=== PATIENT | male | born 1970 | race Caucasian/White ===

== ENCOUNTER → 2020-07-03 09:12 | Outpatient (BNVA) | payer OTHER, SELFPAY | PROVIDERS: PCP Internal Medicine; Referring Provider Internal Medicine; Visit Provider Physician Assistant | DX: M75.81 Other shoulder lesions, right shoulder (principal) | CPT/HCPCS: 99213 ==

== ENCOUNTER 2020-07-31 08:16 | Outpatient (REF) | payer OTHER, SELFPAY ==
--- NOTE | 2020-07-31 08:59 | XR_ITS ---
EXAMINATION: KUB CLINICAL INFORMATION: Abdominal pain COMPARISON: None TECHNIQUE: Supine view of the abdomen and pelvis FINDINGS: There are no dilated loops of bowel. There is no evidence of free air. No calcifications are seen. Bony structures are unremarkable. XR/XR lumbar spine 2-3V IMPRESSION: Unremarkable exam. EXAMINATION: Lumbar spine x-ray CLINICAL INFORMATION: Pain COMPARISON: None. TECHNIQUE: 3 views lumbar spine FINDINGS: Bone alignment is normal. No fracture or dislocation is seen. Disc spaces are normal. IMPRESSION: Unremarkable examination.
--- NOTE | 2020-07-31 08:59 | XR_ITS ---
EXAMINATION: KUB CLINICAL INFORMATION: Abdominal pain COMPARISON: None TECHNIQUE: Supine view of the abdomen and pelvis FINDINGS: There are no dilated loops of bowel. There is no evidence of free air. No calcifications are seen. Bony structures are unremarkable. XR/XR abdomen min 2V IMPRESSION: Unremarkable exam. EXAMINATION: Lumbar spine x-ray CLINICAL INFORMATION: Pain COMPARISON: None. TECHNIQUE: 3 views lumbar spine FINDINGS: Bone alignment is normal. No fracture or dislocation is seen. Disc spaces are normal. IMPRESSION: Unremarkable examination.
[2020-07-31 09:35] LABS: MANUAL DIFF FLAG NO
[2020-07-31 09:45] LABS: Basophils Absolute Auto 0.1 X10*3/uL (0.0-0.2); Basophils Percent Auto 0.7 % (0-2); Eosinophils Absolute Auto 0.4 X10*3/uL (0.0-0.4); Hematocrit 43.4 % (42-52); Hemoglobin 14.7 g/dl (14.0-18.0); Imm Gran Abs Auto 0.03 X10*3/uL (0.00-0.03); Imm Gran Pct Auto 0.3 % (0.0-0.4); Lymphocytes Absolute Auto 3.3 X10*3/uL (1.2-4.9); Lymphocytes Percent Auto 37.6 % (20-40); Mean Corpuscular HGB Conc 33.9 g/dl (31.0-36.0); Mean Corpuscular Hemoglobin 30.2 pg (27.0-33.0); Mean Corpuscular Volume 89.3 fL (80-98); Mean Platelet Volume 11.2 fL (9.4-12.4); Monocytes Absolute Auto 0.7 X10*3/uL (0.1-1.2); Monocytes Percent Auto 7.7 % (2-11); Neutrophils Absolute Auto 4.3 X10*3/uL (2.0-8.3); Neutrophils Percent Auto 49.7 % (45-73); Platelet Count 316 X10*3/uL (160-400); Red Blood Count 4.86 X10*6/uL (4.60-5.80); Red Cell Distribution Width 12.1 % (11.0-16.0); White Blood Count 8.7 X10*3/uL (4.8-10.8)
[2020-07-31 10:08] LABS: Alanine Aminotransferase 34 U/L (0-40); Albumin Level 4.8 g/dL (3.5-5.0); Alkaline Phosphatase 88 U/L (39-117); Anion Gap 11 (12-20); Aspartate Amino Transferase 21 U/L (5-37); Bilirubin Total 0.5 mg/dL (0.0-1.0); Blood Urea Nitrogen 15 mg/dL (9-16); C Reactive Protein 0.99 mg/dL (< or = 0.50); Calcium 9.3 mg/dL (8.4-10.2); Carbon Dioxide 30 mmol/L (22-29); Chloride 105 mmol/L (96-108); Cholesterol 160 mg/dL; Estimated Glomerular Filt Rate > 60; Glucose Fasting 106 mg/dL (60-99); HDL Cholesterol 31 mg/dL; LDL Cholesterol Calculated 73 mg/dl; Sodium 141 mmol/L (135-145); Total Protein 7.3 g/dL (6.5-8.0); Triglycerides 282 mg/dL
[2020-07-31 10:30] LABS: TSH reflex Free T4 0.28 mIU/mL (0.32-4.0)
[2020-07-31 10:52] LABS: Glucose Urine UA NEG (NEG); Leukocyte Esterase Urine NEG (NEG); Nitrite Urine NEG (NEG); Specific Gravity - Urine 1.015 (1.005-1.025); Urine Blood NEG (NEG); Urine Ketones NEG (NEG); Urine Protein NEG (NEG-TRACE)
[2020-07-31 10:58] LABS: Appearance Urine CLEAR; Color Urine YELLOW
[2020-07-31 11:03] LABS: Free T4 (Free Thyroxine) 1.04 ng/dL (0.71-1.85)
[2020-07-31 11:07] LABS: Erythrocyte Sedimentation Rate 5 MM/HR (0-15)
== END 2020-07-31 08:17 | disposition home or self-care (01) ==
LOC: HO.LAB 08:16
PROVIDERS: Visit Provider Internal Medicine
DX: Z00.00 Encounter for general adult medical examination without abnormal findings (principal); F17.200 Nicotine dependence, unspecified, uncomplicated; M79.601 Pain in right arm; M54.5 Low back pain; G43.909 Migraine, unspecified, not intractable, without status migrainosus; I10 Essential (primary) hypertension; E66.9 Obesity, unspecified; R10.9 Unspecified abdominal pain
CPT/HCPCS: 36415; 72100; 74019; 80053; 80061; 81003; 84153; 84439; 84443; 85025; 85652; 86140

== ENCOUNTER 2020-11-04 08:00 | Outpatient (RCR) | payer OTHER, SELFPAY ==
[2020-08-20 08:10] VITALS: BP 158/96; PULSE 72
--- NOTE | 2020-08-20 16:43 | MHC.PT.EP ---
[facility] [place] Office [place] Office [place] Office [address] Reagan Meza [address] [phone] F: [phone] F: [phone] F: [phone] F: [phone] Physical Therapy Plan of Care Date of Evaluation: 08/20/20 Date of Surgery: 10/30/19 Diagnosis: PAIN IN RIGHT ARM (M79.601) OTHER SHOULDER LESIONS, UNSPECIFIED SHOULDER (M75.80) PER DR. RESENDEZ Assessment: POOJA ARRIVES WITH C/O SHOULDER AND ARM PAIN. IMPAIRMENTS INCLUDE DECREASED CERVICAL, SHOULDER ROM AND STRENGTH, DECREASED BICEPS STRENGTH, ALTERED POSTURE AND POSITIONING, DECREASED SOFT TISSUE MOBILITY, INCREASED PAIN. FUNCTIONAL LIMITATIONS INCLUDE DECREASED TOLERANCE TO LIFTING, REACHING, PUSHING, PULLING AND LIFTING. HE REPORTS DECREASED ABIOLITY TO PERFORM HOMEMAKING AND SELF CARE TASKS, DECRESAED ABILITY TO PARTICIPATE IN WORK AND RECREATIONAL ACTIVITIES AND DISRUPTED SLEEP. HE IS A GOOD CANDDIDATE FOR PT TO ADDRESS IMPAIRMENTS AND IMPROVE FUNCTIONAL OUTCOMES. Frequency and Duration: The patient will be seen 2 X WEEK FOR 6 WEEKS Short Term Goals: INITIATE HEP AND PROMOTE SELF MANAGEMENT OF SYMPTOMS IN 6 WEEKS Longterm Goals: FULL, PAIN FREE GLENOHUMERAL MOBILITY IN 6 W[address]KS TO BE ABLE TO PLACE OBJECT OF AT LEAST 3# ON TO SHELF ABOVE SHOULDER HEIGHT IN 6 WEEKS TO REPORT PAIN NO GREATER THAN 2/10 WITH ADLs IN 6 WEEKS SPADI SCORE OF NO GREATER THAN 45% DISABILITY IN 6 WEEKS [ End ] Treatment Plan: Modalities to reduce pain, spasms and effusion. Manual therapy to restore motion and function. Therapeutic exercise to improve strength and flexibility. Neuromuscular re-education for posture and balance. Therapeutic activities to return to functional activities of daily living. Please sign and return to therapist. Thank you for your referral.
--- NOTE | 2021-01-12 14:19 | MHC.PT.DC ---
[facility] [place] Office [place] Office [place] Office [address] Reagan Meza [address] [facility] [phone] F: [phone] F: [phone] F: [phone] F: [phone] Physical Therapy Discharge Report Diagnosis: PAIN IN RIGHT ARM (M79.601) OTHER SHOULDER LESIONS, UNSPECIFIED SHOULDER (M75.80) PER DR. RESENDEZ Date of Surgery: 10/30/19 Date of Evaluation: 08/20/20 Date of Discharge: 01/12/21 Treatments to Date: 12 Cancellations to Date: 0 No Shows to Date: 0 Discharge Status: Independent with HEP Discharge Summary: INSURANCE VISITS ARE FINISHED OF TODAY, HE IS INDEPENDENT WITH HEP AND ABLE TO SELF MANAGE SYMPTOMS AR THIS TIME. DC TO HEP Electronically signed by: Luanne Badillo PT DPT Please sign and return to therapist. Thank you for your referral.
== END 2021-01-12 14:21 | disposition other institution (70) ==
LOC: HO.PT 08:00
PROVIDERS: PCP Internal Medicine; Visit Provider Internal Medicine
DX: M79.601 Pain in right arm (principal); M75.80 Other shoulder lesions, unspecified shoulder
CPT/HCPCS: 97033; 97110; 97140; 97162; 97530; 97535

== ENCOUNTER 2020-11-10 09:43 | Outpatient (REF) | payer OTHER, SELFPAY ==
--- NOTE | ~2020-11-10 | CT_ITS ---
EXAMINATION: CT HEAD WITHOUT CONTRAST CLINICAL INFORMATION: Headache COMPARISON: None TECHNIQUE: Contiguous axial imaging was performed from the skull base to vertex without intravenous administration of contrast. This CT examination was performed using dose optimization techniques as appropriate, variously including the following: *Automated exposure control *Adjustment of mA and/or kV according to patient size (this includes techniques or standardized protocols for targeted exams where dose is matched to indication/reason for exam; i.e. extremities or head) *Use of iterative reconstruction technique DLP: 824 mGy-cm FINDINGS: There is no evidence of acute intracranial hemorrhage or territorial infarction. No abnormal mass effect or midline shift is seen. Martinez to white matter differentiation is well preserved. No extra-axial fluid collections are identified. The ventricles are normal in size. There is no abnormal attenuation within the brain parenchyma. The osseous structures and soft tissues are normal. There are mild soft tissue thickening in the right maxillary, bilateral ethmoid and left frontal sinuses. CT/CT head/brain wo con IMPRESSION: No acute intracranial findings. Mild inflammatory changes in the paranasal sinuses.
== END 2020-11-10 09:44 | disposition home or self-care (01) ==
LOC: HO.CT 09:43
PROVIDERS: Visit Provider Internal Medicine
DX: R51.9 Headache, unspecified (principal); G89.29 Other chronic pain
CPT/HCPCS: 70450

== ENCOUNTER 2021-11-08 09:53 | Outpatient (REF) | payer OTHER, SELFPAY ==
[2021-11-08 10:24] LABS: MANUAL DIFF FLAG NO
[2021-11-08 10:40] LABS: Basophils Absolute Auto 0.1 X10*3/uL (0.0-0.2); Eosinophils Absolute Auto 0.5 X10*3/uL (0.0-0.4); Eosinophils Percent Auto 5.3 % (0-4); Hematocrit 45.2 % (42.0-52.0); Hemoglobin 15.5 g/dl (14.0-18.0); Imm Gran Abs Auto 0.04 X10*3/uL (0.00-0.03); Imm Gran Pct Auto 0.4 % (0.0-0.4); Lymphocytes Absolute Auto 3.9 X10*3/uL (1.2-4.9); Lymphocytes Percent Auto 39.1 % (20-40); Mean Corpuscular HGB Conc 34.3 g/dl (31.0-36.0); Mean Corpuscular Hemoglobin 30.4 pg (27.0-33.0); Mean Corpuscular Volume 88.6 fL (80.0-98.0); Monocytes Absolute Auto 0.7 X10*3/uL (0.1-1.2); Monocytes Percent Auto 6.8 % (2-11); Neutrophils Absolute Auto 4.7 x10*3/uL (2.0-8.3); Neutrophils Percent Auto 47.4 % (45-73); Platelet Count 300 X10*3/uL (160-400); Red Cell Distribution Width 12.2 % (11.0-16.0); White Blood Count 9.9 X10*3/uL (4.8-10.8)
[2021-11-08 10:44] LABS: Appearance Urine CLEAR; Color Urine YELLOW; Glucose Urine UA NEG (NEG); Leukocyte Esterase Urine NEG (NEG); Nitrite Urine NEG (NEG); PH 6.5 (5.0-8.0); Specific Gravity - Urine 1.015 (1.005-1.025); Urine Blood NEG (NEG); Urine Ketones NEG (NEG); Urine Protein NEG (NEG-TRACE)
[2021-11-08 11:12] LABS: Alanine Aminotransferase 36 U/L (0-40); Albumin Level 4.6 g/dL (3.5-5.0); Alkaline Phosphatase 73 U/L (39-117); Anion Gap 16 (12-20); Aspartate Amino Transferase 20 U/L (5-37); Bilirubin Total 0.7 mg/dL (0.0-1.0); Blood Urea Nitrogen 12 mg/dL (9-16); C Reactive Protein 0.42 mg/dL (< or = 0.50); Carbon Dioxide 25 mmol/L (22-29); Chloride 104 mmol/L (96-108); Cholesterol 205 mg/dL; Estimated Glomerular Filt Rate > 60; Glucose Fasting 111 mg/dL (60-99); HDL Cholesterol 33 mg/dL; Potassium 4.5 mmol/L (3.3-5.1); Sodium 140 mmol/L (135-145); Total Protein 7.6 g/dL (6.5-8.0); Triglycerides 529 mg/dL; Uric Acid 6.6 mg/dL (3.4-7.0)
[2021-11-08 11:22] LABS: Erythrocyte Sedimentation Rate 2 MM/HR (0-15)
[2021-11-08 11:34] LABS: Prostate Specific Antigen 0.34 ng/mL (<0.05-4.0); Vitamin D 25-OH Total 8.8 ng/mL (>30)
[2021-11-08 11:53] LABS: Folate 13.2 ng/mL (> or = 4.0); Vitamin B12 329 pg/mL (200-900)
== END 2021-11-08 09:54 | disposition home or self-care (01) ==
LOC: HO.XRAY 09:53
PROVIDERS: PCP Internal Medicine; Visit Provider Internal Medicine
DX: E55.9 Vitamin D deficiency, unspecified (principal); E53.8 Deficiency of other specified B group vitamins; M10.9 Gout, unspecified; I10 Essential (primary) hypertension; E78.00 Pure hypercholesterolemia, unspecified; N40.0 Benign prostatic hyperplasia without lower urinary tract symptoms; M79.632 Pain in left forearm; M79.674 Pain in right toe(s)
CPT/HCPCS: 36415; 80053; 80061; 81003; 82306; 82607; 82746; 84153; 84443; 84550; 85025; 85652; 86140

== ENCOUNTER 2021-11-25 11:23 | Outpatient (REF) | payer MEDICAID, SELFPAY ==
--- NOTE | ~2021-11-25 | XR_ITS ---
EXAMINATION: XR HAND, RIGHT XR HAND, LEFT CLINICAL INFORMATION: Other specified soft tissue disorders. COMPARISON: Left wrist radiographs dated 04/26/2016. TECHNIQUE: AP, oblique, and lateral views of the right and left hands. FINDINGS: RIGHT HAND: No acute fracture or dislocation. Mild joint space narrowing with small marginal osteophyte at the 1st carpometacarpal joint. Normal carpal alignment. No osseous erosion. Probable capsular calcifications at the 2nd distal interphalangeal joint. LEFT HAND: No fracture or dislocation. Normal carpal alignment. No significant joint space narrowing or marginal osteophytes. No osseous erosion. No periarticular osteopenia. No abnormal soft tissue calcification. XR/XR hand RT min 3V IMPRESSION: Right Hand: Mild osteoarthritis at the 1st carpometacarpal joint. Left Hand: Unremarkable examination.
--- NOTE | ~2021-11-25 | XR_ITS ---
EXAMINATION: XR HAND, RIGHT XR HAND, LEFT CLINICAL INFORMATION: Other specified soft tissue disorders. COMPARISON: Left wrist radiographs dated 04/26/2016. TECHNIQUE: AP, oblique, and lateral views of the right and left hands. FINDINGS: RIGHT HAND: No acute fracture or dislocation. Mild joint space narrowing with small marginal osteophyte at the 1st carpometacarpal joint. Normal carpal alignment. No osseous erosion. Probable capsular calcifications at the 2nd distal interphalangeal joint. LEFT HAND: No fracture or dislocation. Normal carpal alignment. No significant joint space narrowing or marginal osteophytes. No osseous erosion. No periarticular osteopenia. No abnormal soft tissue calcification. XR/XR hand LT min 3V IMPRESSION: Right Hand: Mild osteoarthritis at the 1st carpometacarpal joint. Left Hand: Unremarkable examination.
[2021-11-25 12:04] LABS: Estimated Average Glucose 108 mg/dL; Hemoglobin A1c % 5.4 %
[2021-11-25 12:33] LABS: Rheumatoid Factor < 15.0 IU/mL (<15.0)
[2021-11-25 12:38] LABS: Erythrocyte Sedimentation Rate 3 MM/HR (0-15)
[2021-11-27 14:31] LABS: Anti Nuclear Antibody Screen NEGATIVE (NEGATIVE)
== END 2021-11-25 11:24 | disposition home or self-care (01) ==
LOC: HO.LAB 11:23
PROVIDERS: PCP Internal Medicine; Visit Provider Internal Medicine
DX: M79.641 Pain in right hand (principal); M79.642 Pain in left hand; M79.89 Other specified soft tissue disorders; R73.01 Impaired fasting glucose
CPT/HCPCS: 36415; 73130; 83036; 85652; 86038; 86039; 86431

== ENCOUNTER → 2021-12-10 09:49 | Outpatient (REF) | payer MEDICAID, SELFPAY ==
--- NOTE | 2021-12-10 09:57 | CA_ITS ---
Acquisition Time: 2021-12-10 10:41:20 Total Exercise Time: 00:06:18 Test Indications: CP Medications: SEE CHART Protocol: CALLIE Max HR: 144 BPM 84% of Pred: 171 BPM Max BP: 184/090 mmHG Max Work Load: 7.4 METS Exercise stress test with exercise 6 min 18 sec of Callie protocol, briefly achieving 84% MPHR, with moderate shortness of breath, with 4/10 left upper/lateral chest discomfot at baseline which improved and then resolved during exercise, without arrythmia, with normotensive response to exercise, without EKG changes meeting criteria for ischemia at achieved workload. Accuracy to assess for ischemia slightly decreased due to inablity to acheive 85% MPHR. In recovery he did report a return of his baseline chest discomfort at 5/10, which feels better if he raises his left arm above his head - atypical for anginal. In late recovery EKGs showed nonspecific T wave abnormality V6. Test reviewed with Dr Neal Referred By: Kalia Varghese Overread By: ANDERS CLINE
== END ==
LOC: HO.CARD 09:49
PROVIDERS: PCP Internal Medicine; Visit Provider Internal Medicine
DX: R07.9 Chest pain, unspecified (principal)
CPT/HCPCS: 93017

== ENCOUNTER 2022-03-29 10:37 | Outpatient (REF) | payer OTHER, SELFPAY ==
--- NOTE | ~2022-03-29 | XR_ITS ---
EXAMINATION: XR FOOT, LEFT CLINICAL INFORMATION: M79.672 - Pain in left foot. Pain between first and second metatarsal. COMPARISON: None TECHNIQUE: AP, lateral, and oblique views of the left foot. FINDINGS: No acute or healing fracture, dislocation, destructive process. No periostitis. No focal significant joint narrowing. No erosive changes or chondrocalcinosis. No hallux valgus. There are borderline posterior and plantar calcaneal spurs. Retrocalcaneal recess preserved. Subtalar joint unremarkable. XR/XR foot LT min 3V IMPRESSION: Borderline tiny posterior and plantar calcaneal spurs.
== END 2022-03-29 10:38 | disposition home or self-care (01) ==
LOC: HO.XRAY 10:37
PROVIDERS: PCP Internal Medicine; Visit Provider Internal Medicine
DX: M79.672 Pain in left foot (principal)
CPT/HCPCS: 73630

== ENCOUNTER → 2022-04-21 13:33 | Outpatient (BNVA) | payer OTHER, SELFPAY | PROVIDERS: PCP Internal Medicine; Visit Provider Internal Medicine | DX: R07.9 Chest pain, unspecified (principal); I10 Essential (primary) hypertension; E78.1 Pure hyperglyceridemia; F17.210 Nicotine dependence, cigarettes, uncomplicated; Z79.899 Other long term (current) drug therapy | CPT/HCPCS: 93005; 99202 ==

== ENCOUNTER → 2022-07-13 13:23 | Outpatient (BNVA) | payer OTHER, SELFPAY | PROVIDERS: PCP Internal Medicine; Referring Provider Internal Medicine; Visit Provider Surgery | DX: K42.9 Umbilical hernia without obstruction or gangrene (principal); E78.1 Pure hyperglyceridemia; R73.01 Impaired fasting glucose; E66.9 Obesity, unspecified; F17.210 Nicotine dependence, cigarettes, uncomplicated; Z68.30 Body mass index [BMI] 30.0-30.9, adult | CPT/HCPCS: 99202 ==

== ENCOUNTER 2022-08-10 14:03 | Outpatient (REF) | payer OTHER, SELFPAY ==
--- NOTE | ~2022-08-10 | XR_ITS ---
EXAMINATION: XR ANKLE, RIGHT CLINICAL INFORMATION: Pain COMPARISON: None TECHNIQUE: AP, lateral, and mortise views of the right ankle. FINDINGS: The ankle mortise and subtalar joints are normal. No bony erosive changes or loose bodies seen. There is a small calcaneal heel enthesophyte. XR/XR ankle RT min 3V IMPRESSION: Small calcaneal heel enthesophyte. No visible acute fracture or dislocation seen. The soft tissues are normal.
== END 2022-08-10 14:04 | disposition home or self-care (01) ==
LOC: HO.XRAY 14:03
PROVIDERS: PCP Internal Medicine; Referring Provider Internal Medicine; Visit Provider Nurse Practitioner Family
DX: R07.9 Chest pain, unspecified (principal); E78.1 Pure hyperglyceridemia; I10 Essential (primary) hypertension; M25.571 Pain in right ankle and joints of right foot
CPT/HCPCS: 73610; 93005; 99212

== ENCOUNTER → 2022-08-23 07:32 | Outpatient (REF) | payer OTHER, SELFPAY ==
--- NOTE | 2022-08-23 07:36 | CA_ITS ---
Transthoracic Echocardiogram Patient (Last, First, Middle): Ramon Rush, Gender: Male Date of : 1970 Age: 51 Procedure Date: 08/23/2022 Procedure Type: Transthoracic Echocardiogram Location: OP Height: 180.34 cm Weight: 89.36 kg BSA: 2.10 m2 Heart Rate: 72 bpm BP: 145 / 95 mmHg [employer] Instructor: ZAID Moon MD: Efrain Galarza MD Proposal Coordinator: Lizandro Casas MD Symptoms: R07.9 - Chest pain, unspecified Study Quality: Fair/Contrast ECG Rhythm: Sinus Conclusions: - 1. Normal LV systolic function 2. Normal cardiac valvular Doppler 3. Upper limits of normal ascending aortic size 4. No gross pericardial effusion Findings Procedure Information Contrast agent, definity, is being given per protocol without apparent complications. Left Ventricle Normal left ventricular size, thickness, and systolic function. The visually estimated ejection fraction is between 55-60%. Spectral Doppler is indicative of a normal filling pattern. Right Ventricle Normal right ventricular cavity size and systolic function. Atria The left atrium is normal in size. There is lipomatous hypertrophy of the interatrial septum. There is no evidence of interatrial shunt. The right atrium is normal in size. Aortic Valve There is mild calcification of the aortic valve. There is no aortic valve stenosis. There is no aortic valve regurgitation. Mitral Valve Likely normal mitral valve structure and function. There is no mitral valve stenosis. Tricuspid Valve Likely normal tricuspid valve structure and function. Tricuspid regurgitation envelope is inadequate for calculation of right ventricular systolic pressure. Normal right atrial pressure. Great Vessels All visible segments of the aorta are normal in size. The pulmonary artery was not well visualized. Venous The inferior vena cava is normal in size and collapses greater than 50% with inspiration. Pericardium/Pleural There is no evidence of pericardial effusion. Prior Study Comparison No prior study available for comparison. Measurements 2D Linear Measurements IVSd: 1.19 0.6-0.9/0.6-1.0 cm LVIDd: 5.21 3.9-5.3/4.2-5.9 cm LVIDd Index: 2.48 2.4-3.2/2.2-3.1 cm/m2 LVIDs: 2.94 2.0-3.6 cm LVPWd: 1.12 0.7-1.1 cm LA Diam: 4.00 2.7-3.8/3.0-4.0 cm LAIDs Index: 1.90 1.5-2.3 cm/m2 LV Mass: 295.19 67-162/88-224 g LV Mass Index: 140.57 43-95/49-115 g/m2 LVOT Diam: 2.30 3.0+(-)1.3 cm 2D Systolic Function EF 4C: 55.70 >55% EF 2C: 63.90 >55% EF BiP: 59.70 >55% Mitral Valve MV Pk E: 0.76 MV PK A: 0.57 MV Decel Time: 247.00 E/A: 1.30 E'Lateral: 11.00 E'Medial: 7.94 E/E' Med: 9.60 E/E' Lat: 6.90 PHT: 72.00 MVA PHT: 3.06 Decel Gilliam: 3.09 Aortic Valve AoV Pk Carlos: 1.51 AoV Mn Carlos: 0.96 AoV VTI: 0.25 AoV Pk Grad: 9.00 Aov Mn Grad: 4.00 ANAHY Cont.VTI: 3.40 LVOT LVOT Pk Carlos: 1.15 LVOT Mn Carlos: 0.77 LVOT VTI: 0.21 LVOT Pk Grad: 5.00 LVOT Mn Grad: 3.00 LVOT Diam: 2.30 LVOT Area: 4.15 Diastolic Function MV Pk E: 0.76 MV Pk A: 0.57 E/A: 1.30 E'Medial: 7.94 E/E' Med: 9.60 E' Laterial: 11.00 E/E' Lat: 6.90 Right Ventricle TAPSE (mm): 20.30 TVS' Carlos: 12.40 Tricuspid Valve RA Press: 3.00 Great Vessels Aorta Sinus of Valsalva: 3.70 2.0-3.5 cm Ao Asc: 3.70 2.1-3.4 cm Pulmonary Valve PV Pk Carlos: 1.05 Peak PV Grad: 4.00 Updated in Other Vendor System with Status of Final Lizandro Casas MD electronically signed on 08/26/2022 3:24:22 PM with status of Final
== END ==
LOC: HO.CARD 07:32
PROVIDERS: PCP Internal Medicine; Visit Provider Internal Medicine
DX: R07.9 Chest pain, unspecified (principal)
CPT/HCPCS: 93306; Q9957

== ENCOUNTER → 2022-09-07 08:17 | Outpatient (REF) | payer OTHER, SELFPAY ==
--- NOTE | 2022-09-07 08:18 | CA_ITS ---
Acquisition Time: 2022-09-07 08:28:14 Total Exercise Time: 00:08:00 Test Indications: CP Medications: SEE CHART Protocol: CALLIE Max HR: 157 BPM 92% of Pred: 170 BPM Max BP: 218/114 mmHG Max Work Load: 10.1 METS Exercise stress test with exercise 8 min of Callie protocol, achieving 92% MPHR, 10.1 METs, without anginal symptoms, with isolated PACs and PVCs, with hypertensive response to exercise with max BP 218/114, without EKG changes meeting criteria for ischemia. In recovery there is downslope of ST V6, nonspecific. BP gradually improved in recovery down to 142/100, asymptomatic. He was given his usual home Losartan 50mg which he had not taken yet this am. Test reviewed with Dr Neal. Referred By: Efrain Galarza Overread By: ANDERS CLINE
== END ==
LOC: HO.CARD 08:17
PROVIDERS: PCP Internal Medicine; Visit Provider Internal Medicine
DX: R07.9 Chest pain, unspecified (principal)
CPT/HCPCS: 93017

== ENCOUNTER 2023-03-23 09:33 | Outpatient (REF) | payer OTHER, SELFPAY | END 2023-03-23 09:34 | disposition home or self-care (01) | LOC: HO.NEURO 09:33 | PROVIDERS: PCP Internal Medicine; Visit Provider Internal Medicine | DX: R20.2 Paresthesia of skin (principal); M79.641 Pain in right hand; M79.642 Pain in left hand | CPT/HCPCS: 95886; 95911 ==

== ENCOUNTER 2023-08-17 10:21 | Outpatient (AMB) | payer OTHER, SELFPAY ==
[2023-08-17 10:22] VITALS: BP 150/105; PULSE 71; O2SAT 98; BMI 28.9
--- NOTE | 2023-08-17 10:22 | MHC.PC.OV ---
Vital Signs 08/17/23 10:22 08/17/23 11:00 Height 5 ft 8 in Weight 190 lb BMI 28.9 BP 150/105 H 150/100 H Blood Pressure Location Lt brachial Lt brachial Position Sitting Sitting Pulse 71 Pulse Source Pulse Oximeter Pulse Oximetry (%) 98 Oxygen Delivery Method Room Air Intake Visit Reasons: discuss labs+concerns Network Consultant Required: No Rn Labor And Delivery: Not Required per policy Accompanied by: Self / Same As Patient Allergies tizanidine [TIZANIDINE] Allergy (Severe, Verified 08/17/23 10:50) FACIAL SWELLING, angioedema Medication List - Last Reconciled 08/17/23 by Kalia Varghese MD blood pressure test kit-large (Self-Taking Blood Pressure kit) As directed cyclobenzaprine 5 mg PO TID PRN 30 days escitalopram oxalate 5 mg PO DAILY 90 days fenofibrate 160 mg PO DAILY 90 days losartan 50 mg PO DAILY 90 days Tobacco use date assessed: 02/24/23 Dental Screening Dental Screen Date: 08/17/23 Did you have a dental visit in the last 12 months?: No Did you have a dental problem in the last 6 months where you did not have access to dental care?: No Was dental information given to patient?: Patient has dentist HPI discuss labs+concerns HPI Details Patient comes in today for his follow up visit States that he has been experiencing increased pain over his lower back lately Has also noticed some SOB and chest tightness at times; denies any chest pains He denies any headaches or dizziness No nausea/vomiting, no abdominal pain No change in bowel habits noted Needs his Escitalopram Rx refilled Was not able to get his follow up labs done prior to his appt today - states that he will go and get them done first thing tomorrow morning FORMERLY [facility], [facility] Medical History Overweight (BMI 25.0-29.9) Depression Lateral epicondylitis, right elbow Obesity (BMI 30-39.9) Smoker Low back pain Migraine Benign essential hypertension Surgical History History of surgery on arm History of arthroscopy of right shoulder Family History Father Medical history unknown Mother Hypertension Diabetes Social History Housing: Apartment Alcohol intake: current Alcohol intake frequency: a few times a month Alcohol type: beer Patient Tobacco Use Status: Current everyday Tobacco user Tobacco use type: Cigarette Cigarettes Per Day: 15 Years Smoked: 30 +/- e-Cigarette/Vaping Use: Never Used Second Hand Smoke Exposure: No service: No Current occupational status: employed Cognitive needs: No Hearing needs: No Vision needs: No Questionnaire PHQ-9 Over the last 2 weeks, how often have you been bothered by any of the following problems? Depression Screening Interpretation: Negative (is on Rx) Depression Screening Done: Yes Source: Developed by Drs. Elmer Elkins, Carson Mcgarry and colleagues, with an educational erich from [employer]. Thrive Questionnaire Date Thrive assessed: 02/24/23 Currently or been in a relationship where the following occur: no concerns reported RYAN-7 AMB Questionnaire RYAN-7 Date RYAN - 7 assessed: 02/24/23 Source: Developed by Drs. Elmer Elkins, Carson Mcgarry and colleagues, with an educational erich from [employer]. Review of Systems Const Denies chills, Reports fatigue, Denies fever(s) and Denies headache(s) ENT Denies dysphagia, Denies dizziness, Denies otalgia, Denies headache(s), Denies neck pain, Denies odynophagia and Denies sore throat Card Denies chest pain (but notes occasional chest tightness at times), Denies palpitations and Reports dyspnea (on and off lately) Resp Denies cough, Reports dyspnea (on and off lately) and Denies wheezing GI Denies abdominal pain, Denies constipation, Denies dysphagia, Denies heartburn, Denies diarrhea, Denies nausea, Denies odynophagia and Denies vomiting Denies dysuria, Denies nocturia and Denies urinary frequency Musc Reports back pain (increased, over the lower back), Reports arthralgias (on and off in the right ankle, right heel/foot and both hands), Denies joint swelling and Denies neck pain Skin/Breast Denies rash Neuro Denies dizziness and Denies headache(s) Psych Reports depression (controlled on his current Rx) Endo Reports fatigue and Denies palpitations Aller/Immun Denies wheezing Physical exam (Primary Care) Vital Signs: Last Vital Signs Pulse 71 08/17/23 10:22 BP 150/100 H 08/17/23 11:00 Pulse Ox 98 08/17/23 10:22 Oxygen Delivery Method Room Air 08/17/23 10:22 BMI result Body Mass Index 28.9 Tobacco/Smoking Status: Tobacco use Status Tobacco use date assessed 02/24/23 08/17/23 10:26 Patient Tobacco Use Status Current everyday Tobacco 08/17/23 10:26 Tobacco use type Cigarette 08/17/23 10:26 e-Cigarette/Vaping Use Never Used 08/17/23 10:26 Depression Screening Interpretation: Negative (is on Rx) Thrive Assessment: Date of Thrive Assessment Date Thrive assessed 02/24/23 08/17/23 10:26 Currently or been in a relationship where the following occur: no concerns reported Const General: no acute distress and alert HENMT Ears: TM's normal bilaterally and EAC's normal Throat: Yes posterior oropharynx normal and Yes tonsils normal (no TP congestion) Neck Neck: Yes no lymphadenopathy and Yes supple Resp Auscultation: clear to auscultation bilaterally, no rales and no wheezes Cardio Rate: regular rate Rhythm: regular rhythm Heart sounds: no murmurs GI Palpation (GI): Soft to palpation and nontender Auscultation: normal bowel sounds General: Yes no CVA tenderness Back/Spine/Pelvis Back: no CVA tenderness Thoracic/Lumbar Spine: lumbar spinal tenderness (increased lately) Skin Rashes: no rashes Extrem General: Yes no clubbing, cyanosis or edema Right upper extremity: Extremity exam: right hand Details: tenderness and no swelling Left upper extremity: hand Details: tenderness and no swelling Right lower extremity: ankle Details: tenderness Location: of the achilles tendon; no swelling and foot Details: tenderness Location: of the calcaneus Assessment and Plan Assessment & Plan (1) Benign essential hypertension: Code(s): I10 - Essential (primary) hypertension Plan: Reinforced low sodium diet - goal is systolic BP of 120 mm or less Continue Losartan 50 mg QD (2) Hypertriglyceridemia: Code(s): E78.1 - Pure hyperglyceridemia Plan: Was not able to get his follow up labs done prior to his appt today - states that he will go and get them done tomorrow morning Reinforced low cholesterol diet Continue Fenofibrate 160 mg QD Will recheck his labs and fasting lipids again in 3 months for follow up (3) Impaired fasting glucose: Code(s): R73.01 - Impaired fasting glucose Plan: FBS was elevated at 111 mg/dl on his previous labs; HgbA1c was normal at 5.4% when checked last year - will recheck his HgbA1c as well for follow up Reinforced low calorie/low carb diet (4) Migraine: Code(s): G43.909 - Migraine, unspecified, not intractable, without status migrainosus Qualifiers: Migraine type: unspecified Status migrainosus presence: without status migrainosus Intractability: not intractable Qualified Code(s): G43.909 - Migraine, unspecified, not intractable, without status migrainosus Plan: Appears controlled/stable - he was reportedly taken off both Topiramate and Fioricet by neurology a while back and he has not had any significant increase in his headaches since Follow up with neurology as scheduled (5) Right ankle pain: Code(s): M25.571 - Pain in right ankle and joints of right foot Qualifiers: Chronicity: acute Qualified Code(s): M25.571 - Pain in right ankle and joints of right foot Plan: X-rays of the right ankle done back in July 2022 revealed (+) small calcaneal heel enthesophyte He was referred to podiatry previously for this issue - to follow up with podiatry as scheduled (6) Bilateral hand pain: Code(s): M79.641 - Pain in right hand; M79.642 - Pain in left hand Plan: X-rays of both hands done a few months ago revealed (+) OA changes in the right hand; left hand x-rays are normal Arthralgia work ups done a few months ago (MARY, RF, CRP, ESR) also came back normal EMG & NCV of both hands done back in March 2023 revealed (+) 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 and mild bilateral ulnar neuropathy across the cubital tunnel Have recommended that he can try wearing some wrist braces if he wants to try conservative management first but advised also of option of seeing orthopedics for consideration for carpal tunnel release surgery if his symptoms progress Continue Cyclobenzaprine 5 mg TID PRN - Rx refilled (7) Low back pain: Code(s): M54.5 - Low back pain Qualifiers: Chronicity: unspecified Back pain laterality: midline Sciatica presence: without sciatica Qualified Code(s): M54.5 - Low back pain Plan: Discussed activity and weight-lifting restrictions to avoid aggravating his low back pain at this time Will send him for x-rays of the lumbar spine DIANNE for further evaluation Advised that he can take his Cyclobenzaprine PRN to help with his low back pain Will also try starting him on Lidocaine 5% patches QD to his lower back PRN (8) Dyspnea: Code(s): R06.00 - Dyspnea, unspecified Qualifiers: Dyspnea type: unspecified Qualified Code(s): R06.00 - Dyspnea, unspecified Plan: Will also send him for chest x-rays for further evaluation (9) Depression: Code(s): F32.A - Depression, unspecified Qualifiers: Depression Type: major depressive disorder Major depression recurrence: recurrent Active/Remission status: currently active Major depression episode severity: unspecified Qualified Code(s): F33.9 - Major depressive disorder, recurrent, unspecified Plan: Continue Escitalopram 5 mg QD - Rx refilled (10) Smoker: Code(s): F17.200 - Nicotine dependence, unspecified, uncomplicated Plan: Counseled again on smoking cessation (11) Overweight (BMI 25.0-29.9): Code(s): E66.3 - Overweight Plan: Reinforced diet/exercise as tolerated/lose weight Plan Follow up in 3 months Orders: Orders XR lumbar spine 2-3V Today M54.50 - Low back pain, unspecified XR chest 2V Today R06.00 - Dyspnea, unspecified Hemoglobin A1c Today R73.01 - Impaired fasting glucose Comprehensive [place]. Panel Fast 3 Months E78.00 - Pure hypercholesterolemia, unspecified Lipid Panel 3 Months E78.00 - Pure hypercholesterolemia, unspecified Medications: New lidocaine 5% leave on most painful area for up to 12 hrs 1 patch topical DAILY 30 ea 0RF blood pressure monitor As directed 1 ea 0RF I10 - Essential (primary) hypertension Refilled escitalopram oxalate 5 mg PO DAILY 90 days 90 tabs 1RF cyclobenzaprine 5 mg PO TID 30 days PRN 90 tabs 1RF low back pain M54.5 - Low back pain Coding Level of Care Code Est Pt Level 4 (00795) Diagnoses Benign essential hypertension I10 Hypertriglyceridemia E78.1 Impaired fasting glucose R73.01 Migraine without status migrainosus, not intractable, unspecified migraine type G43.909 Migraine type: unspecified Status migrainosus presence: without status migrainosus Intractability: not intractable Acute right ankle pain M25.571 Chronicity: acute Bilateral hand pain M79.641; M79.642 Midline low back pain without sciatica, unspecified chronicity M54.5 Chronicity: unspecified Back pain laterality: midline Sciatica presence: without sciatica Dyspnea, unspecified type R06.00 Dyspnea type: unspecified Episode of recurrent major depressive disorder, unspecified depression episode severity F33.9 Depression Type: major depressive disorder Major depression recurrence: recurrent Active/Remission status: currently active Major depression episode severity: unspecified Smoker F17.200 Overweight (BMI 25.0-29.9) E66.3
[2023-08-17 11:00] VITALS: BP 150/100
== END 2023-08-17 11:07 | disposition home or self-care (01) ==
LOC: HO.HMGH 10:21
PROVIDERS: PCP Internal Medicine; Visit Provider Internal Medicine
DX: I10 Essential (primary) hypertension (principal); E78.1 Pure hyperglyceridemia; F33.9 Major depressive disorder, recurrent, unspecified; R73.01 Impaired fasting glucose; G43.909 Migraine, unspecified, not intractable, without status migrainosus; M25.571 Pain in right ankle and joints of right foot; M79.641 Pain in right hand; M79.642 Pain in left hand; M54.50 Low back pain, unspecified; R06.00 Dyspnea, unspecified; F17.200 Nicotine dependence, unspecified, uncomplicated; E66.3 Overweight
CPT/HCPCS: 99214

== ENCOUNTER 2023-08-18 07:23 | Outpatient (REF) | payer OTHER, SELFPAY ==
--- NOTE | ~2023-08-18 | XR_ITS ---
EXAMINATION: XR LUMBOSACRAL SPINE CLINICAL INFORMATION: Lower back pain. COMPARISON: Radiographs dated 07/31/2020. TECHNIQUE: AP and lateral views of the lumbar spine and lateral view of the lumbosacral junction. FINDINGS: There is bony demineralization. Vertebral body heights and alignment are normal. The lumbar disc spaces are well-maintained. There is multi-level lumbar endplate Schmorl's node formation. No acute fracture or spondylolisthesis is seen. Posterior elements are intact. The paravertebral soft tissues are unremarkable. XR/XR lumbar spine 2-3V IMPRESSION: 1. No acute fracture or spondylolisthesis is seen. 2. The lumbar disc spaces are well-maintained. 3. There is multi-level lumbar Schmorl's node formation.
--- NOTE | ~2023-08-18 | XR_ITS ---
EXAMINATION: XR CHEST 2 VIEWS CLINICAL INFORMATION: Dyspnea. COMPARISON: Chest radiograph dated 02/26/2017. TECHNIQUE: Frontal and lateral views of the chest were obtained. FINDINGS: The heart, great vessels, pulmonary vasculature and mediastinum are normal. The lungs show no focal infiltrate, effusion or pneumothorax. There is no acute osseous abnormality. XR/XR chest 2V IMPRESSION: No active cardiopulmonary disease.
[2023-08-18 07:37] LABS: MANUAL DIFF FLAG NO
[2023-08-18 07:45] LABS: Basophils Absolute Auto 0.1 X10*3/uL (0.0-0.2); Basophils Percent Auto 1.1 % (0-2); Eosinophils Absolute Auto 0.6 X10*3/uL (0.0-0.4); Eosinophils Percent Auto 5.6 % (0-4); Hematocrit 42.9 % (42.0-52.0); Hemoglobin 14.6 g/dl (14.0-18.0); Imm Gran Abs Auto 0.04 X10*3/uL (0.00-0.03); Imm Gran Pct Auto 0.4 % (0.0-0.4); Lymphocytes Absolute Auto 3.7 X10*3/uL (1.2-4.9); Lymphocytes Percent Auto 35.5 % (20-40); Mean Corpuscular Hemoglobin 30.7 pg (27.0-33.0); Mean Corpuscular Volume 90.3 fL (80.0-98.0); Mean Platelet Volume 10.9 fL (9.4-12.4); Monocytes Absolute Auto 0.9 X10*3/uL (0.1-1.2); Monocytes Percent Auto 8.2 % (2-11); Neutrophils Absolute Auto 5.1 x10*3/uL (2.0-8.3); Neutrophils Percent Auto 49.2 % (45-73); Platelet Count 320 X10*3/uL (160-400); Red Blood Count 4.75 X10*6/uL (4.60-5.80); Red Cell Distribution Width 12.4 % (11.0-16.0); White Blood Count 10.4 X10*3/uL (4.8-10.8)
[2023-08-18 07:57] LABS: Estimated Average Glucose 103 mg/dL; Hemoglobin A1c % 5.2 % (<6.0)
[2023-08-18 08:02] LABS: Appearance Urine Clear; Color Urine Yellow; Glucose Urine UA Negative (Negative); Leukocyte Esterase Urine Negative (Negative); Nitrite Urine Negative (Negative); Urine Blood Negative (Negative); Urine Ketones Negative (Negative); Urine Protein Negative (Neg-Trace)
[2023-08-18 08:22] LABS: Erythrocyte Sedimentation Rate 3 MM/HR (0-15)
[2023-08-18 08:26] LABS: Alanine Aminotransferase 20 U/L (0-40); Albumin Level 4.6 g/dL (3.5-5.0); Alkaline Phosphatase 63 U/L (39-117); Anion Gap 13 (12-20); Aspartate Amino Transferase 18 U/L (5-37); Bilirubin Total 0.5 mg/dL (0.0-1.0); Blood Urea Nitrogen 15 mg/dL (9-16); C Reactive Protein 0.32 mg/dL (< or = 0.50); Calcium 9.3 mg/dL (8.4-10.2); Carbon Dioxide 24 mmol/L (22-29); Chloride 109 mmol/L (96-108); Cholesterol 148 mg/dL (<200); Estimated Glomerular Filt Rate > 60; Glucose Fasting 99 mg/dL (60-99); HDL Cholesterol 45 mg/dL (>40); LDL Cholesterol Calculated 78 mg/dL (<100); Potassium 3.8 mmol/L (3.3-5.1); Sodium 142 mmol/L (135-145); Total Protein 7.4 g/dL (6.5-8.0); Triglycerides 125 mg/dL (<150)
[2023-08-18 08:34] LABS: TSH reflex Free T4 0.76 uIU/mL (0.32-4.0); Vitamin D 25-OH Total 10.2 ng/mL (>30)
== END 2023-08-18 07:24 | disposition home or self-care (01) ==
LOC: HO.XRAY 07:23
PROVIDERS: PCP Internal Medicine; Visit Provider Internal Medicine
DX: E78.00 Pure hypercholesterolemia, unspecified (principal); R73.01 Impaired fasting glucose; I10 Essential (primary) hypertension; R30.0 Dysuria; E55.9 Vitamin D deficiency, unspecified; M79.7 Fibromyalgia; R20.2 Paresthesia of skin; M25.571 Pain in right ankle and joints of right foot; M79.641 Pain in right hand; M79.642 Pain in left hand; M54.50 Low back pain, unspecified; R06.00 Dyspnea, unspecified
CPT/HCPCS: 36415; 71046; 72100; 80053; 80061; 81003; 82306; 83036; 84443; 85025; 85652; 86140

== ENCOUNTER 2023-08-22 13:30 | Outpatient (AMB) | payer OTHER, SELFPAY ==
[2023-08-22 13:32] VITALS: BP 136/80; PULSE 78; O2SAT 99; BMI 28.5
--- NOTE | 2023-08-22 13:32 | A.OFFPC_ITS ---
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: No Accompanied by: Self / Same As Patient Allergies tizanidine [TIZANIDINE] Allergy (Severe, Verified 11/22/23 12:37) FACIAL SWELLING, angioedema Medication List - Last Reconciled 08/22/23 by Kalia Varghese MD blood pressure monitor As directed blood pressure test kit-large (Self-Taking Blood Pressure kit) As directed cyclobenzaprine 5 mg PO TID PRN 30 days escitalopram oxalate 5 mg PO DAILY 90 days fenofibrate 160 mg PO DAILY 90 days lidocaine 5% 1 patch topical DAILY losartan 50 mg PO DAILY 90 days Tobacco use date assessed: 08/22/23 Dental Screening Dental Screen Date: 08/22/23 Did you have a dental visit in the last 12 months?: No Did you have a dental problem in the last 6 months where you did not have access to dental care?: No Was dental information given to patient?: No HPI physical/paperwork HPI Details Patient comes in today for his annual physical examination States that he feels okay He denies any headaches or dizziness Denies any chest pains, no increased SOB No nausea/vomiting, no abdominal pains No change in bowel habits noted He needs a couple of his Rx refilled Had his follow up labs done a few days ago - to discuss his results Adds that his sexual partner recently informed him that she tested positive for trichomonas infection and had to be treated for it and he is advised to get himself checked for this as well and treated if necessary Patient states that he's had no acute symptoms He has never had a screening colonoscopy done in the past - was referred for colonoscopy last year but states that he was never contacted and scheduled for an appointment [facility] Medical History (Updated 11/22/23 @ 12:57 by Kalia Varghese MD) Vitamin D deficiency Overweight (BMI 25.0-29.9) Depression Lateral epicondylitis, right elbow Obesity (BMI 30-39.9) Smoker Low back pain Migraine Benign essential hypertension Surgical History History of surgery on arm History of arthroscopy of right shoulder Family History Father Medical history unknown Mother Hypertension Diabetes Social History Housing: Apartment Alcohol intake: current Alcohol intake frequency: a few times a month Alcohol type: beer Patient Tobacco Use Status: Current everyday Tobacco user Tobacco use type: Cigarette Cigarettes Per Day: 15 Years Smoked: 30 +/- e-Cigarette/Vaping Use: Never Used Second Hand Smoke Exposure: No service: No Current occupational status: employed Cognitive needs: No Hearing needs: No Vision needs: No Questionnaire PHQ-9 Over the last 2 weeks, how often have you been bothered by any of the following problems? 1. Little interest or pleasure in doing things: not at all 2. Feeling down, depressed, or hopeless: not at all 3. Trouble falling or staying asleep, or sleeping too much: not at all 4. Feeling tired or having little energy: not at all 5. Poor appetite or overeating: not at all 6. Feeling bad about yourself - or that you are a failure or have let yourself or your family down: not at all 7. Trouble concentrating on things, such as reading the newspaper or watching television: not at all 8. Moving or speaking so slowly that other people could have noticed. Or the opposite - being so fidgety or restless that you have been moving around a lot more than usual: not at all 9. Thoughts that you would be better off or of hurting yourself in some way: not at all Total score: 0 Depression Screening Interpretation: Negative (is on Rx) Depression Screening Done: Yes 05507 - PHQ-9 Billing: Yes Source: Developed by Drs. Elmer Elkins, Regine Sharma, Carson Lopez and colleagues, with an educational erich from [employer]. Thrive Questionnaire Date Thrive assessed: 08/22/23 I am a: Patient What is your living situation today?: I have a steady place to live Within the past 12 months, did the food you bought not last and you didn't have the money to get more?: Never true Within the past 12 months, did you worry whether your food would run out before you got money to buy more?: Never true Do you have trouble paying for medicines?: No Do you have trouble getting transportation to medical appointments?: No Do you have trouble paying your heating and electricity bill?: No Do you have trouble taking care of your child, family member or friend?: No Do you have trouble with day-to-day activities such as bathing, preparing meals, shopping, managing finances, etc.?: No Are you currently unemployed and looking for a job?: No Are you interested in more education?: No Please select the resources that you would like help with: None Currently or been in a relationship where the following occur: no concerns reported AUDIT C Alcohol Use Questionnaire (AUDIT-C) 1. How often do you have a drink containing alcohol?: 2-4 times a month 3. How often do you have six or more drinks on one occasion?: Never Total Score: 2 Score Reviewed/Action Taken: Yes RYAN-7 AMB Questionnaire RYAN-7 Date RYAN - 7 assessed: 08/22/23 Feeling nervous, anxious, or on edge: 0 = Not at all Not being able to stop or control worryin = Not at all Worrying too much about different things: 0 = Not at all Trouble relaxin = Not at all Being so restless that it is hard to sit still: 0 = Not at all Becoming easily annoyed or irritable: 0 = Not at all Feeling afraid as if something awful might happen: 0 = Not at all Total RYAN-7 score (0-4 normal; 5-9 mild; 10-14 moderate; 15-21 severe): 0 Source: Developed by Drs. Elmer Elkins, Regine Sharma, Carson Lopez and colleagues, with an educational erich from [employer]. Review of Systems Const Denies chills, Denies fatigue, Denies fever(s), Denies headache(s), Denies malaise and Denies weakness Eyes Denies blurry vision, Denies change in vision, Denies irritation and Denies itchy eyes ENT Denies dysphagia, Denies dizziness, Denies otalgia, Denies headache(s), Denies nasal congestion, Denies neck pain, Denies odynophagia and Denies sore throat Card Denies chest pain, Denies rapid heart rate, Denies irregular heart rhythm, Den ies palpitations and Denies dyspnea Resp Denies chest congestion, Denies cough, Denies dyspnea and Denies wheezing GI Denies abdominal pain, Denies bloating, Denies constipation, Denies dysphagia, Denies heartburn, Denies diarrhea, Denies nausea, Denies odynophagia and Denies vomiting Denies hematuria, Denies difficulty urinating, Denies dysuria, Denies urinary frequency and Denies urinary urgency Musc Denies back pain, Denies arthralgias, Denies joint swelling, Denies muscle weakness and Denies neck pain Skin/Breast Denies change in pigmentation, Denies lesions, Denies rash and Denies unusual bruising Neuro Denies dizziness, Denies headache(s), Denies paresthesias and Denies weakness Endo Denies fatigue and Denies palpitations Aller/Immun Denies itchy eyes and Denies wheezing Physical exam (Primary Care) Vital Signs: Last Vital Signs Pulse 78 08/22/23 13:32 BP 136/80 08/22/23 13:32 Pulse Ox 99 08/22/23 13:32 Oxygen Delivery Method Room Air 08/22/23 13:32 BMI result Body Mass Index 28.5 Tobacco/Smoking Status: Tobacco use Status Tobacco use date assessed 08/22/23 08/22/23 13:34 Patient Tobacco Use Status Current everyday Tobacco 08/22/23 13:34 Tobacco use type Cigarette 08/22/23 13:34 e-Cigarette/Vaping Use Never Used 08/22/23 13:34 PHQ-9: PHQ-9 Score PHQ-9: Total score 0 11/22/23 12:40 Depression Screening Interpretation: Negative (is on Rx) Thrive Assessment: Date of Thrive Assessment Date Thrive assessed 08/22/23 08/22/23 13:34 Currently or been in a relationship where the following occur: no concerns reported Const General: no acute distress, alert and awake Orientation/consciousness: patient oriented x3 HENMT Head: Yes normocephalic and Yes atraumatic Ears: external ears normal, TM's normal bilaterally and EAC's normal General nose exam: No nasal discharge present Face and sinus: Yes normal facial exam and Yes sinuses nontender Teeth and gingiva: dentition normal Throat: Yes posterior oropharynx normal and Yes tonsils normal (no TP congestion) Eyes Eyelids: Yes eyelids normal Conjunctivae: conjunctivae normal Pupils: Equal, round and reactive pupils present EOM: EOMs intact bilaterally Neck Neck: Yes no lymphadenopathy and Yes supple Thyroid: Thyroid normal Resp Auscultation: clear to auscultation bilaterally, no rales and no wheezes Cardio Rate: regular rate Rhythm: regular rhythm Heart sounds: no murmurs GI Palpation (GI): Soft to palpation, nontender and No hepatosplenomegaly present Auscultation: normal bowel sounds General: Yes no CVA tenderness Back/Spine/Pelvis Back: no CVA tenderness Thoracic/Lumbar Spine: thoracic and lumbar spine normal to inspection Skin Lesions: no lesions Rashes: no rashes Neuro General: patient oriented x3, moves all extremities, no focal motor deficits and CN's II-XI intact bilaterally Cranial nerves: Yes Equal, round and reactive pupils present Cognition (Neuro): normal cognition Gait exam (Neuro): Normal gait present Extrem General: Yes no clubbing, cyanosis or edema Results Reviewed Results Reviewed: Laboratory Tests 08/18/23 08/18/23 08/18/23 07:32 07:32 07:34 WBC 10.4 Hgb 14.6 Hct 42.9 Plt Count 320 ESR 3 Sodium 142 Potassium 3.8 Creatinine 0.87 Estimated GFR > 60 Fasting Glucose 99 Hemoglobin A1c % 5.2 Calcium 9.3 D AST 18 ALT 20 C-Reactive Protein 0.32 Triglycerides 125 Cholesterol 148 LDL Cholesterol, Calc 78 HDL Cholesterol 45 25-OH Vitamin D Total 10.2 L TSH 0.76 Ur Specific [place] 1.020 Urine Protein Negative Urine Glucose (UA) Urine Blood 08/18/23 07:34 WBC Hgb Hct Plt Count ESR Sodium Potassium Creatinine Estimated GFR Fasting Glucose Hemoglobin A1c % Calcium AST ALT C-Reactive Protein Triglycerides Cholesterol LDL Cholesterol, Calc HDL Cholesterol 25-OH Vitamin D Total TSH Ur Specific [place] Urine Protein Urine Glucose (UA) Negative Urine Blood Negative Assessment and Plan Assessment & Plan (1) Annual physical exam: Code(s): Z00.00 - Encounter for general adult medical examination without abnormal findings Plan: Results of his labs done a few days ago reviewed and discussed with patient (2) Benign essential hypertension: Code(s): I10 - Essential (primary) hypertension Plan: Reinforced low sodium diet - goal is systolic BP of 120 mm or less Continue Losartan 50 mg QD (3) Hypertriglyceridemia: Code(s): E78.1 - Pure hyperglyceridemia Plan: Reinforced low cholesterol diet Continue Fenofibrate 160 mg QD Will recheck his labs and fasting lipids again in 3 months for follow up (4) Impaired fasting glucose: Code(s): R73.01 - Impaired fasting glucose Plan: FBS was elevated at 111 mg/dl on his previous labs but was at 99 mg/dl on his recent labs; HgbA1c was normal at 5.2% on his labs done a few days ago Reinforced low calorie/low carb diet (5) Migraine: Code(s): G43.909 - Migraine, unspecified, not intractable, without status migrainosus Qualifiers: Intractability: not intractable Migraine type: unspecified Status migrainosus presence: without status migrainosus Qualified Code(s): G43.909 - Migraine, unspecified, not intractable, without status migrainosus Plan: Appears controlled/stable - he was reportedly taken off both Topiramate and Fioricet by neurology a while back and he has not had any significant increase in his headaches since Follow up with neurology as scheduled (6) Vitamin D deficiency: Code(s): E55.9 - Vitamin D deficiency, unspecified Plan: Patient is advised that his Vitamin D level was very low on his recent labs Will start him on Vitamin D3 2000 units QD (7) Right ankle pain: Code(s): M25.571 - Pain in right ankle and joints of right foot Qualifiers: Chronicity: acute Qualified Code(s): M25.571 - Pain in right ankle and joints of right foot Plan: X-rays of the right ankle done back in July 2022 revealed (+) small calcaneal heel enthesophyte He was referred to podiatry previously for this issue - to follow up with podiatry as scheduled (8) Bilateral hand pain: Code(s): M79.641 - Pain in right hand; M79.642 - Pain in left hand Plan: X-rays of both hands done a few months ago revealed (+) OA changes in the right hand; left hand x-rays are normal Arthralgia work ups done a few months ago (MARY, RF, CRP, ESR) also came back normal EMG & NCV of both hands done back in March 2023 revealed (+) 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 and mild bilateral ulnar neuropathy across the cubital tunnel Have recommended that he can try wearing some wrist braces if he wants to try conservative management first but advised also of option of seeing orthopedics for consideration for carpal tunnel release surgery if his symptoms progress Continue Cyclobenzaprine 5 mg TID PRN (9) Low back pain: Code(s): M54.5 - Low back pain Qualifiers: Back pain laterality: midline Chronicity: unspecified Sciatica presence: without sciatica Qualified Code(s): M54.5 - Low back pain Plan: Reinforced activity and weight-lifting restrictions to avoid aggravating his low back pain X-rays of the lumbar spine done a few days ago revealed (+) multi-level lumbar Schmorl's node formation. The lumbar disc spaces are well-maintained and no acute fracture or spondylolisthesis is seen Continue Cyclobenzaprine PRN and Lidocaine 5% patches QD to his lower back PRN to help with his low back pain Will start him also on Gabapentin 100 mg TID (10) Depression: Code(s): F32.A - Depression, unspecified Qualifiers: Active/Remission status: currently active Depression Type: major depressive disorder Major depression episode severity: unspecified Major depression recurrence: recurrent Qualified Code(s): F33.9 - Major depressive disorder, recurrent, unspecified Plan: Continue Escitalopram 5 mg QD (11) Smoker: Code(s): F17.200 - Nicotine dependence, unspecified, uncomplicated Plan: Counseled again on smoking cessation (12) Overweight (BMI 25.0-29.9): Code(s): E66.3 - Overweight Plan: Reinforced diet/exercise as tolerated/lose weight (13) Colon cancer screening: Code(s): Z12.11 - Encounter for screening for malignant neoplasm of colon Plan: Will refer him to GI again for screening colonoscopy (14) Exposure to trichomonas: Code(s): Z20.2 - Contact with and (suspected) exposure to infections with a predominantly sexual mode of transmission Plan: Will start him empirically on Metronidazole 500 mg BID x 7days Plan Follow up in 3 months Orders: Orders Comprehensive Downing. Panel Fast 3 Months E78.00 - Pure hypercholesterolemia, unspecified Lipid Panel 3 Months E78.00 - Pure hypercholesterolemia, unspecified Referrals Gastroenterology Referral Z12.11 - Encounter for screening for malignant neoplasm of colon Medications: New cholecalciferol (vitamin D3) 50 mcg PO DAILY 90 caps 3RF 90 days E55.9 - Vitamin D deficiency, unspecified gabapentin 100 mg PO TID 90 caps 2RF metronidazole 500 mg PO BID 14 tabs 0RF 7 days Refilled fenofibrate 160 mg PO DAILY 90 tabs 1RF 90 days E78.1 - Pure hyperglyceridemia losartan 50 mg PO DAILY 90 tabs 1RF 90 days Coding Level of Care Code Est Pt Prev Care 40-64y(65610) Diagnoses Annual physical exam Z00.00 Benign essential hypertension I10 Hypertriglyceridemia E78.1 Impaired fasting glucose R73.01 Migraine without status migrainosus, not intractable, unspecified migraine type G43.909 Intractability: not intractable Migraine type: unspecified Status migrainosus presence: without status migrainosus Vitamin D deficiency E55.9 Acute right ankle pain M25.571 Chronicity: acute Bilateral hand pain M79.641; M79.642 Midline low back pain without sciatica, unspecified chronicity M54.5 Back pain laterality: midline Chronicity: unspecified Sciatica presence: without sciatica Episode of recurrent major depressive disorder, unspecified depression episode severity F33.9 Active/Remission status: currently active Depression Type: major depressive disorder Major depression episode severity: unspecified Major depression recurrence: recurrent Smoker F17.200 Overweight (BMI 25.0-29.9) E66.3 Colon cancer screening Z12.11 Exposure to trichomonas Z20.2
== END 2023-08-22 14:18 | disposition home or self-care (01) ==
PROVIDERS: PCP Internal Medicine; Visit Provider Internal Medicine
DX: Z00.00 Encounter for general adult medical examination without abnormal findings (principal); I10 Essential (primary) hypertension; E78.1 Pure hyperglyceridemia; R73.01 Impaired fasting glucose; G43.909 Migraine, unspecified, not intractable, without status migrainosus; E55.9 Vitamin D deficiency, unspecified; M25.571 Pain in right ankle and joints of right foot; M79.641 Pain in right hand; M79.642 Pain in left hand; M54.50 Low back pain, unspecified; F33.9 Major depressive disorder, recurrent, unspecified; F17.200 Nicotine dependence, unspecified, uncomplicated
CPT/HCPCS: 99396

== ENCOUNTER 2023-11-22 12:32 | Outpatient (AMB) | payer OTHER, SELFPAY ==
[2023-11-22 12:37] VITALS: BP 126/88; PULSE 67; O2SAT 97; BMI 30.3
--- NOTE | 2023-11-22 12:37 | A.OFFPC_ITS ---
Vital Signs 11/22/23 12:37 Height 5 ft 8 in Weight 199 lb 4 oz BMI 30.3 BP 126/88 Blood Pressure Location Lt brachial Position Sitting Pulse 67 Pulse Source Pulse Oximeter Pulse Oximetry (%) 97 Oxygen Delivery Method Room Air Intake Visit Reasons: HTN, hyperlipidemia, low back pain Director Of Valuation Required: No Accompanied by: Self / Same As Patient Allergies tizanidine [TIZANIDINE] Allergy (Severe, Verified 11/22/23 13:21) FACIAL SWELLING, angioedema gabapentin Adverse Reaction (Intermediate, Uncoded 11/22/23 13:22) recurrent cough Medication List - Last Reconciled 11/22/23 by Kalia Varghese MD blood pressure monitor As directed blood pressure test kit-large (Self-Taking Blood Pressure kit) As directed cholecalciferol (vitamin D3) 50 mcg PO DAILY 90 days cyclobenzaprine 5 mg PO TID PRN 30 days escitalopram oxalate 5 mg PO DAILY 90 days fenofibrate 160 mg PO DAILY 90 days lidocaine 5% 1 patch topical DAILY losartan 50 mg PO DAILY 90 days Tobacco use date assessed: 11/22/23 Dental Screening Dental Screen Date: 11/22/23 Did you have a dental visit in the last 12 months?: No Did you have a dental problem in the last 6 months where you did not have access to dental care?: No Was dental information given to patient?: No HPI HTN, hyperlipidemia, low back pain HPI Details Patient comes in today for his follow up visit States that he continues to experience increased pain over his lower back Could not tolerate Gabapentin - states that he was coughing a lot when he was on the Rx He denies any headaches or dizziness Denies any chest pains, no increased SOB No nausea/vomiting, no abdominal pain No change in bowel habits noted He did not get his follow up labs done prior to his visit today Adds that he finished his Metronidazole Rx a few months ago for his Trichomonas exposure Feels that he has some mild urethral irritation at times but denies any penile discharge, urinary frequency or dysuria - is not sure if he needs to take any more Abx at this time States that he was contacted by GI a few weeks ago for his colonoscopy referral - was reportedly advised that they will call him back to schedule his appt but he has not yet heard back from them so far [facility] Medical History Vitamin D deficiency Overweight (BMI 25.0-29.9) Depression Lateral epicondylitis, right elbow Obesity (BMI 30-39.9) Smoker Low back pain Migraine Benign essential hypertension Surgical History History of surgery on arm History of arthroscopy of right shoulder Family History Father Medical history unknown Mother Hypertension Diabetes Social History Housing: Apartment Alcohol intake: current Alcohol intake frequency: a few times a month Alcohol type: beer Patient Tobacco Use Status: Current everyday Tobacco user Tobacco use type: Cigarette Cigarettes Per Day: 15 Years Smoked: 30 +/- e-Cigarette/Vaping Use: Never Used Second Hand Smoke Exposure: No service: No Current occupational status: employed Cognitive needs: No Hearing needs: No Vision needs: No Questionnaire PHQ-9 Over the last 2 weeks, how often have you been bothered by any of the following problems? 1. Little interest or pleasure in doing things: not at all 2. Feeling down, depressed, or hopeless: not at all 3. Trouble falling or staying asleep, or sleeping too much: not at all 4. Feeling tired or having little energy: not at all 5. Poor appetite or overeating: not at all 6. Feeling bad about yourself - or that you are a failure or have let yourself or your family down: not at all 7. Trouble concentrating on things, such as reading the newspaper or watching television: not at all 8. Moving or speaking so slowly that other people could have noticed. Or the opposite - being so fidgety or restless that you have been moving around a lot more than usual: not at all 9. Thoughts that you would be better off or of hurting yourself in some way: not at all Total score: 0 Depression Screening Interpretation: Negative (is on Rx) Depression Screening Done: Yes 87411 - PHQ-9 Billing: Yes Source: Developed by Drs. Elmer Elkins, Regine Sharma, Carson Lopez and colleagues, with an educational erich from [employer]. Thrive Questionnaire Date Thrive assessed: 11/22/23 I am a: Patient What is your living situation today?: I have a steady place to live Within the past 12 months, did the food you bought not last and you didn't have the money to get more?: Never true Within the past 12 months, did you worry whether your food would run out before you got money to buy more?: Never true Do you have trouble paying for medicines?: No Do you have trouble getting transportation to medical appointments?: No Do you have trouble paying your heating and electricity bill?: No Do you have trouble taking care of your child, family member or friend?: No Do you have trouble with day-to-day activities such as bathing, preparing meals, shopping, managing finances, etc.?: No Are you currently unemployed and looking for a job?: No Are you interested in more education?: No Please select the resources that you would like help with: None Currently or been in a relationship where the following occur: no concerns repor lis THRIVE Score: 0 AUDIT C Alcohol Use Questionnaire (AUDIT-C) 1. How often do you have a drink containing alcohol?: 2-4 times a month 3. How often do you have six or more drinks on one occasion?: Never Total Score: 2 Score Reviewed/Action Taken: Yes RYAN-7 AMB Questionnaire RYAN-7 Date RYAN - 7 assessed: 11/22/23 Feeling nervous, anxious, or on edge: 0 = Not at all Not being able to stop or control worryin = Not at all Worrying too much about different things: 0 = Not at all Trouble relaxin = Not at all Being so restless that it is hard to sit still: 0 = Not at all Becoming easily annoyed or irritable: 0 = Not at all Feeling afraid as if something awful might happen: 0 = Not at all Total RYAN-7 score (0-4 normal; 5-9 mild; 10-14 moderate; 15-21 severe): 0 Source: Developed by Drs. Elmer Elkins, Regine Sharma, Carson Lopez and colleagues, with an educational erich from [employer]. Review of Systems Const Denies chills, Reports fatigue, Denies fever(s) and Denies headache(s) ENT Denies dysphagia, Denies dizziness, Denies otalgia, Denies headache(s), Denies neck pain, Denies odynophagia and Denies sore throat Card Denies chest pain, Denies palpitations and Denies dyspnea Resp Denies cough, Denies dyspnea and Denies wheezing GI Denies abdominal pain, Denies constipation, Denies dysphagia, Denies heartburn, Denies diarrhea, Denies nausea, Denies odynophagia and Denies vomiting Denies dysuria, Denies nocturia and Denies urinary frequency Musc Reports back pain (increased, over the lower back), Reports arthralgias (on and off in the right ankle, right heel/foot and both hands), Denies joint swelling and Denies neck pain Skin/Breast Denies rash Neuro Denies dizziness and Denies headache(s) Psych Reports depression (controlled on his current Rx) Endo Reports fatigue and Denies palpitations Aller/Immun Denies wheezing Physical exam (Primary Care) Vital Signs: Last Vital Signs Pulse 67 11/22/23 12:37 BP 126/88 11/22/23 12:37 Pulse Ox 97 11/22/23 12:37 Oxygen Delivery Method Room Air 11/22/23 12:37 BMI result Body Mass Index 30.3 Tobacco/Smoking Status: Tobacco use Status Tobacco use date assessed 11/22/23 11/22/23 12:38 Patient Tobacco Use Status Current everyday Tobacco 11/22/23 12:38 Tobacco use type Cigarette 11/22/23 12:38 e-Cigarette/Vaping Use Never Used 11/22/23 12:38 PHQ-9: PHQ-9 Score PHQ-9: Total score 0 11/22/23 12:38 Depression Screening Interpretation: Negative (is on Rx) Thrive Assessment: Date of Thrive Assessment Date Thrive assessed 11/22/23 11/22/23 12:38 Currently or been in a relationship where the following occur: no concerns reported Const General: no acute distress and alert HENMT Ears: TM's normal bilaterally and EAC's normal Throat: Yes posterior oropharynx normal and Yes tonsils normal (no TP congestion) Neck Neck: Yes no lymphadenopathy and Yes supple Thyroid: Thyroid normal Resp Auscultation: clear to auscultation bilaterally, no rales and no wheezes Cardio Rate: regular rate Rhythm: regular rhythm Heart sounds: no murmurs GI Palpation (GI): Soft to palpation and nontender Auscultation: normal bowel sounds General: Yes no CVA tenderness Back/Spine/Pelvis Back: no CVA tenderness Thoracic/Lumbar Spine: lumbar spinal tenderness Skin Rashes: no rashes Extrem General: Yes no clubbing, cyanosis or edema Assessment and Plan Assessment & Plan (1) Hypertriglyceridemia: Code(s): E78.1 - Pure hyperglyceridemia Plan: Patient did not get his follow up labs done prior to his appt today Reinforced low cholesterol diet Continue Fenofibrate 160 mg QD Will recheck his labs and fasting lipids again in 3 months for follow up - will just have patient use his updated lab orders for his next lab draw in a few months (2) Benign essential hypertension: Code(s): I10 - Essential (primary) hypertension Plan: Reinforced low sodium diet - goal is systolic BP of 120 mm or less Continue Losartan 50 mg QD (3) Impaired fasting glucose: Code(s): R73.01 - Impaired fasting glucose Plan: His HgbA1c was normal at 5.2% on his recent labs done a few months ago Reinforced low calorie/low carb diet (4) Migraine: Code(s): G43.909 - Migraine, unspecified, not intractable, without status migrainosus Qualifiers: Migraine type: unspecified Status migrainosus presence: without status migrainosus Intractability: not intractable Qualified Code(s): G43.909 - Migraine, unspecified, not intractable, without status migrainosus Plan: Appears controlled/stable - he was reportedly taken off both Topiramate and Fioricet by neurology a while back and he has not had any significant increase in his headaches since Follow up with neurology as scheduled (5) Vitamin D deficiency: Code(s): E55.9 - Vitamin D deficiency, unspecified Plan: Continue Vitamin D3 2000 units QD Will recheck his Vitamin D level in a few months for follow up (6) Right ankle pain: Code(s): M25.571 - Pain in right ankle and joints of right foot Qualifiers: Chronicity: acute Qualified Code(s): M25.571 - Pain in right ankle and joints of right foot Plan: X-rays of the right ankle done back in July 2022 revealed (+) small calcaneal heel enthesophyte Follow up with podiatry as scheduled (7) Bilateral hand pain: Code(s): M79.641 - Pain in right hand; M79.642 - Pain in left hand Plan: X-rays of both hands done a few months ago revealed (+) OA changes in the right hand; left hand x-rays are normal Arthralgia work ups done a few months ago (MARY, RF, CRP, ESR) also came back normal EMG & NCV of both hands done back in March 2023 revealed (+) 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 and mild bilateral ul lea neuropathy across the cubital tunnel Have recommended that he can try wearing some wrist braces if he wants to try conservative management first but advised also of option of seeing orthopedics for consideration for carpal tunnel release surgery if his symptoms progress Continue Cyclobenzaprine 5 mg TID PRN (8) Low back pain: Code(s): M54.5 - Low back pain Qualifiers: Chronicity: unspecified Back pain laterality: midline Sciatica presence: without sciatica Qualified Code(s): M54.5 - Low back pain Plan: Reinforced activity and weight-lifting restrictions to avoid aggravating his low back pain X-rays of the lumbar spine done a few days ago revealed (+) multi-level lumbar Schmorl's node formation. The lumbar disc spaces are well-maintained and no acute fracture or spondylolisthesis is seen Continue Cyclobenzaprine PRN and Lidocaine 5% patches QD to his lower back PRN to help with his low back pain He was previously started on Gabapentin 100 mg TID but he stopped the Rx due to side effects (increased coughing) Will refer him for now to physical therapy for further evaluation and management of his low back pain (9) Depression: Code(s): F32.A - Depression, unspecified Qualifiers: Depression Type: major depressive disorder Major depression recurrence: recurrent Active/Remission status: currently active Major depression episode severity: unspecified Qualified Code(s): F33.9 - Major depressive disorder, recurrent, unspecified Plan: Continue Escitalopram 5 mg QD (10) Smoker: Code(s): F17.200 - Nicotine dependence, unspecified, uncomplicated Plan: Counseled again on smoking cessation (11) Overweight (BMI 25.0-29.9): Code(s): E66.3 - Overweight Plan: Reinforced diet/exercise as tolerated/lose weight Plan Follow up in 3 months Orders: Orders PT Evaluation and Treatment Today M51.47 - Schmorl's nodes, lumbosacral region, M54.5 - Low back pain Vitamin D 25-OH Total 02/17/24 E55.9 - Vitamin D deficiency, unspecified Complete Blood Count Auto Diff 02/17/24 D64.9 - Anemia, unspecified UA CC w/rflx Micro + Cult 02/17/24 R30.0 - Dysuria TSH reflex Free T4 02/17/24 E78.00 - Pure hypercholesterolemia, unspecified Coding Level of Care Code Est Pt Level 4 (26788) Diagnoses Hypertriglyceridemia E78.1 Benign essential hypertension I10 Impaired fasting glucose R73.01 Migraine without status migrainosus, not intractable, unspecified migraine type G43.909 Migraine type: unspecified Status migrainosus presence: without status migrainosus Intractability: not intractable Vitamin D deficiency E55.9 Acute right ankle pain M25.571 Chronicity: acute Bilateral hand pain M79.641; M79.642 Midline low back pain without sciatica, unspecified chronicity M54.5 Chronicity: unspecified Back pain laterality: midline Sciatica presence: without sciatica Episode of recurrent major depressive disorder, unspecified depression episode severity F33.9 Depression Type: major depressive disorder Major depression recurrence: recurrent Active/Remission status: currently active Major depression episode severity: unspecified Smoker F17.200 Overweight (BMI 25.0-29.9) E66.3
== END 2023-11-22 13:29 | disposition home or self-care (01) ==
PROVIDERS: PCP Internal Medicine; Visit Provider Internal Medicine
DX: E78.1 Pure hyperglyceridemia (principal); I10 Essential (primary) hypertension; F33.9 Major depressive disorder, recurrent, unspecified; R73.01 Impaired fasting glucose; G43.909 Migraine, unspecified, not intractable, without status migrainosus; E55.9 Vitamin D deficiency, unspecified; M25.571 Pain in right ankle and joints of right foot; M79.641 Pain in right hand; M79.642 Pain in left hand; M54.50 Low back pain, unspecified; F17.200 Nicotine dependence, unspecified, uncomplicated; E66.3 Overweight
CPT/HCPCS: 99214

== ENCOUNTER 2024-01-15 10:00 | Outpatient (RCR) | payer OTHER, SELFPAY ==
--- NOTE | 2023-12-29 12:34 | MHC.PT.EP ---
[facility] [place] [facility] [place] [facility] [place] Office [address] Reagan Meza [address] [phone] F: [phone] F: [phone] F: [phone] F: [phone] Physical Therapy Plan of Care Date of Evaluation: 12/27/23 Date of Surgery: Diagnosis: Schmorl's nodes, lumbosacral region Assessment: Pt is a pleasant 53yo M who presents to PT with chronic low back pain, R>L. He reports intermittent radicular symptoms into RLE. Pt presents to PT with current impairments in pain, decreased lumbar ROM, soft tissue restrictions, decreased hip/glute strength, and impaired posture. He is limited functionally by bending, prolonged sitting, sitting>standing, prolonged standing, walking, and sleeping. He is a good candidate for skilled PT in order to address current impairments to facilitate return to PLOF. He is recommended to be seen 2x/week for 4 weeks and will be reassessed at that time Frequency and Duration: The patient will be seen 2x/week for 4 weeks Short Term Goals: Pt will be I with HEP to promote self management of symptoms Pt will improve lumbar flexion by at least 25% Pill Machine Operator Goals: Pt will demonstrate ability to squat and brain picker object from the floor with proper mechanics Pt will perform sit<>stand transfers from varying surfaces with minimal to no discomfort Pt will ambulate at least 100' independently with improved arm swing with pain < 4/10 Treatment Plan: Modalities to reduce pain, spasms and effusion. Manual therapy to restore motion and function. Therapeutic exercise to improve strength and flexibility. Neuromuscular re-education for posture and balance. Therapeutic activities to return to functional activities of daily living. Electronically signed by: Nikki Pepe, PT, DPT Please sign and return to therapist. Thank you for your referral.
--- NOTE | 2024-01-24 08:28 | MHC.PT.DC ---
[facility] [place] Office [place] [facility] [place] [facility] [address] Reagan Meza [address] [phone] F: [phone] F: [phone] F: [phone] F: [phone] Physical Therapy Discharge Report Diagnosis: Schmorl's nodes, lumbosacral region Date of Surgery: Date of Evaluation: 12/27/23 Date of Discharge: 01/24/24 Treatments to Date: 4 Cancellations to Date: 1 No Shows to Date: 3 Discharge Status: Visit Non-compliance Discharge Summary: Pt was seen for PT from 12/27/23-01/15/24. He has had multiple no-show appointments since SOC. He is being from skilled PT per [facility] [place] policy and visit non-compliance. Pt current level of function unknown at this time Electronically signed by: Nikki Pepe, PT, DPT Please sign and return to therapist. Thank you for your referral.
== END 2024-01-24 08:26 | disposition home or self-care (01) ==
LOC: HO.PT 10:00
PROVIDERS: PCP Internal Medicine; Visit Provider Internal Medicine
DX: M51.47 Schmorl's nodes, lumbosacral region (principal)
CPT/HCPCS: 97110; 97140; 97162

== ENCOUNTER 2024-03-07 10:57 | Outpatient (AMB) | payer OTHER, SELFPAY ==
[2024-03-07 10:59] VITALS: BP 130/86; PULSE 71; O2SAT 98; BMI 31.2
--- NOTE | 2024-03-07 10:59 | MHC.PC.OV ---
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 Required: No Allergies tizanidine [TIZANIDINE] Allergy (Severe, Verified 03/07/24 11:38) FACIAL SWELLING, angioedema gabapentin Adverse Reaction (Intermediate, Uncoded 03/07/24 11:38) recurrent cough Medication List - Last Reconciled 03/07/24 by Kalia Varghese MD blood pressure monitor As directed blood pressure test kit-large (Self-Taking Blood Pressure kit) As directed cholecalciferol (vitamin D3) 50 mcg PO DAILY 90 days cyclobenzaprine 5 mg PO TID PRN 30 days escitalopram oxalate 5 mg PO DAILY 90 days fenofibrate 160 mg PO DAILY 90 days lidocaine 5% 1 patch topical DAILY losartan 50 mg PO DAILY 90 days Tobacco use date assessed: 03/07/24 Dental Screening Dental Screen Date: 03/07/24 Did you have a dental visit in the last 12 months?: Yes Did you have a dental problem in the last 6 months where you did not have access to dental care?: No HPI 3mth f/u HPI Details Patient comes in today for his follow up visit States that he feels okay but continues to experience increased pain over his lower back He was going to physical therapy at [facility] but was discharged last month supposedly for multiple no-shows Is requesting for a referral to a different physical therapy facility and also for some Rx to help with his low back pain - is currently taking only Cyclobenzaprine, which he states does not help much He denies any headaches or dizziness Denies any chest pains, no SOB No nausea/vomiting, no abdominal pain No change in bowel habits noted He has not gotten his follow up labs done recently yet - states that he forgot to get them done as he has been in too much pain everyday lately [facility] Medical History Vitamin D deficiency Overweight (BMI 25.0-29.9) Depression Lateral epicondylitis, right elbow Obesity (BMI 30-39.9) Smoker Low back pain Migraine Benign essential hypertension Surgical History History of surgery on arm History of arthroscopy of right shoulder Family History Father Medical history unknown Mother Hypertension Diabetes Social History Housing: Apartment Alcohol intake: current Alcohol intake frequency: a few times a month Alcohol type: beer Patient Tobacco Use Status: Current everyday Tobacco user Tobacco use type: Cigarette Cigarettes Per Day: 15 Years Smoked: 30 +/- e-Cigarette/Vaping Use: Never Used Second Hand Smoke Exposure: No service: No Current occupational status: employed Cognitive needs: No Hearing needs: No Vision needs: No Questionnaire PHQ-9 Over the last 2 weeks, how often have you been bothered by any of the following problems? 1. Little interest or pleasure in doing things: not at all 2. Feeling down, depressed, or hopeless: not at all 3. Trouble falling or staying asleep, or sleeping too much: not at all 4. Feeling tired or having little energy: not at all 5. Poor appetite or overeating: not at all 6. Feeling bad about yourself - or that you are a failure or have let yourself or your family down: not at all 7. Trouble concentrating on things, such as reading the newspaper or watching television: not at all 8. Moving or speaking so slowly that other people could have noticed. Or the opposite - being so fidgety or restless that you have been moving around a lot more than usual: not at all 9. Thoughts that you would be better off or of hurting yourself in some way: not at all Total score: 0 Depression Screening Interpretation: Negative (is on Rx) Depression Screening Done: Yes [id number] - PHQ-9 Billing: Yes Source: Developed by Drs. Elmer Elkins, Regine Sharma, Carson Lopez and colleagues, with an educational erich from [employer]. Thrive Questionnaire Date Thrive assessed: 03/07/24 I am a: Patient What is your living situation today?: I have a steady place to live Within the past 12 months, did the food you bought not last and you didn't have the money to get more?: Never true Within the past 12 months, did you worry whether your food would run out before you got money to buy more?: Never true Do you have trouble paying for medicines?: No Do you have trouble getting transportation to medical appointments?: No Do you have trouble paying your heating and electricity bill?: No Do you have trouble taking care of your child, family member or friend?: No Do you have trouble with day-to-day activities such as bathing, preparing meals, shopping, managing finances, etc.?: No Are you currently unemployed and looking for a job?: No Are you interested in more education?: No Please select the resources that you would like help with: None Currently or been in a relationship where the following occur: no concerns reported THRIVE Score: 0 AUDIT C Alcohol Use Questionnaire (AUDIT-C) 1. How often do you have a drink containing alcohol?: 2-4 times a month 3. How often do you have six or more drinks on one occasion?: Never Total Score: 2 Score Reviewed/Action Taken: Yes RYAN-7 AMB Questionnaire RYAN-7 Date RYAN - 7 assessed: 11/22/23 Feeling nervous, anxious, or on edge: 0 = Not at all Not being able to stop or control worryin = Not at all Worrying too much about different things: 0 = Not at all Trouble relaxin = Not at all Being so restless that it is hard to sit still: 0 = Not at all Becoming easily annoyed or irritable: 0 = Not at all Feeling afraid as if something awful might happen: 0 = Not at all Total RYAN-7 score (0-4 normal; 5-9 mild; 10-14 moderate; 15-21 severe): 0 Source: Developed by Drs. Elmer Elkins, Regine Sharma, Carson Lopez and colleagues, with an educational erich from [employer]. Review of Systems Const Denies chills, Reports fatigue, Denies fever(s) and Denies headache(s) ENT Denies dysphagia, Denies dizziness, Denies otalgia, Denies headache(s), Denies neck pain, Denies odynophagia and Denies sore throat Card Denies chest pain, Denies palpitations and Denies dyspnea Resp Denies cough, Denies dyspnea and Denies wheezing GI Denies abdominal pain, Denies constipation, Denies dysphagia, Denies heartburn, Denies diarrhea, Denies nausea, Denies odynophagia and Denies vomiting Denies dysuria, Denies nocturia and Denies urinary frequency Musc Reports back pain (increased, over the lower back), Reports arthralgias (on and off in the right ankle, right heel/foot, both hands & shoulders ), Denies joint swelling and Denies neck pain Skin/Breast Denies rash Neuro Denies dizziness and Denies headache(s) Psych Reports depression (controlled on his current Rx) Endo Reports fatigue and Denies palpitations Aller/Immun Denies wheezing Physical exam (Primary Care) Vital Signs: Last Vital Signs Pulse 71 03/07/24 10:59 BP 130/86 03/07/24 10:59 Pulse Ox 98 03/07/24 10:59 Oxygen Delivery Method Room Air 03/07/24 10:59 BMI result Body Mass Index 31.2 Tobacco/Smoking Status: Tobacco use Status Tobacco use date assessed 03/07/24 03/07/24 10:59 Patient Tobacco Use Status Current everyday Tobacco 03/07/24 10:59 Tobacco use type Cigarette 03/07/24 10:59 e-Cigarette/Vaping Use Never Used 03/07/24 10:59 PHQ-9: PHQ-9 Score PHQ-9: Total score 0 03/07/24 11:14 Depression Screening Interpretation: Negative (is on Rx) Thrive Assessment: Date of Thrive Assessment Date Thrive assessed 11/22/23 03/07/24 10:59 Currently or been in a relationship where the following occur: no concerns reported Const General: no acute distress and alert HENMT Ears: TM's normal bilaterally and EAC's normal Throat: Yes posterior oropharynx normal and Yes tonsils normal (no TP congestion) Neck Neck: Yes no lymphadenopathy and Yes supple Thyroid: Thyroid normal Resp Auscultation: clear to auscultation bilaterally, no rales and no wheezes Cardio Rate: regular rate Rhythm: regular rhythm Heart sounds: no murmurs GI Palpation (GI): Soft to palpation and nontender Auscultation: normal bowel sounds General: Yes no CVA tenderness Back/Spine/Pelvis Back: no CVA tenderness Thoracic/Lumbar Spine: lumbar spinal tenderness Skin Rashes: no rashes Extrem General: Yes no clubbing, cyanosis or edema Assessment and Plan Assessment & Plan (1) Hypertriglyceridemia: Code(s): E78.1 - Pure hyperglyceridemia Plan: Patient did not get his follow up labs done prior to his appt today - states that he will try to get them done tomorrow morning Reinforced low cholesterol diet Continue Fenofibrate 160 mg QD Will recheck his labs and fasting lipids again in 4 months for follow up (2) Benign essential hypertension: Code(s): I10 - Essential (primary) hypertension Plan: Reinforced low sodium diet - goal is systolic BP of 120 mm or less Continue Losartan 50 mg QD (3) Impaired fasting glucose: Code(s): R73.01 - Impaired fasting glucose Plan: His HgbA1c was normal at 5.2% on his most recent labs done last year Reinforced low calorie/low carb diet (4) Migraine: Code(s): G43.909 - Migraine, unspecified, not intractable, without status migrainosus Qualifiers: Migraine type: unspecified Status migrainosus presence: without status migrainosus Intractability: not intractable Qualified Code(s): G43.909 - Migraine, unspecified, not intractable, without status migrainosus Plan: Appears controlled/stable - he was reportedly taken off both Topiramate and Fioricet by neurology a while back and he has not had any significant increase in his headaches since Follow up with neurology as scheduled (5) Vitamin D deficiency: Code(s): E55.9 - Vitamin D deficiency, unspecified Plan: Continue Vitamin D3 2000 units QD (6) Right ankle pain: Code(s): M25.571 - Pain in right ankle and joints of right foot Qualifiers: Chronicity: acute Qualified Code(s): M25.571 - Pain in right ankle and joints of right foot Plan: X-rays of the right ankle done back in July 2022 revealed (+) small calcaneal heel enthesophyte Follow up with podiatry as scheduled (7) Bilateral hand pain: Code(s): M79.641 - Pain in right hand; M79.642 - Pain in left hand Plan: X-rays of both hands done last year revealed (+) OA changes in the right hand; left hand x-rays are normal Arthralgia work ups done last year (MARY, RF, CRP, ESR) also came back normal EMG & NCV of both hands done back in March 2023 revealed (+) 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 and mild bilateral ulnar neuropathy across the cubital tunnel Have recommended that he try wearing some wrist braces and to try conservative management first but advised also of option of seeing orthopedics for consideration for carpal tunnel release surgery if his symptoms progress (8) Low back pain: Code(s): M54.5 - Low back pain Qualifiers: Chronicity: unspecified Back pain laterality: midline Sciatica presence: without sciatica Qualified Code(s): M54.5 - Low back pain Plan: Reinforced activity and weight-lifting restrictions to avoid aggravating his low back pain X-rays of the lumbar spine done last year revealed (+) multi-level lumbar Schmorl's node formation. The lumbar disc spaces are well-maintained and no acute fracture or spondylolisthesis is seen Continue Lidocaine 5% patches QD to his lower back PRN to help with his low back pain He was previously started on Gabapentin 100 mg TID but he stopped the Rx due to side effects (increased coughing) He was also on Cyclobenzaprine but felt that this was not helping He was referred to and going to PT at [facility] [place] but was discharged last month supposedly for multiple no-shows Will refer him for now to physical therapy at [facility] for further management of his low back pain Will start him as well on Nabumetone 750 mg BID with food PRN and Methocarbamol 750 mg TID PRN; will D/C Cyclobenzaprine (9) Depression: Code(s): F32.A - Depression, unspecified Qualifiers: Depression Type: major depressive disorder Major depression recurrence: recurrent Active/Remission status: currently active Major depression episode severity: unspecified Qualified Code(s): F33.9 - Major depressive disorder, recurrent, unspecified Plan: Continue Escitalopram 5 mg QD (10) Smoker: Code(s): F17.200 - Nicotine dependence, unspecified, uncomplicated Plan: Counseled again on smoking cessation (11) Obesity (BMI 30-39.9): Code(s): E66.9 - Obesity, unspecified Plan: Reinforced diet/exercise as tolerated/lose weight Plan Follow up in 4 months Orders: Orders Comprehensive Tracy. Panel Fast 4 Months E78.00 - Pure hypercholesterolemia, unspecified Lipid Panel 4 Months E78.00 - Pure hypercholesterolemia, unspecified Referrals Physical Medicine and Rehabilitation Referral M51.47 - Schmorl's nodes, lumbosacral region, M54.5 - Low back pain Medications: New nabumetone 750 mg PO BID PRN 60 tabs 0RF pain methocarbamol 750 mg PO TID PRN 90 tabs 0RF low back pain Discontinued cyclobenzaprine Discontinued Reason: Doctor's Order 5 mg PO TID 30 days PRN 90 tabs 1RF low back pain M54.5 - Low back pain Coding Level of Care Code Est Pt Level 4 (97788) Diagnoses Hypertriglyceridemia E78.1 Benign essential hypertension I10 Impaired fasting glucose R73.01 Migraine without status migrainosus, not intractable, unspecified migraine type G43.909 Migraine type: unspecified Status migrainosus presence: without status migrainosus Intractability: not intractable Vitamin D deficiency E55.9 Acute right ankle pain M25.571 Chronicity: acute Bilateral hand pain M79.641; M79.642 Midline low back pain without sciatica, unspecified chronicity M54.5 Chronicity: unspecified Back pain laterality: midline Sciatica presence: without sciatica Episode of recurrent major depressive disorder, unspecified depression episode severity F33.9 Depression Type: major depressive disorder Major depression recurrence: recurrent Active/Remission status: currently active Major depression episode severity: unspecified Smoker F17.200 Obesity (BMI 30-39.9) E66.9
== END 2024-03-07 11:54 | disposition home or self-care (01) ==
PROVIDERS: PCP Internal Medicine; Visit Provider Internal Medicine
DX: E78.1 Pure hyperglyceridemia (principal); I10 Essential (primary) hypertension; F33.9 Major depressive disorder, recurrent, unspecified; R73.01 Impaired fasting glucose; G43.909 Migraine, unspecified, not intractable, without status migrainosus; E55.9 Vitamin D deficiency, unspecified; M25.571 Pain in right ankle and joints of right foot; M79.641 Pain in right hand; M79.642 Pain in left hand; M54.50 Low back pain, unspecified; F17.200 Nicotine dependence, unspecified, uncomplicated; E66.9 Obesity, unspecified
CPT/HCPCS: 99214

== ENCOUNTER 2024-03-08 08:03 | Outpatient (REF) | payer OTHER, SELFPAY ==
[2024-03-08 08:19] LABS: MANUAL DIFF FLAG NO
[2024-03-08 09:03] LABS: Basophils Absolute Auto 0.1 X10*3/uL (0.0-0.2); Basophils Percent Auto 1.3 % (0-2); Eosinophils Absolute Auto 0.6 X10*3/uL (0.0-0.4); Hemoglobin 13.9 g/dl (14.0-18.0); Imm Gran Abs Auto 0.04 X10*3/uL (0.00-0.03); Imm Gran Pct Auto 0.5 % (0.0-0.4); Lymphocytes Absolute Auto 3.9 X10*3/uL (1.2-4.9); Lymphocytes Percent Auto 49.1 % (20-40); Mean Corpuscular HGB Conc 35.6 g/dl (31.0-36.0); Mean Corpuscular Volume 87.1 fL (80.0-98.0); Mean Platelet Volume 11.2 fL (9.4-12.4); Monocytes Absolute Auto 0.5 X10*3/uL (0.1-1.2); Monocytes Percent Auto 6.3 % (2-11); Neutrophils Absolute Auto 2.8 x10*3/uL (2.0-8.3); Neutrophils Percent Auto 35.8 % (45-73); Platelet Count 310 X10*3/uL (160-400); Red Blood Count 4.48 X10*6/uL (4.60-5.80); Red Cell Distribution Width 12.6 % (11.0-16.0); White Blood Count 7.9 X10*3/uL (4.8-10.8)
[2024-03-08 09:41] LABS: Appearance Urine Clear; Color Urine Yellow; Glucose Urine UA Negative (Negative); Leukocyte Esterase Urine Negative (Negative); Nitrite Urine Negative (Negative); PH 5.5 (5.0-9.0); Specific Gravity - Urine 1.025 (1.005-1.025); Urine Blood Negative (Negative); Urine Ketones Negative (Negative); Urine Protein Negative (Neg-Trace)
[2024-03-08 10:06] LABS: Alanine Aminotransferase 23 U/L (0-40); Albumin Level 4.3 g/dL (3.5-5.0); Alkaline Phosphatase 69 U/L (39-117); Anion Gap 13 (12-20); Aspartate Amino Transferase 22 U/L (5-37); Bilirubin Total 0.4 mg/dL (0.0-1.0); Blood Urea Nitrogen 12 mg/dL (9-16); Calcium 9.4 mg/dL (8.4-10.2); Carbon Dioxide 22 mmol/L (22-29); Chloride 110 mmol/L (96-108); Cholesterol 154 mg/dL (<200); Estimated Glomerular Filt Rate > 60; Glucose Fasting 102 mg/dL (60-99); HDL Cholesterol 38 mg/dL (>40); LDL Cholesterol Calculated 61 mg/dL (<100); Potassium 3.8 mmol/L (3.3-5.1); Sodium 141 mmol/L (135-145); Total Protein 7.1 g/dL (6.5-8.0); Triglycerides 279 mg/dL (<150)
[2024-03-08 10:08] LABS: TSH reflex Free T4 0.85 uIU/mL (0.32-4.0)
== END 2024-03-08 08:04 | disposition home or self-care (01) ==
LOC: HO.LAB 08:03
PROVIDERS: PCP Internal Medicine; Visit Provider Internal Medicine
DX: E78.00 Pure hypercholesterolemia, unspecified (principal); E55.9 Vitamin D deficiency, unspecified; R30.0 Dysuria; D64.9 Anemia, unspecified
CPT/HCPCS: 36415; 80053; 80061; 81003; 82306; 84443; 85025

== ENCOUNTER 2024-05-30 12:43 | Outpatient (AMB) | payer OTHER, SELFPAY ==
--- NOTE | 2024-05-30 12:43 | MHC.OFFVIS ---
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 Hx of Right Shoulder Arthroscopy w/ RTC Repair 10/30/2019. 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 Hx of Right Shoulder Arthroscopy w/ RTC Repair 10/30/2019. He states he woke up a couple of months ago with pain and has pain in the subdeltoid distribution with overhead activity and at night. He also describes pain all over his body. [facility] Medical History Vitamin D deficiency Overweight (BMI 25.0-29.9) Depression Lateral epicondylitis, right elbow Obesity (BMI 30-39.9) Smoker Low back pain Migraine Benign essential hypertension Surgical History History of surgery on arm History of arthroscopy of right shoulder Family History Father Medical history unknown Mother Hypertension Diabetes Social History Housing: Apartment Alcohol intake: current Alcohol intake frequency: a few times a month Alcohol type: beer Patient Tobacco Use Status: Current everyday Tobacco user Tobacco use type: Cigarette Cigarettes Per Day: 15 Years Smoked: 30 +/- e-Cigarette/Vaping Use: Never Used Second Hand Smoke Exposure: No service: No Current occupational status: employed Cognitive needs: No Hearing needs: No Vision needs: No Physical Exam Extrem Other: Positive lift-off but complicated by pain. Negative empty can positive Quinn and Bala. Assessment & Plan Assessment & Plan (1) History of rotator cuff surgery: Code(s): Z98.890 - Other specified postprocedural states Category: Surgical Plan: This is a 53-year-old gentleman with a 4-1/2 year history of a subscapularis repair. I am not worried about his subscapularis as much as IM his shoulder inflammation. I recommend physical therapy. He can see me after he is done. (2) Right shoulder pain: Code(s): M25.511 - Pain in right shoulder Category: Medical Plan: Orders: Orders PT Evaluation and Treatment Today M25.511 - Pain in right shoulder, Z98.890 - Other specified postprocedural states Coding Level of Care Code New Pt Level 3 (82654) Diagnoses History of rotator cuff surgery Z98.890 Right shoulder pain M25.511
== END 2024-05-30 14:36 | disposition home or self-care (01) ==
PROVIDERS: PCP Internal Medicine; Visit Provider Orthopaedic Surgery
DX: M25.511 Pain in right shoulder (principal)
CPT/HCPCS: 99203

== ENCOUNTER → 2024-05-30 12:43 | Outpatient (BNVA) | payer OTHER, SELFPAY | PROVIDERS: PCP Internal Medicine; Visit Provider Orthopaedic Surgery | DX: M25.511 Pain in right shoulder (principal); Z98.890 Other specified postprocedural states | CPT/HCPCS: 99202 ==

== ENCOUNTER 2024-08-29 08:48 | Outpatient (AMB) | payer OTHER, SELFPAY ==
[2024-08-29 09:00] VITALS: BP 110/82; PULSE 62; O2SAT 96; BMI 32.5
--- NOTE | 2024-08-29 09:00 | A.OFFPC_ITS ---
Vital Signs 08/29/24 09:00 Height 5 ft 8 in Weight 213 lb 8 oz BMI 32.5 BP 110/82 Blood Pressure Location Lt brachial Position Sitting Pulse 62 Pulse Source Pulse Oximeter Pulse Oximetry (%) 96 Oxygen Delivery Method Room Air Intake Visit Reasons: ANNUAL Ramp Agent Required: No Accompanied by: Self / Same As Patient Allergies tizanidine [TIZANIDINE] Allergy (Severe, Verified 08/29/24 09:17) FACIAL SWELLING, angioedema gabapentin Adverse Reaction (Intermediate, Uncoded 08/29/24 09:17) recurrent cough Medication List - Last Reconciled 08/29/24 by Kalia Varghese MD blood pressure monitor As directed blood pressure test kit-large (Self-Taking Blood Pressure kit) As directed cholecalciferol (vitamin D3) 50 mcg PO DAILY 90 days escitalopram oxalate 5 mg PO DAILY 90 days fenofibrate 160 mg PO DAILY 90 days ibuprofen 800 mg PO TID PRN lidocaine 5% 1 patch topical DAILY losartan 50 mg PO DAILY 90 days methocarbamol 750 mg PO TID PRN [RIGHT HAND BRACE As directed] [RIGHT SHOULDER BRACE As directed] Tobacco use date assessed: 08/29/24 Dental Screening Dental Screen Date: 08/29/24 Did you have a dental visit in the last 12 months?: Yes Did you have a dental problem in the last 6 months where you did not have access to dental care?: No Was dental information given to patient?: Patient has dentist HPI ANNUAL HPI Details Patient comes in today for his annual physical examination States that he feels okay He is still experiencing increased pain (chronic) over his lower back with frequent radiation of pain down both legs, with the symptoms slightly worse on the left side He continues to follow up with [facility] for his chronic low back pain and just had what is likely a trial of nerve block a couple of days ago and also possible radiofrequency ablation with Dr. Cuello in the near future He denies any headaches or dizziness Denies any chest pains, no SOB No nausea/vomiting, no abdominal pain No change in bowel habits noted Denies any acute urinary symptoms He was not able to get his follow up labs done prior to his appointment today He alsol never went for his colonoscopy after he was previously referred - states that he was in too much pain to be able to go through with his colonoscopy and he does not wish to pursue it at this time ON LICENSE OF [facility] Medical History (Updated 08/30/24 @ 04:35 by Kalia Varghese MD) Osteoarthritis of right hand Lumbar degenerative disc disease Vitamin D deficiency Depression Lateral epicondylitis, right elbow Obesity (BMI 30-39.9) Smoker Migraine Benign essential hypertension Surgical History History of surgery on arm History of arthroscopy of right shoulder Family History Father Medical history unknown Mother Hypertension Diabetes Social History Housing: Apartment Alcohol intake: current Alcohol intake frequency: a few times a month Alcohol type: beer Patient Tobacco Use Status: Current everyday Tobacco user Tobacco use type: Cigarette Cigarettes Per Day: 15 Years Smoked: 30 +/- e-Cigarette/Vaping Use: Never Used Second Hand Smoke Exposure: No service: No Current occupational status: employed Cognitive needs: No Hearing needs: No Vision needs: No Questionnaire PHQ-9 Over the last 2 weeks, how often have you been bothered by any of the following problems? 1. Little interest or pleasure in doing things: not at all 2. Feeling down, depressed, or hopeless: not at all 3. Trouble falling or staying asleep, or sleeping too much: not at all 4. Feeling tired or having little energy: nearly every day 5. Poor appetite or overeating: not at all 6. Feeling bad about yourself - or that you are a failure or have let yourself or your family down: not at all 7. Trouble concentrating on things, such as reading the newspaper or watching television: not at all 8. Moving or speaking so slowly that other people could have noticed. Or the opposite - being so fidgety or restless that you have been moving around a lot more than usual: not at all 9. Thoughts that you would be better off or of hurting yourself in some way: not at all Total score: 3 Depression Screening Interpretation: Positive Depression Screening Follow-up: Existing condition and In treatment Depression Screening Done: Yes 30889 - PHQ-9 Billing: Yes Source: Developed by Drs. Elmer Elkins, Carson Mcgarryke and colleagues, with an educational erich from [employer]. Thrive Questionnaire Date Thrive assessed: 08/29/24 I am a: Patient What is your living situation today?: I choose not to answer this question Within the past 12 months, did the food you bought not last and you didn't have the money to get more?: I choose not to answer this question Within the past 12 months, did you worry whether your food would run out before you got money to buy more?: I choose not to answer this question Do you have trouble paying for medicines?: I choose not to answer this question Do you have trouble getting transportation to medical appointments?: I choose not to answer this question Do you have trouble paying your heating and electricity bill?: I choose not to answer this question Do you have trouble taking care of your child, family member or friend?: I choose not to answer this question Do you have trouble with day-to-day activities such as bathing, preparing meals, shopping, managing finances, etc.?: I choose not to answer this question Are you currently unemployed and looking for a job?: I choose not to answer this question Are you interested in more education?: I choose not to answer this question Please select the resources that you would like help with: None Currently or been in a relationship where the following occur: I choose not to answer THRIVE Score: 0 AUDIT C Alcohol Use Questionnaire (AUDIT-C) 1. How often do you have a drink containing alcohol?: 2-4 times a month 2. How many drinks containing alcohol do you have on a typical day when you are drinking?: 1 or 2 3. How often do you have six or more drinks on one occasion?: Never Total Score: 2 Score Reviewed/Action Taken: Yes RYAN-7 AMB Questionnaire RYAN-7 Date RYAN - 7 assessed: 08/29/24 Feeling nervous, anxious, or on edge: 0 = Not at all Not being able to stop or control worryin = Not at all Worrying too much about different things: 0 = Not at all Trouble relaxin = Not at all Being so restless that it is hard to sit still: 0 = Not at all Becoming easily annoyed or irritable: 0 = Not at all Feeling afraid as if something awful might happen: 0 = Not at all Total RYAN-7 score (0-4 normal; 5-9 mild; 10-14 moderate; 15-21 severe): 0 Source: Developed by Drs. Elmer Elkins, Regine Sharma, Carson Lopez and colleagues, with an educational erich from [employer]. Review of Systems Const Denies chills, Reports fatigue, Denies fever(s), Denies headache(s), Denies malaise and Denies weakness Eyes Denies blurry vision, Denies change in vision, Denies irritation and Denies itchy eyes ENT Denies dysphagia, Denies dizziness, Denies headache(s), Denies neck pain and Denies odynophagia Card Denies chest pain, Denies rapid heart rate, Denies irregular heart rhythm, Denies palpitations and Denies dyspnea Resp Denies chest congestion, Denies cough and Denies dyspnea GI Denies abdominal pain, Denies bloating, Denies constipation, Denies dysphagia, Denies heartburn, Denies diarrhea, Denies nausea, Denies odynophagia and Denies vomiting Denies hematuria, Denies difficulty urinating, Denies dysuria, Denies urinary frequency and Denies urinary urgency Musc Reports back pain (increased, over the lower back), Reports arthralgias (on and off in the right ankle, right heel/foot, both hands & shoulders ), Denies joint swelling and Denies neck pain Skin/Breast Denies change in pigmentation, Denies lesions, Denies rash and Denies unusual bruising Neuro Denies dizziness, Denies headache(s), Denies paresthesias and Denies weakness Psych Reports depression (controlled on his current Rx) Endo Reports fatigue and Denies palpitations Aller/Immun Denies itchy eyes Physical exam (Primary Care) Vital Signs: Last Vital Signs Pulse 62 08/29/24 09:00 BP 110/82 08/29/24 09:00 Pulse Ox 96 08/29/24 09:00 Oxygen Delivery Method Room Air 08/29/24 09:00 BMI result Body Mass Index 32.5 Tobacco/Smoking Status: Tobacco use Status Tobacco use date assessed 08/29/24 08/29/24 09:04 Patient Tobacco Use Status Current everyday Tobacco 08/29/24 09:04 Tobacco use type Cigarette 08/29/24 09:04 e-Cigarette/Vaping Use Never Used 08/29/24 09:04 PHQ-9: PHQ-9 Score PHQ-9: Total score 3 08/29/24 11:05 Depression Screening Interpretation: Positive Depression Screening Follow-up: Existing condition and In treatment Thrive Assessment: Date of Thrive Assessment Date Thrive assessed 08/29/24 08/29/24 09:04 Currently or been in a relationship where the following occur: I choose not to answer Const General: no acute distress, alert and awake Orientation/consciousness: patient oriented x3 HENMT Head: Yes normocephalic and Yes atraumatic Ears: external ears normal, TM's normal bilaterally and EAC's normal General nose exam: No nasal discharge present Face and sinus: Yes normal facial exam and Yes sinuses nontender Teeth and gingiva: dentition normal Throat: Yes posterior oropharynx normal and Yes tonsils normal (no TP congestion) Eyes Eyelids: Yes eyelids normal Conjunctivae: conjunctivae normal Pupils: Equal, round and reactive pupils present EOM: EOMs intact bilaterally Neck Neck: Yes no lymphadenopathy and Yes supple Thyroid: Thyroid normal Resp Auscultation: clear to auscultation bilaterally, no rales and no wheezes Cardio Rate: regular rate Rhythm: regular rhythm Heart sounds: no murmurs GI Palpation (GI): Soft to palpation, nontender and No hepatosplenomegaly present Auscultation: normal bowel sounds General: Yes no CVA tenderness Back/Spine/Pelvis Back: no CVA tenderness Thoracic/Lumbar Spine: lumbar spinal tenderness and straight leg raise positive left Skin Lesions: no lesions Rashes: no rashes Neuro General: patient oriented x3, moves all extremities, no focal motor deficits and CN's II-XI intact bilaterally Cranial nerves: Yes Equal, round and reactive pupils present Cognition (Neuro): normal cognition Gait exam (Neuro): Normal gait present Extrem General: Yes no clubbing, cyanosis or edema Coding Level of Care Code Est Pt Prev Care 40-64y(86287) Diagnoses Annual physical exam Z00.00 Hypertriglyceridemia E78.1 Benign essential hypertension I10 Impaired fasting glucose R73.01 Migraine without status migrainosus, not intractable, unspecified migraine type G43.909 Migraine type: unspecified Status migrainosus presence: without status migrainosus Intractability: not intractable Vitamin D deficiency E55.9 Degeneration of intervertebral disc of lumbar region with discogenic back pain and lower extremity pain M51.362 Disc-related pain type: discogenic back pain and lower extremity pain Primary osteoarthritis of right hand M19.041 Osteoarthritis type: primary Episode of recurrent major depressive disorder, unspecified depression episode severity F33.9 Depression Type: major depressive disorder Major depression recurrence: recurrent Active/Remission status: currently active Major depression episode severity: unspecified Smoker F17.200 Obesity (BMI 30-39.9) E66.9 Colon cancer screening Z12.11 Additional Codes PHQ-9 - 62725 - PHQ-9 Billing: Yes ([id number]) Assessment & Plan Assessment & Plan (1) Annual physical exam: Code(s): Z00.00 - Encounter for general adult medical examination without abnormal findings Category: Medical Plan: Check labs He has not yet had his screening colonoscopy done - states that he was and is still in too much pain to go for his colonoscopy and does not wish to pursue it at this time (2) Hypertriglyceridemia: Code(s): E78.1 - Pure hyperglyceridemia Category: Medical Plan: Will have patient recheck his fasting lipids DIANNE Reinforced low cholesterol diet Continue Fenofibrate 160 mg QD Will recheck his labs and fasting lipids again in 4 months for follow up (3) Benign essential hypertension: Code(s): I10 - Essential (primary) hypertension Category: Medical Plan: Reinforced low sodium diet - goal is systolic BP of 120 mm or less Continue Losartan 50 mg QD (4) Impaired fasting glucose: Code(s): R73.01 - Impaired fasting glucose Category: Medical Plan: His HgbA1c was normal at 5.2% when last checked in August 2023 Reinforced low calorie/low carb diet Will recheck his FBS for follow up (5) Migraine: Code(s): G43.909 - Migraine, unspecified, not intractable, without status migrainosus Category: Medical Qualifiers: Migraine type: unspecified Status migrainosus presence: without status migrainosus Intractability: not intractable Qualified Code(s): G43.909 - Migraine, unspecified, not intractable, without status migrainosus Plan: Appears controlled/stable - he was taken off both Topiramate and Fioricet by neurology a while back and he has not had any significant increase in his headaches since Follow up with neurology as scheduled (6) Vitamin D deficiency: Code(s): E55.9 - Vitamin D deficiency, unspecified Category: Medical Plan: Continue Vitamin D3 2000 units QD Will recheck his Vitamin D level for follow up (7) Lumbar degenerative disc disease: Comment: Symptoms radiate posteriorly down both lower extremities to the feet but are slightly worse on the left side; reports occasional feelings of weakness in both legs Code(s): M51.369 - Other intervertebral disc degeneration, lumbar region without mention of lumbar back pain or lower extremity pain Category: Medical Qualifiers: Disc-related pain type: discogenic back pain and lower extremity pain Qualified Code(s): M51.362 - Other intervertebral disc degeneration, lumbar region with discogenic back pain and lower extremity pain Plan: Reinforced activity and weight-lifting restrictions to avoid aggravating his low back pain X-rays of the lumbar spine done last year (August 2023) revealed (+) multi- level lumbar Schmorl's node formation. The lumbar disc spaces are well- maintained and no acute fracture or spondylolisthesis is seen He reportedly had an MRI of the lumbar spine done with [facility] more recently that revealed a disc bulge and left anterior disc herniation at L5-S1 with mild to moderate left foraminal narrowing He apparently also had a lumbar interlaminar injection which did not help He has tried physical therapy a few months ago without improvement He was previously tried on Gabapentin 100 mg TID but he stopped the Rx due to side effects (increased coughing) He has also tried Cyclobenzaprine but felt that this did not help He is currently on Pregabalin 75 mg BID prescribed by [facility] Continue Lidocaine 5% patches QD to his lower back PRN for pain, Methocarbamol 750 mg TID and Ibuprofen 800 mg TID but he states that the medications barely help States that he just had some procedure done with [facility], likely medial branch block, just a couple of days ago - states that he has not experienced any relief yet but it might be too early to tell [facility] has also mentioned the possibility that they may try him on a radiofrequency procedure Follow-up with [facility] as scheduled (8) Osteoarthritis of right hand: Code(s): M19.041 - Primary osteoarthritis, right hand Category: Medical Qualifiers: Osteoarthritis type: primary Qualified Code(s): M19.041 - Primary osteoarthritis, right hand Plan: X-rays of both hands done last year (2022) revealed (+) OA changes in the right hand; left hand x-rays are normal Arthralgia work ups done last year (MARY, RF, CRP, ESR) also came back normal EMG & NCV of both hands done back in March 2023 revealed (+) 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9 - Major depressive disorder, recurrent, unspecified Plan: Continue Escitalopram 5 mg QD (10) Smoker: Code(s): F17.200 - Nicotine dependence, unspecified, uncomplicated Category: Social Hx Plan: Patient is counseled again on smoking cessation (11) Obesity (BMI 30-39.9): Code(s): E66.9 - Obesity, unspecified Category: Medical Plan: Reinforced diet; exercise and weight loss are not practical at present due to his increased low back pain (12) Colon cancer screening: Code(s): Z12.11 - Encounter for screening for malignant neoplasm of colon Category: Medical Plan: We have referred patient to GI for screening colonoscopy in the past but he did not go through with this due to his increasing low back pain over the past year or so States that he does not wish to pursue this at present due to his low back pain He agrees to get Cologuard testing at least for now - Cologuard ordered Plan Follow up in 4 months Orders: Orders Complete Blood Count Auto Diff 08/29/24 D64.9 - Anemia, unspecified, Z00.00 - Encounter for general adult medical examination without abnormal findings Comprehensive [place]. Panel Fast 08/29/24 E78.00 - Pure hypercholesterolemia, unspecified, Z00.00 - Encounter for general adult medical examination without abnormal findings TSH reflex Free T4 08/29/24 E78.00 - Pure hypercholesterolemia, unspecified, Z00.00 - Encounter for general adult medical examination without abnormal findings Lipid Panel 08/29/24 E78.00 - Pure hypercholesterolemia, unspecified, Z00.00 - Encounter for general adult medical examination without abnormal findings UA CC w/rflx Micro + Cult 08/29/24 R30.0 - Dysuria, Z00.00 - Encounter for general adult medical examination without abnormal findings Vitamin D 25-OH Total 08/29/24 E55.9 - Vitamin D deficiency, unspecified, Z00.00 - Encounter for general adult medical examination without abnormal findings Prostate Specific Antigen Scr 08/29/24 Z00.00 - Encounter for general adult medical examination without abnormal findings Comprehensive [place]. Panel Fast 4 Months E78.00 - Pure hypercholesterolemia, unspecified Lipid Panel 4 Months E78.00 - Pure hypercholesterolemia, unspecified Referrals Cologuard Test Z12.11 - Encounter for screening for malignant neoplasm of colon
== END 2024-08-29 09:42 | disposition home or self-care (01) ==
PROVIDERS: PCP Internal Medicine; Visit Provider Internal Medicine
DX: Z00.00 Encounter for general adult medical examination without abnormal findings (principal); F33.9 Major depressive disorder, recurrent, unspecified; E66.9 Obesity, unspecified; Z68.32 Body mass index [BMI] 32.0-32.9, adult; E78.1 Pure hyperglyceridemia; I10 Essential (primary) hypertension; R73.01 Impaired fasting glucose; G43.909 Migraine, unspecified, not intractable, without status migrainosus; E55.9 Vitamin D deficiency, unspecified; M51.362 Other intervertebral disc degeneration, lumbar region with discogenic back pain and lower extremity pain; M19.041 Primary osteoarthritis, right hand; F17.200 Nicotine dependence, unspecified, uncomplicated

== ENCOUNTER → 2024-08-29 08:48 | Outpatient (BNVA) | payer OTHER, SELFPAY | PROVIDERS: PCP Internal Medicine; Visit Provider Internal Medicine | DX: Z00.00 Encounter for general adult medical examination without abnormal findings (principal); E78.1 Pure hyperglyceridemia; I10 Essential (primary) hypertension; R73.01 Impaired fasting glucose; G43.909 Migraine, unspecified, not intractable, without status migrainosus; E55.9 Vitamin D deficiency, unspecified; M51.362 Other intervertebral disc degeneration, lumbar region with discogenic back pain and lower extremity pain; M19.041 Primary osteoarthritis, right hand; F33.9 Major depressive disorder, recurrent, unspecified; E66.9 Obesity, unspecified; F17.200 Nicotine dependence, unspecified, uncomplicated; Z71.6 Tobacco abuse counseling | CPT/HCPCS: 96127; 99396 ==

== ENCOUNTER 2024-09-19 09:05 | Emergency (ER) | payer OTHER, SELFPAY ==
--- NOTE | ~2024-09-19 | XR_ITS ---
EXAMINATION: XR LUMBOSACRAL SPINE.] Right hip CLINICAL INFORMATION: fall. fracture? COMPARISON: Lumbar spine 08/18/2023 TECHNIQUE: Three views of the lumbosacral spine.. Right hip and AP pelvis 3 views. FINDINGS: Lumbar spine: The vertebral bodies and posterior elements are normal. The disc spaces are preserved and the vertebral alignment is normal. There are mild superior endplate Schmorl's node L5, L4 and L3 vertebra. No lytic process seen. SI joints are symmetrical. The paraspinal soft tissues are normal. XR/XR hip RT min 2V w/wo pel IMPRESSION: Mild superior endplate deformities at L3, L4 and L5 are stable. Small Schmorl's node are stable. No acute fracture, listhesis or lytic process seen. Electronically signed by: Rhett Cisse MD 09/19/2024 10:50 AM EST
--- NOTE | ~2024-09-19 | XR_ITS ---
EXAMINATION: XR LUMBOSACRAL SPINE.] Right hip CLINICAL INFORMATION: fall. fracture? COMPARISON: Lumbar spine 08/18/2023 TECHNIQUE: Three views of the lumbosacral spine.. Right hip and AP pelvis 3 views. FINDINGS: Lumbar spine: The vertebral bodies and posterior elements are normal. The disc spaces are preserved and the vertebral alignment is normal. There are mild superior endplate Schmorl's node L5, L4 and L3 vertebra. No lytic process seen. SI joints are symmetrical. The paraspinal soft tissues are normal. XR/XR lumbar spine 2-3V IMPRESSION: Mild superior endplate deformities at L3, L4 and L5 are stable. Small Schmorl's node are stable. No acute fracture, listhesis or lytic process seen. Electronically signed by: Rhett Cisse MD 09/19/2024 10:50 AM JORDAN
[2024-09-19 09:19] VITALS: BP 162/88; PULSE 68; RESP 16; TEMP 37; O2SAT 98; BMI 21.3
--- NOTE | 2024-09-19 10:26 | ED.GENADULT ---
HPI - General Adult General Chief complaint: Back Pain/Injury Stated complaint: back pain Time Seen by Provider: 09/19/24 09:29 Source: patient Mode of arrival: ambulatory Limitations: no limitations History of Present Illness ED Provider: Zacarias Velasquez PA-C HPI narrative: 54-year-old male presents to ED for low back pain onto back on . Patient slipped down 3 steps and fell directly onto back. Patient denies hitting head or loss of consciousness. Patient denies any vomiting, rectal bleeding, blood in urine, coughing up blood, chest pain, shortness of breath, headache, or dizziness since for all. Patient denies any urinary/bowel incontinence. Patient denies any history of IV drug use. Patient denies any abdominal pain. Related Data Previous Rx's ?Medication ?Instructions ?Recorded blood pressure test kit-large #1 ea 12/01/20 (Self-Taking Blood Pressure kit) cholecalciferol (vitamin D3) 50 50 mcg PO DAILY 90 days #90 caps 08/22/23 mcg (2,000 unit) capsule fenofibrate 160 mg tablet 160 mg PO DAILY 90 days #90 tabs 08/22/23 blood pressure monitor #1 ea 09/08/23 methocarbamol 750 mg tablet 750 mg PO TID PRN low back pain 03/07/24 #90 tabs lidocaine 5 % topical patch 1 patch topical DAILY #30 ea 06/03/24 RIGHT HAND BRACE #1 ea 06/04/24 RIGHT SHOULDER BRACE #1 ea 06/19/24 losartan 50 mg tablet 50 mg PO DAILY 90 days #90 tabs 08/02/24 ibuprofen 800 mg tablet 800 mg PO TID PRN pain #90 tabs 08/18/24 escitalopram oxalate 5 mg tablet 5 mg PO DAILY 90 days #90 tabs 09/02/24 ketorolac 10 mg tablet 10 mg PO Q6H PRN pain 5 days #20 09/19/24 tabs Allergies Allergy/AdvReac Type Severity Reaction Status Date / Time tizanidine [TIZANIDINE] Allergy Severe FACIAL Verified 09/19/24 09:22 SWELLING, angioedema gabapentin AdvReac Intermediate recurrent Uncoded 09/19/24 09:22 cough Review of Systems Review of Systems: Back pain Yes all other systems are reviewed and are negative PMFSH Past Medical History Medical History (Updated 01/02/25 @ 12:22 by JAS Espino) Osteoarthritis of right hand Lumbar degenerative disc disease Vitamin D deficiency Depression Lateral epicondylitis, right elbow Obesity (BMI 30-39.9) Smoker Migraine Benign essential hypertension Surgical History History of surgery on arm History of arthroscopy of right shoulder Family History Family History Father Medical history unknown Mother Hypertension Diabetes Social History Social History Housing: Apartment Alcohol intake: current Alcohol intake frequency: a few times a month Alcohol type: beer Patient Tobacco Use Status: Current everyday Tobacco user Tobacco use type: Cigarette Cigarettes Per Day: 15 Years Smoked: 30 +/- e-Cigarette/Vaping Use: Never Used Second Hand Smoke Exposure: No service: No Current occupational status: employed Cognitive needs: No Hearing needs: No Vision needs: No Physical Exam ED Vital Signs: Vital Signs - 24 hr 09/19/24 09:19 09/19/24 12:37 09/19/24 13:17 Temperature 98.6 F 98.8 F 98.8 F Pulse Rate 68 69 69 Respiratory Rate 16 14 14 Blood Pressure 162/88 H 116/68 116/68 Pulse Oximetry 98 96 96 Oxygen Delivery Method Room Air Room Air Room Air BMI result Body Mass Index 21.3 Const General: cooperative, healthy appearing, comfortable, no acute distress, well developed, alert, awake and Physically active Orientation/consciousness: patient oriented x3 HENMT Head: Yes normal to inspection, Yes No palpable skull fracture present, Yes normocephalic and Yes atraumatic Ears: hearing grossly normal bilaterally, external ears normal, TM's normal bilaterally, TM normal on the right, TM normal on the left, EAC's normal, mastoids normal and no periauricular adenopathy Eyes General: appearance normal, both eyes and all related structures Neck Neck: Yes normal visual inspection, Yes full ROM, Yes no lymphadenopathy, Yes no meningeal signs, Yes trachea midline, Yes supple, No anterior neck swelling and No tender Chest Chest palpation & inspection: normal inspection of the chest and normal palpation of entire chest wall Resp Effort & Inspection: normal respiratory effort and able to speak in complete sentences Auscultation: clear to auscultation bilaterally Cardio Jugular venous distension: no JVD Heart sounds: S1 normal heart sound present and S2 normal heart sound present GI Inspection: Yes normal to inspection Palpation (GI): Soft to palpation, not firm, nontender, no guarding and not rigid General: Yes no CVA tenderness Back/Spine/Pelvis Back: no CVA tenderness and back tenderness (lumbar spine tenderness) Skin General skin exam: no rashes or lesions noted, elasticity normal and turgor normal Neuro General: patient oriented x3, gait normal, tone normal, moves all extremities, Normal light touch and pain sensation, no meningeal signs, no focal motor deficits, CN's II-XI intact bilaterally and normal sensation to monofilament Extrem General: Yes normal to inspection and Yes full ROM Upper/lower leg/hip images: 1. Positive for ecchymosis without any fluctuance, or hardness mass/swelling. Mild tenderness on palpation. Rest of extremity normal. Motor/neuro/vascular exam intact. Negative for erythema. negative for any external internal rotation of lower extremity. Psych Appearance: grossly normal, well kempt and not disheveled Medications Administered Discontinued Medications Generic Name Dose Route Start Last Admin Trade Name Freq PRN Reason Stop Dose Admin Ketorolac Tromethamine 30 mg 09/19/24 10:31 09/19/24 10:52 Ketorolac Tromethamine 30 Mg/Ml Vial IM 09/19/24 10:32 30 mg ONCE ONE Administration Medical Decision Making Medical Decision Making [facility] Narrative: 54-year-old male presents to ED for back right hip pain cysts fall on Daryn. Patient denies any fever, chills, urinary/bowel incontinence, numbness/tingling of extremities or genitals. Patient denies any abdominal pain, chest pain, shortness of breath, or fever or chills. Patient is sent for hip and lumbar x-ray. 13:17pm: Lumbar spine x-ray shows Schmori nodess. HIp xrays are normal. Not suspecting kidney stones, cauda equinus syndrome, epidural abscess, UTI, osteomyelitis, hematoma, brain bleed, cervical spine fracture, any life threatening etiology or any chest intra-abdominal emergent etiology. Patient explained worrisome signs and informed to return to the ED immediately. Patient states feeling better after receiving pain meds in the ED. Differential Diagnosis Differential Diagnoses: The differential diagnosis associated with the presentation includes (Fracture, dislocation,) Admission/Observation Consideration of admission/observation: Escalation of care including admission/observation considered Independent Interpretation I performed an independent interpretation of an: Plain X-Ray Radiology Impression Discussion of test interpretation with radiology: I have reviewed the radiologist's reading. Independent Historian Clinical information obtained from an independent historian. History obtained from or confirmed by: Other (Patient) External Record Review External record reviewed: Other (Prior visits) Discharge Plan Discharge Clinical Impression: Back pain, Contusion Patient Disposition: Home, Self-Care Instructions: Contusion in Adults (ED), Back Pain (ED), Hip Pain (ED) Additional Instructions: Recommend follow-up with primary care provider. Return to the ED immediately for any urinary/bowel incontinence, bloody urine, blood in stool, fever, chills, severe back pain, nausea, vomiting, worsening bluish black discoloration, redness, or any other concerning symptoms. Do not take any other NSAIDs while taking ketorolac. FINDINGS: Lumbar spine: The vertebral bodies and posterior elements are normal. The disc spaces are preserved and the vertebral alignment is normal. There are mild superior endplate Schmorl's node L5, L4 and L3 vertebra. No lytic process seen. SI joints are symmetrical. The paraspinal soft tissues are normal. XR/XR lumbar spine 2-3V IMPRESSION: Mild superior endplate deformities at L3, L4 and L5 are stable. Small Schmorl's node are stable. No acute fracture, listhesis or lytic process seen. Electronically signed by: Rhett Cisse MD 09/19/2024 10:50 AM Similar Pages EXAMINATION: Right hip 2 views and AP pelvis one view. CLINICAL INDICATION: Pain. COMPARISON: None. FINDINGS: AP pelvis: There is normal symmetry of bilateral hip joints and SI joints. No fracture, lytic or sclerotic process visualized in the pelvis. AP and frog-leg views right hip reveals normal joint space. No fracture, dislocation or loose bodies. The soft tissues are normal. IMPRESSION: Normal AP pelvis and right hip. Electronically signed by: Rhett Cisse MD 09/19/2024 12:06 PM Similar Pages Prescriptions: New ketorolac 10 mg tablet 10 mg PO Q6H PRN (Reason: pain) 5 Days Qty: 20 0RF Rx Instructions: Received 30 mg IM in the ED No Action (DME) blood pressure test kit-large [Self-Taking Blood Pressure] Kit See Rx Instructions .ROUTE .MEDSUPPLY Qty: 1 0RF Rx Instructions: As directed (DME) blood pressure monitor Kit See Rx Instructions .ROUTE .MEDSUPPLY Qty: 1 0RF Rx Instructions: As directed lidocaine 5 % adhesive patch,medicated 1 patch topical DAILY Qty: 30 0RF Rx Instructions: leave on most painful area for up to 12 hrs (DME) RIGHT HAND BRACE See Rx Instructions .Route .MEDSUPPLY Qty: 1 0RF Rx Instructions: As directed (DME) RIGHT SHOULDER BRACE See Rx Instructions .Route .MEDSUPPLY Qty: 1 0RF Rx Instructions: As directed losartan 50 mg tablet 50 mg PO DAILY 90 Days Qty: 90 1RF ibuprofen 800 mg tablet 800 mg PO TID PRN (Reason: pain) Qty: 90 0RF Rx Instructions: Take with food as needed escitalopram oxalate 5 mg tablet 5 mg PO DAILY 90 Days Qty: 90 1RF fenofibrate 160 mg tablet 160 mg PO DAILY 90 Days Qty: 90 1RF cholecalciferol (vitamin D3) 50 mcg (2,000 unit) capsule 50 mcg PO DAILY 90 Days Qty: 90 3RF methocarbamol 750 mg tablet 750 mg PO TID PRN (Reason: low back pain) Qty: 90 0RF Stand Alone Forms: Work/School Release Interventions: ED Discharge Assessment Last Done: 09/19/24 13:17 Discharge Date/Time: 09/19/24 13:17 Print Language: Uruguayan
[2024-09-19] MEDS: Ketorolac Tromethamine 30 MG/ML VIAL IM (10:52)
[2024-09-19 12:37] VITALS: BP 116/68; PULSE 69; RESP 14; TEMP 37.1; O2SAT 96
[2024-09-19 13:17] VITALS: BP 116/68; PULSE 69; RESP 14; TEMP 37.1; O2SAT 96
== END 2024-09-19 13:17 | disposition home or self-care (01) ==
PROVIDERS: Emergency Provider Emergency Medicine; PCP Internal Medicine
DX: S30.0XXA Contusion of lower back and pelvis, initial encounter (principal); M25.551 Pain in right hip; M54.50 Low back pain, unspecified; W10.9XXA Fall (on) (from) unspecified stairs and steps, initial encounter; Y93.89 Activity, other specified; Y92.89 Other specified places as the place of occurrence of the external cause; Y99.8 Other external cause status; Z79.899 Other long term (current) drug therapy
CPT/HCPCS: 72100; 73502; 96372; 99284; J1885

== ENCOUNTER → 2024-09-19 09:55 | Outpatient (BNV) | payer OTHER, SELFPAY | PROVIDERS: Emergency Provider Emergency Medicine; PCP Internal Medicine; Visit Provider Radiology Diagnostic Radiology | DX: M25.551 Pain in right hip (principal); M54.50 Low back pain, unspecified; W19.XXXA Unspecified fall, initial encounter | CPT/HCPCS: 72100; 73502 ==

== ENCOUNTER 2024-10-07 09:42 | Outpatient (AMB) | payer OTHER, SELFPAY ==
--- NOTE | 2024-10-07 09:53 | A.SPINEOV_ITS ---
Vital Signs 10/07/24 09:55 Height 5 ft 11 in Weight 213 lb BMI 29.7 Intake Visit Reasons: LBP Intake Note: Mr. Rush is here today c/o Severe low back pain. 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 Required: No Allergies tizanidine [TIZANIDINE] Allergy (Severe, Verified 10/07/24 10:24) FACIAL SWELLING, angioedema gabapentin Adverse Reaction (Intermediate, Uncoded 09/19/24 09:22) recurrent cough Physical Exam Vital Signs: BMI result Body Mass Index 29.7 Assessment & Plan Assessment & Plan (1) Lumbar degenerative disc disease: Comment: Symptoms radiate posteriorly down both lower extremities to the feet but are slightly worse on the left side; reports occasional feelings of weakness in both legs Code(s): M51.369 - Other intervertebral disc degeneration, lumbar region without mention of lumbar back pain or lower extremity pain Category: Medical Qualifiers: Disc-related pain type: discogenic back pain and lower extremity pain Qualified Code(s): M51.362 - Other intervertebral disc degeneration, lumbar region with discogenic back pain and lower extremity pain Plan Dear Dr Ceullo, Thank you for referring Mr Rush to our office today. He is a very nice 54 year old male who has had back pain for 15 years. 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 He was laying on his side at the time and was stuck there for a quite a while. Eventually people came and got the van off him but since that time, his back has never quite felt right. His back pain encompasses his whole low back. It can be present even when he is at rest or in the evenings at nighttime. It is aggravated with activity. Occasionally he will have radicular pains down his legs. More recently about a month ago or so he fell again and this minor trauma seems to aggravate it. He was taking a muscle relaxer and that helped out a little bit. He has tried things like Tylenol, Motrin, chiropr actic. He also underwent some injections at your office but they did not help him much at all. He comes in today with an MRI at [place] showing some degenerative changes at L5-S1. PMH: He is reasonably healthy, history of hypertension, high cholesterol, carpal tunnel release, biceps tendon repair and rotator cuff repair. Social hx: She smokes a few cigarettes a day, occasional alcohol and occasional marijuana Medications: Vitamin D3, escitalopram, fenofibrate, ibuprofen, losartan, methocarbamol Allergies: None Physical exam: Awake alert oriented no acute distress, is limited range of motion of his hips secondary to pain but no motor weakness. Reflexes slightly reduced at the patella, normal at the ankles. Imaging review: There lumbar x-rays at [place] as well as lumbar MRI done at [place] and this shows normal alignment, there is mild disc degeneration throughout his lumbar spine, there is a small left anterior disc bulge at the L5-S1 level. There is no evidence of any overt nerve compression even though the radiology report suggests there could be mild to moderate foraminal narrowing. There are spotty areas of Modic endplate changes. Impression: 54-year-old male who had van land on top of him when he was working underneath it who has had back pain since that time 15 years ago. I reviewed his MRI with him, and explained to him that his overall disk quality and alignment is reasonably good. I thiink most of his pain is traumatic and there were injuries to the soft tissues, and surrounding paraspinal structures at that time the van fell on him and these will not respond to spinal fusion surgery. This makes me think he is likely dealing with a chronic situation that I do not think we can help. Thank you for allowing us to care for your patient. The total time spent with this visit with this patient was 45 minutes reviewing history, physical exam, lumbar imaging review, and implementation of treatment plan or further diagnostic testing Brian Cannon MD,PhD [facility] Coding Level of Care Code New Pt Level 4 (25238) Diagnoses Degeneration of intervertebral disc of lumbar region with discogenic back pain and lower extremity pain M51.362 Disc-related pain type: discogenic back pain and lower extremity pain
[2024-10-07 09:55] VITALS: BMI 29.7
== END 2024-10-07 10:54 | disposition home or self-care (01) ==
PROVIDERS: PCP Internal Medicine; Referring Provider Physical Medicine & Rehabilitation; Visit Provider Physician Assistant
DX: M51.362 Other intervertebral disc degeneration, lumbar region with discogenic back pain and lower extremity pain (principal)
CPT/HCPCS: 99204

== ENCOUNTER → 2024-10-07 09:42 | Outpatient (BNVA) | payer OTHER, SELFPAY | PROVIDERS: PCP Internal Medicine; Referring Provider Physical Medicine & Rehabilitation; Visit Provider Physician Assistant | DX: M51.362 Other intervertebral disc degeneration, lumbar region with discogenic back pain and lower extremity pain (principal) | CPT/HCPCS: 99202 ==

== ENCOUNTER 2024-10-10 10:13 | Outpatient (REF) | payer OTHER, SELFPAY ==
[2024-10-10 10:38] LABS: MANUAL DIFF FLAG NO
[2024-10-10 11:01] LABS: Basophils Absolute Auto 0.1 X10*3/uL (0.0-0.2); Eosinophils Absolute Auto 0.2 X10*3/uL (0.0-0.4); Eosinophils Percent Auto 2.5 % (0-4); Hematocrit 44.7 % (42.0-52.0); Hemoglobin 15.5 g/dl (14.0-18.0); Imm Gran Abs Auto 0.07 X10*3/uL (0.00-0.03); Imm Gran Pct Auto 0.7 % (0.0-0.4); Lymphocytes Absolute Auto 2.7 X10*3/uL (1.2-4.9); Lymphocytes Percent Auto 28.3 % (20-40); Mean Corpuscular HGB Conc 34.7 g/dl (31.0-36.0); Mean Corpuscular Hemoglobin 30.2 pg (27.0-33.0); Mean Corpuscular Volume 87.1 fL (80.0-98.0); Mean Platelet Volume 11.2 fL (9.4-12.4); Monocytes Absolute Auto 0.7 X10*3/uL (0.1-1.2); Monocytes Percent Auto 7.5 % (2-11); Neutrophils Absolute Auto 5.7 x10*3/uL (2.0-8.3); Platelet Count 325 X10*3/uL (160-400); Red Blood Count 5.13 X10*6/uL (4.60-5.80); Red Cell Distribution Width 12.4 % (11.0-16.0); White Blood Count 9.4 X10*3/uL (4.8-10.8)
[2024-10-10 11:17] LABS: Appearance Urine Clear; Color Urine Yellow; Glucose Urine UA Negative (Negative); Leukocyte Esterase Urine Negative (Negative); Nitrite Urine Negative (Negative); PH 7.5 (5.0-9.0); Specific Gravity - Urine 1.015 (1.005-1.025); Urine Blood Negative (Negative); Urine Ketones Negative (Negative); Urine Protein Negative (Neg-Trace)
[2024-10-10 11:22] LABS: Alanine Aminotransferase 39 U/L (0-40); Albumin Level 4.7 g/dL (3.5-5.0); Alkaline Phosphatase 78 U/L (39-117); Anion Gap 8 (12-20); Aspartate Amino Transferase 30 U/L (5-37); Bilirubin Total 0.5 mg/dL (0.0-1.0); Blood Urea Nitrogen 12 mg/dL (9-16); Calcium 9.5 mg/dL (8.4-10.2); Carbon Dioxide 25 mmol/L (22-29); Chloride 112 mmol/L (96-108); Cholesterol 173 mg/dL (<200); Estimated Glomerular Filt Rate > 60; Glucose Fasting 108 mg/dL (60-99); HDL Cholesterol 35 mg/dL (>40); LDL Cholesterol Calculated 90 mg/dL (<100); Potassium 4.1 mmol/L (3.3-5.1); Sodium 141 mmol/L (135-145); TSH reflex Free T4 0.53 uIU/mL (0.32-4.0); Triglycerides 242 mg/dL (<150); Vitamin D 25-OH Total 16.6 ng/mL (>30)
[2024-10-10 11:24] LABS: Prostate Specific Antigen Scr 0.28 ng/mL (<0.05-4.0)
== END 2024-10-10 10:14 | disposition home or self-care (01) ==
LOC: HO.LAB 10:13
PROVIDERS: PCP Internal Medicine; Visit Provider Internal Medicine
DX: Z00.00 Encounter for general adult medical examination without abnormal findings (principal); E78.00 Pure hypercholesterolemia, unspecified; R30.0 Dysuria; D64.9 Anemia, unspecified; E55.9 Vitamin D deficiency, unspecified
CPT/HCPCS: 36415; 80053; 80061; 81003; 82306; 84153; 84443; 85025

== ENCOUNTER 2024-11-18 10:01 | Outpatient (AMB) | payer OTHER, SELFPAY ==
[2024-11-18 10:12] VITALS: BMI 29.7
--- NOTE | 2024-11-18 10:12 | A.OFFVIS_ITS ---
Vital Signs 11/18/24 10:12 Height 5 ft 11 in Weight 213 lb BMI 29.7 Intake Visit Reasons: OV-right shoulder pain Intake Note: Ramon is a 54 year old right hand dominant male who presents today for a follow up of his right shoulder pain. At his last visit it was recommended that he continue working with physical therapy. Patient reports that he is having continued pain, worse with lifting and at night while sleeping. The shoulder is feeling weak. He states that he didn't continue therapy - he was seeing [facility]. Hx of Right Shoulder Arthroscopy w/ RTC Repair 10/30/2019. Allergies tizanidine [TIZANIDINE] Allergy (Severe, Verified 10/07/24 10:24) FACIAL SWELLING, angioedema gabapentin Adverse Reaction (Intermediate, Uncoded 09/19/24 09:22) recurrent cough HPI HPI OV-right shoulder pain: Details: Ramon is a 54 year old right hand dominant male who presents today for a follow up of his right shoulder pain. At his last visit it was recommended that he continue working with physical therapy. Patient reports that he is having continued pain, worse with lifting and at night while sleeping. The shoulder is feeling weak. He states that he didn't continue therapy - he was seeing [facility]. Hx of Right Shoulder Arthroscopy w/ RTC Repair 10/30/2019. [facility] Medical History (Updated 09/20/24 @ 00:00 by Sylwia Gardiner) Osteoarthritis of right hand Lumbar degenerative disc disease Vitamin D deficiency Depression Lateral epicondylitis, right elbow Obesity (BMI 30-39.9) Smoker Migraine Benign essential hypertension Surgical History (Updated 11/18/24 @ 10:22 by William Wallace MD) History of surgery on arm History of arthroscopy of right shoulder Family History Father Medical history unknown Mother Hypertension Diabetes Social History Housing: Apartment Alcohol intake: current Alcohol intake frequency: a few times a month Alcohol type: beer Patient Tobacco Use Status: Current everyday Tobacco user Tobacco use type: Cigarette Cigarettes Per Day: 15 Years Smoked: 30 +/- e-Cigarette/Vaping Use: Never Used Second Hand Smoke Exposure: No service: No Current occupational status: employed Cognitive needs: No Hearing needs: No Vision needs: No Physical Exam Vital Signs: BMI result Body Mass Index 29.7 Assessment & Plan Assessment & Plan (1) History of arthroscopy of right shoulder: Comment: 10/2019 arthroscopic right rotator cuff repair (Dr. Wallace) Code(s): Z98.890 - Other specified postprocedural states Category: Surgical Plan: Or hay is 5 years status post subscapularis repair with ongoing pain and stiffness and weakness. I recommend a repeat MRI. Orders: Orders MR shoulder RT wo con Today Z98.890 - Other specified postprocedural states Coding Level of Care Code Est Pt Level 3 (44702) Diagnoses History of arthroscopy of right shoulder Z98.890
--- OUTSIDE RECORDS SUMMARY | 2024-11-18 11:23 | XMS_ITS | Encounter Summary ---
Author Organization [employer] [facility] Address [address] [place] [address] Care Team Providers Care Plumber And Tinner Name Role Phone Unavailable Primary Care Provider Unavailabl e Encounter Details Date Type Department Care Team (Latest Contact Info) Description 03/02/2021 Abstract C CONVERSIONS Dental, Provider, DDS Social History Tobacco Use Types Packs/Day Years Used Date Smoking Tobacco: Never Assessed Sex and Gender Information Value Date Recorded Sex Assigned at Male 07/18/2022 10:35 AM EDT Legal Sex Male 10:35 AM EDT Gender Identity Male 07/18/2022 10:35 AM EDT Sexual Orientation Choose not to disclose 2021 10:35 AM EDT documented as of this encounter Plan of Treatment Not on file documented as of this encounter Visit Diagnoses Not on filedocumented in this encounter
--- OUTSIDE RECORDS SUMMARY | 2024-11-18 11:23 | XMS_ITS | Encounter Summary ---
Author Organization [facility] [facility] Address [address] [place] [address] Care Team Providers Care Carburetor Repairer Name Role Phone Unavailable Primary Care Provider Unavailabl e Encounter Details Date Type Department Care Team (Latest Contact Info) Description 02/13/2019 Abstract C CONVERSIONS Dental, Provider, DDS Social [...]
--- OUTSIDE RECORDS SUMMARY | 2024-11-18 11:23 | XMS_ITS | Clinical Summary ---
Author Organization [facility] [facility] Address [address] [place] [address] Care Team Providers Care Assistant Professor Of Business Name Role Phone Unavailable Primary Care Provider Unavailabl e Allergies No known active allergies Medications acetaminophen (Tylenol) 500 MG tablet Take 1 tablet (500 mg) by mouth every 6 (six) hours if needed for mild pain for up to 20 doses. 20 tablet 01/23/2024 Active ibuprofen 600 MG tablet Take 1 tablet (600 mg) by mouth every 6 (six) hours if needed for mild pain for up to 20 doses. 20 tablet 01/23/2024 Active Active Problems Problem Noted Date Diagnosed Date Caries of cervical margin of tooth 01/23/2024 Retained dental root 01/23/2024 Social History Tobacco Use Types Packs/Day Years Used Date Smoking Tobacco: Every Day Cigarettes 1 10 Tobacco Cessation:Ready to Q uit: Not Asked; Counseling Given: Not Answered Alcohol Use Standard Drinks/Week Comments Defer 0 (1 standard drink = 0.6 oz pur e alcohol) Sex and Gender Information Value Date Recorded Sex Assigned at Male 07/18/2022 10:35 AM EDT Legal Sex Male 10:35 AM EDT Gender Identity Male 07/18/2022 10:35 AM EDT Sexual Orientation Choose not to disclose 2021 10:35 AM EDT Plan of Treatment Health Maintenance Due Date Last Done Comments CT Colonography 1972 Colonoscopy 1972 Colorectal Cancer Screening 1972 Depression Screening 1972 FIT DNA/Cologuard 1972 FIT 1972 FOBT 1972 HIV Screening 1972 Lipid Panel 1972 SDOH Screening 1972 Sigmoidoscopy 1972 Pneumococcal Vaccine: Pediatrics (0 to 5 Years) and At-Risk Patients (6 to 49) Years) (1 of 2 - PCV) 1978 Alcohol/Substance Use Screening 1984 Family Planning (PISQ) 1987 Hepatitis C Screening 1990 Hepatitis B Vaccines (1 of 3 - 19+ 3-dose series) 1991 Pneumococcal Vaccine: 50+ Years (1 of 2 - PCV) 1991 Dental Oral Exam 08/19/2021 02/16/2021, 01/02/2019 Dental Prophylaxis 09/02/2021 03/02/2021, 02/13/2019 Dental X-Ray: Full Mouth 01/03/2022 01/02/2019 Dental X-Ray: Bitewings 02/17/2022 02/16/2021, 01/02 Zoster Vaccines (1 of 2) 2022 COVID-19 Vaccine (3 - 2023- season) 2024 10/14/2021, 09/23/2021 Influenza Vaccine (#1) 2024 , 08/03/2021, 07/29/2020, Additional history exists Tobacco Screening 01/22/2025 01/23/2024 DTaP/Tdap/Td Vaccines (3 - Td or Tdap) 02/26/2027 02/26/2017, 08/18/2016, 07/27/2013 RSV Patients and Patients Aged 60 years or older (1 - 1-dose 75+ series) 2047 HIB Vaccines Aged Out No longer eligi ble based on patient's age to complete this topic HPV Vaccines Aged Out No longer eligi ble based on patient's age to complete this topic Hepatitis A Vaccines Aged Out No long er eligible based on patient's age to complete this topic IPV Vaccines Aged Out No longer eligi ble based on patient's age to complete this topic Meningococcal Vaccine Aged Out No parker vikas eligible based on patient's age to complete this topic RSV under 20 months Aged Out No longe r eligible based on patient's age to complete this topic Rotavirus Vaccines Aged Out No longer eligible based on patient's age to complete this topic Procedures Procedure Name Priority Date/Time Associated Diagnosis Comments PROPHYLAXIS - ADULT Routine 03/02/2021 1 2:00 AM EDT BITEWINGS - 4 RADIOGRAPHIC IMAGES Routine 02/16/2021 12:00 AM EDT PERIODIC ORAL EVALUATION - ESTABLISHED PATIENT Routine 02/16/2021 12:00 AM EDT INTRAORAL - COMPLETE SERIES OF RADIOGRAPHIC IMAGES Routine 01/02/2019 12:00 AM EDT from Last 3 Months or Most Recently Relevant to Health Maintenance Insurance [facility] [place] [address]
== END 2024-11-18 10:22 | disposition home or self-care (01) ==
PROVIDERS: PCP Internal Medicine; Visit Provider Orthopaedic Surgery
DX: M25.511 Pain in right shoulder (principal)
CPT/HCPCS: 99213

== ENCOUNTER → 2024-11-18 10:01 | Outpatient (BNVA) | payer OTHER, SELFPAY | PROVIDERS: PCP Internal Medicine; Visit Provider Orthopaedic Surgery | DX: Z47.89 Encounter for other orthopedic aftercare (principal); Z98.890 Other specified postprocedural states | CPT/HCPCS: 99212 ==

== ENCOUNTER 2024-11-26 10:38 | Outpatient (REF) | payer OTHER, SELFPAY ==
--- NOTE | ~2024-11-26 | MR_ITS ---
CLINICAL HISTORY: Z98.890 - Other specified postprocedural states MR right shoulder without gadolinium Comparison: None Findings: No acute fracture or pathologic bone lesion. Moderate acromioclavicular and glenohumeral joint osteoarthritis. Type II acromion. No effusion. Full-thickness tearing of the mid/anterior supraspinatus tendon at the humeral insertion site, measuring roughly 10 mm anteroposterior. Low-grade intrasubstance and articular surface tearing of the mid/posterior supraspinatus as well as the anterior infraspinatus tendons at the humeral insertion site. Subscapularis and teres minor tendons are intact. No rotator cuff atrophy. Biceps tendon reimplantation has been performed. There is partial-thickness tearing of the reimplanted biceps tendon proximally. Degenerative fraying of the glenoid labrum is present. There is focal undercutting of the posterosuperior labrum. IMPRESSION: 1. Full-thickness and partial-thickness tearing of the supraspinatus tendon as described above. 2. Acromioclavicular and glenohumeral joint osteoarthritis. 3. Partial-thickness tearing of the reimplanted biceps tendon. 4. Glenoid labral tearing. This document has been electronically signed by: Julieth Dial MD on 11/27/2024 14:52:44
--- OUTSIDE RECORDS SUMMARY | 2024-11-26 12:47 | XMS_ITS | Encounter Summary ---
Author Organization [employer] [facility] Address [address] [place] [address] Care Team Providers Care Pipeline Executive Name Role Phone Unavailable Primary Care Provider Unavailabl e Encounter Details Date Type Department Care Team (Latest Contact Info) Description 02/13/2019 Abstract [facility] CONVERSIONS Dental, Provider, DDS Social History Tobacco Use Types Packs/Day Years Used Date Smoking Tobacco: Never Assessed Sex and Gender Information Value Date Recorded Sex Assigned at Male 07/18/2022 10:35 AM EDT Legal Sex Male 10:35 AM EDT Gender Identity Male 07/18/2022 10:35 AM EDT Sexual Orientation Choose not to disclose 2021 10:35 AM EDT documented as of this encounter Plan of Treatment Upcoming Encounters Date Type Department Care Team (Late st Contact Info) Description 12/24/2024 10:00 AM EDT Office Visit [facility] ADULT DENTAL [address] [place] [address] Kelton Dominique, GIULIANOS [address] [place] [address] documented as of this encounter Visit Diagnoses Not on filedocumented in this encounter
--- OUTSIDE RECORDS SUMMARY | 2024-11-26 12:48 | XMS_ITS | Clinical Summary ---
Author Organization [employer] [facility] Address [address] [place] [address] Care Team Providers Care Software Test Developer Name Role Phone Unavailable Primary Care Provider [...] 2021 10:35 AM EDT Plan of Treatment Upcoming Encounters Date Type Department Care Team (Late st Contact Info) Description 12/24/2024 10:00 AM EDT Office Visit [facility] ADULT DENTAL [address] [place], [place] [phone] Kelton Dominique DDS [address] [place], [place] [phone] Health Maintenance Due Date Last Done Comments CT Colonography 1972 Colonoscopy 1972 Colorectal Cancer Screening 1972 Depression Screening 1972 FIT DNA/Cologuard 1972 FIT 1972 FOBT 1972 HIV Screening 1972 Lipid Panel 1972 SDOH Screening 1972 Sigmoidoscopy 1972 Alcohol/Substance Use Screening 1984 Family Planning (PISQ) [...] Most Recently Relevant to Health Maintenance Insurance [facility] [place] [id number]
--- OUTSIDE RECORDS SUMMARY | 2024-11-26 12:48 | XMS_ITS | Encounter Summary ---
Author Organization [employer] [facility] Address [address] [place] [address] Care Team Providers Care Technical Support Intern Name Role Phone Unavailable Primary Care Provider Unavailabl e Encounter Details Date Type Department Care Team (Latest Contact Info) Description 03/02/2021 Abstract [facility] CONVERSIONS Dental, Provider, DDS Social History [...] Description 12/24/2024 10:00 AM EDT Office Visit [facility] ADULT D[facility] [address] [place] [address] Kelton Dominique, DDS [address] [place] [address] documented as of this encounter Visit Diagnoses Not on filedocumented in this encounter
== END 2024-11-26 10:39 | disposition home or self-care (01) ==
LOC: HO.MRI 10:38
PROVIDERS: PCP Internal Medicine; Visit Provider Orthopaedic Surgery
DX: Z98.890 Other specified postprocedural states (principal)
CPT/HCPCS: 73221

== ENCOUNTER → 2024-11-26 10:43 | Outpatient (BNV) | payer OTHER, SELFPAY | PROVIDERS: PCP Internal Medicine; Visit Provider Radiology Diagnostic Radiology | DX: M75.121 Complete rotator cuff tear or rupture of right shoulder, not specified as traumatic (principal); M19.011 Primary osteoarthritis, right shoulder; S43.431A Superior glenoid labrum lesion of right shoulder, initial encounter | CPT/HCPCS: 73221 ==

== ENCOUNTER 2025-01-01 15:22 | Outpatient (AMB) | payer OTHER, SELFPAY ==
[2025-01-01 15:26] VITALS: BP 136/100; PULSE 105; O2SAT 96; BMI 30.7
--- NOTE | 2025-01-01 15:26 | A.OFFPC_ITS ---
Vital Signs 01/01/25 15:26 Height 5 ft 11 in Weight 220 lb 4 oz BMI 30.7 BP 136/100 H Blood Pressure Location Lt brachial Position Sitting Pulse 105 H Pulse Source Pulse Oximeter Pulse Oximetry (%) 96 Oxygen Delivery Method Room Air Intake Visit Reasons: lumbar DDD, hypertriglyceridemia, HTN Control Room Agent Required: No Accompanied by: Self / Same As Patient Allergies tizanidine [TIZANIDINE] Allergy (Severe, Verified 01/01/25 15:54) FACIAL SWELLING, angioedema gabapentin Adverse Reaction (Intermediate, Uncoded 01/01/25 15:54) recurrent cough Medication List - Last Reconciled 01/01/25 by Kalia Varghese MD blood pressure monitor As directed blood pressure test kit-large (Self-Taking Blood Pressure kit) As directed cholecalciferol (vitamin D3) 50 mcg PO DAILY 90 days escitalopram oxalate 5 mg PO DAILY 90 days fenofibrate 160 mg PO DAILY 90 days ibuprofen 800 mg PO TID PRN losartan 50 mg PO DAILY 90 days [RIGHT HAND BRACE As directed] [RIGHT SHOULDER BRACE As directed] Tobacco use date assessed: 01/01/25 Dental Screening Dental Screen Date: 01/01/25 Did you have a dental visit in the last 12 months?: Yes Did you have a dental problem in the last 6 months where you did not have access to dental care?: No Was dental information given to patient?: Patient has dentist HPI lumbar DDD, hypertriglyceridemia, HTN HPI Details Patient comes in today for his follow-up visit States that he continues to experience increased pain over his lower back He was seen by the [facility] a few months ago and was advised that he does not have any surgical indication He would like to request for something to help at this time with his low back pain has his pain has increased somewhat lately Patient denies any headaches or dizziness Denies any chest pains, no shortness of breath No nausea/vomiting, no abdominal pain No change in bowel habits noted He also continues to experience increased pain over his right shoulder He had an MRI of the shoulder done last month and is scheduled to see Dr. Wallace for orthopedic follow-up for his shoulder in a couple of weeks Needs a few of his Rx refilled He was not able to get his follow-up labs done prior to his appointment today - states that he will try to get them done [facility] Medical History Osteoarthritis of right hand Lumbar degenerative disc disease Vitamin D deficiency Depression Lateral epicondylitis, right elbow Obesity (BMI 30-39.9) Smoker Migraine Benign essential hypertension Surgical History History of surgery on arm History of arthroscopy of right shoulder Family History Father Medical history unknown Mother Hypertension Diabetes Social History Housing: Apartment Alcohol intake: current Alcohol intake frequency: a few times a month Alcohol type: beer Patient Tobacco Use Status: Current everyday Tobacco user Tobacco use type: Cigarette Cigarettes Per Day: 15 Years Smoked: 30 +/- e-Cigarette/Vaping Use: Never Used Second Hand Smoke Exposure: No service: No Current occupational status: employed Cognitive needs: No Hearing needs: No Vision needs: No Questionnaire PHQ-9 Over the last 2 weeks, how often have you been bothered by any of the following problems? 1. Little interest or pleasure in doing things: not at all 2. Feeling down, depressed, or hopeless: not at all 3. Trouble falling or staying asleep, or sleeping too much: not at all 4. Feeling tired or having little energy: nearly every day 5. Poor appetite or overeating: not at all 6. Feeling bad about yourself - or that you are a failure or have let yourself or your family down: not at all 7. Trouble concentrating on things, such as reading the newspaper or watching television: not at all 8. Moving or speaking so slowly that other people could have noticed. Or the opposite - being so fidgety or restless that you have been moving around a lot more than usual: not at all 9. Thoughts that you would be better off or of hurting yourself in some way: not at all Total score: 3 Depression Screening Interpretation: Positive Depression Screening Follow-up: Existing condition and In treatment Depression Screening Done: Yes 26608 - PHQ-9 Billing: Yes Source: Developed by Drs. Elmer Elkins, Regine Sharma, Carson Lopez and colleagues, with an educational erihc from [employer]. Thrive Questionnaire Date Thrive assessed: 01/01/25 I am a: Patient What is your living situation today?: I choose not to answer this question Within the past 12 months, did the food you bought not last and you didn't have the money to get more?: I choose not to answer this question Within the past 12 months, did you worry whether your food would run out before you got money to buy more?: I choose not to answer this question Do you have trouble paying for medicines?: I choose not to answer this question Do you have trouble getting transportation to medical appointments?: I choose not to answer this question Do you have trouble paying your heating and electricity bill?: I choose not to answer this question Do you have trouble taking care of your child, family member or friend?: I choose not to answer this question Do you have trouble with day-to-day activities such as bathing, preparing meals, shopping, managing finances, etc.?: I choose not to answer this question Are you currently unemployed and looking for a job?: I choose not to answer this question Are you interested in more education?: I choose not to answer this question Please select the resources that you would like help with: None Currently or been in a relationship where the following occur: I choose not to answer THRIVE Score: 0 AUDIT C Alcohol Use Questionnaire (AUDIT-C) 1. How often do you have a drink containing alcohol?: 2-4 times a month 2. How many drinks containing alcohol do you have on a typical day when you are drinking?: 1 or 2 3. How often do you have six or more drinks on one occasion?: Never Total Score: 2 Score Reviewed/Action Taken: Yes RYAN-7 AMB Questionnaire RYAN-7 Date RYAN - 7 assessed: 01/01/25 Feeling nervous, anxious, or on edge: 0 = Not at all Not being able to stop or control worryin = Not at all Worrying too much about different things: 0 = Not at all Trouble relaxin = Not at all Being so restless that it is hard to sit still: 0 = Not at all Becoming easily annoyed or irritable: 0 = Not at all Feeling afraid as if something awful might happen: 0 = Not at all Total RYAN-7 score (0-4 normal; 5-9 mild; 10-14 moderate; 15-21 severe): 0 Source: Developed by Drs. Elmer Elkins, Regine Sharma, Carson Lopez and colleagues, with an educational erich from [employer]. Review of Systems Const Denies chills, Reports fatigue, Denies fever(s) and Denies headache(s) ENT Denies dysphagia, Denies dizziness, Denies otalgia, Denies headache(s), Denies neck pain, Denies odynophagia and Denies sore throat Card Denies chest pain, Denies irregular heart rhythm, Denies palpitations and Denies dyspnea Resp Denies chest congestion, Denies cough and Denies dyspnea GI Denies abdominal pain, Denies constipation, Denies dysphagia, Denies heartburn, Denies diarrhea, Denies nausea, Denies odynophagia and Denies vomiting Denies difficulty urinating, Denies dysuria and Denies urinary frequency Musc Details: Increased right shoulder pain lately Reports back pain (increased, over the lower back), Reports arthralgias (on and off in the right ankle, right heel/foot, both hands & shoulders ) and Denies neck pain Skin/Breast Denies change in pigmentation, Denies lesions, Denies rash and Denies unusual bruising Neuro Denies dizziness, Denies headache(s) and Denies paresthesias Psych Reports depression (controlled on his current Rx) Endo Reports fatigue and Denies palpitations Physical exam (Primary Care) Vital Signs: Last Vital Signs Pulse 105 H 01/01/25 15:26 BP 136/100 H 01/01/25 15:26 Pulse Ox 96 01/01/25 15:26 Oxygen Delivery Method Room Air 01/01/25 15:26 BMI result Body Mass Index 30.7 Tobacco/Smoking Status: Tobacco use Status Tobacco use date assessed 01/01/25 01/01/25 15:37 Patient Tobacco Use Status Current everyday Tobacco 01/01/25 15:37 Tobacco use type Cigarette 01/01/25 15:37 e-Cigarette/Vaping Use Never Used 01/01/25 15:37 PHQ-9: PHQ-9 Score PHQ-9: Total score 3 01/05/25 21:11 Depression Screening Interpretation: Positive Depression Screening Follow-up: Existing condition and In treatment Thrive Assessment: Date of Thrive Assessment Date Thrive assessed 01/01/25 01/01/25 15:37 Currently or been in a relationship where the following occur: I choose not to answer Const General: no acute distress and alert HENMT Ears: TM's normal bilaterally and EAC's normal Throat: Yes posterior oropharynx normal and Yes tonsils normal (no TP congestion) Neck Neck: Yes no lymphadenopathy and Yes supple Thyroid: Thyroid normal Resp Auscultation: clear to auscultation bilaterally, no rales and no wheezes Cardio Rate: regular rate Rhythm: regular rhythm Heart sounds: no murmurs GI Palpation (GI): Soft to palpation and nontender Auscultation: normal bowel sounds General: Yes no CVA tenderness Back/Spine/Pelvis Back: no CVA tenderness Thoracic/Lumbar Spine: lumbar spinal tenderness and straight leg raise positive Skin Rashes: no rashes Extrem General: Yes no clubbing, cyanosis or edema Right upper extremity: shoulder/upper arm Details: tenderness Location: of the A-C joint Results Reviewed Results Reviewed: Laboratory Tests 03/08/24 10/10/24 10/10/24 08:18 10:37 10:38 WBC 9.4 Hgb 15.5 Hct 44.7 Plt Count 325 Sodium 141 Potassium 4.1 Creatinine 0.80 Estimated GFR > 60 Fasting Glucose 108 H Calcium 9.5 AST 30 ALT 39 Triglycerides 279 H 242 H Cholesterol 154 173 LDL Cholesterol, Calc 61 90 HDL Cholesterol 38 L 35 L PSA Screen 0.28 25-OH Vitamin D Total 18.0 L 16.6 L TSH 0.53 Ur Specific [place] 1.015 Urine Protein Negative Urine Glucose (UA) Negative Urine Blood Negative Urine Nitrite Negative Ur Leukocyte Esterase Negative Coding Level of Care Code Est Pt Level 4 (83605) Diagnoses Hypertriglyceridemia E78.1 Benign essential hypertension I10 Impaired fasting glucose R73.01 Migraine without status migrainosus, not intractable, unspecified migraine type G43.909 Intractability: not intractable Migraine type: unspecified Status migrainosus presence: without status migrainosus Vitamin D deficiency E55.9 Degeneration of intervertebral disc of lumbar region with discogenic back pain and lower extremity pain M51.362 Disc-related pain type: discogenic back pain and lower extremity pain Primary osteoarthritis of right hand M19.041 Osteoarthritis type: primary Right rotator cuff tear arthropathy M75.101; M12.811 Episode of recurrent major depressive disorder, unspecified depression episode severity F33.9 Active/Remission status: currently active Depression Type: major depressive disorder Major depression episode severity: unspecified Major depression recurrence: recurrent Smoker F17.200 Obesity (BMI 30-39.9) E66.9 Additional Codes PHQ-9 - 13282 - PHQ-9 Billing: Yes ([id number]) Assessment & Plan Assessment & Plan (1) Hypertriglyceridemia: Code(s): E78.1 - Pure hyperglyceridemia Category: Medical Plan: Will have patient recheck his fasting lipids DIANNE as he was not able to get his follow-up labs done prior to his appointment today Reinforced low cholesterol diet Continue Fenofibrate 160 mg QD Will recheck his labs and fasting lipids again in 4 months for follow up (2) Benign essential hypertension: Code(s): I10 - Essential (primary) hypertension Category: Medical Plan: Reinforced low sodium diet - goal is systolic BP of 120 mm or less Continue Losartan 50 mg QD (3) Impaired fasting glucose: Code(s): R73.01 - Impaired fasting glucose Category: Medical Plan: His HgbA1c was normal at 5.2% when last checked in August 2023 Reinforced low calorie/low carb diet Will recheck his FBS for follow up (4) Migraine: Code(s): G43.909 - Migraine, unspecified, not intractable, without status migrainosus Category: Medical Qualifiers: Intractability: not intractable Migraine type: unspecified Status migrainosus presence: without status migrainosus Qualified Code(s): G43.909 - Migraine, unspecified, not intractable, without status migrainosus Plan: Appears controlled/stable - he was taken off both Topiramate and Fioricet by neurology a while back and he has not had any significant increase in his headaches since Follow up with neurology as scheduled (5) Vitamin D deficiency: Code(s): E55.9 - Vitamin D deficiency, unspecified Category: Medical Plan: Continue Vitamin D3 2000 units QD Will recheck his Vitamin D level for follow up (6) Lumbar degenerative disc disease: Comment: Symptoms radiate posteriorly down both lower extremities to the feet but are slightly worse on the left side; reports occasional feelings of weakness in both legs Code(s): M51.369 - Other intervertebral disc degeneration, lumbar region without mention of lumbar back pain or lower extremity pain Category: Medical Qualifiers: Disc-related pain type: discogenic back pain and lower extremity pain Qualified Code(s): M51.362 - Other intervertebral disc degeneration, lumbar region with discogenic back pain and lower extremity pain Plan: Reinforced activity and weight-lifting restrictions to avoid aggravating his low back pain X-rays of the lumbar spine done last year (August 2023) revealed (+) multi- level lumbar Schmorl's node formation. The lumbar disc spaces are well- maintained and no acute fracture or spondylolisthesis is seen He reportedly had an MRI of the lumbar spine done with [facility] more recently that revealed a disc bulge and left anterior disc herniation at L5-S1 with mild to moderate left foraminal narrowing He apparently also had a lumbar interlaminar injection which did not help He has tried physical therapy a few months ago without improvement He was previously tried on Gabapentin 100 mg TID but he stopped the Rx due to side effects (increased coughing) He has also tried Cyclobenzaprine but felt that this did not help He is currently on Pregabalin 75 mg BID prescribed by [facility] Continue Lidocaine 5% patches QD to his lower back PRN for pain, Methocarbamol 750 mg TID and Ibuprofen 800 mg TID but he states that the medications barely help Will change his Ibuprofen to Naproxen 500 mg BID PRN with food States that he just had some procedure done with [facility], likely medial branch block, just a couple of days ago - states that he has not experienced any relief yet but it might be too early to tell [facility] has also mentioned the possibility that they may try him on a radiofrequency procedure Follow-up with [facility] as scheduled (7) Osteoarthritis of right hand: Code(s): M19.041 - Primary osteoarthritis, right hand Category: Medical Qualifiers: Osteoarthritis type: primary Qualified Code(s): M19.041 - Primary osteoarthritis, right hand Plan: X-rays of both hands done last year (2022) revealed (+) OA changes in the right hand; left hand x-rays are normal Arthralgia work ups done last year (MARY, RF, CRP, ESR) also came back normal EMG & NCV of both hands done back in March 2023 revealed (+) 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 and mild bilateral ulnar neuropathy across the cubital tunnel He is currently wearing a wrist brace on his right hand/wrist, which he states is helping somewhat; have advised him again of option of seeing orthopedics for consideration for carpal tunnel release surgery if his symptoms progres (8) Right rotator cuff tear arthropathy: Code(s): M75.101 - Unspecified rotator cuff tear or rupture of right shoulder, not specified as traumatic; M12.811 - Other specific arthropathies, not elsewhere classified, right shoulder Category: Medical Plan: MRI of the right shoulder done last month (November 2024) revealed (+) full- thickness and partial-thickness tearing of the supraspinatus tendon, acromioclavicular and glenohumeral joint osteoarthritis, partial- thickness tearing of the reimplanted biceps tendon and glenoid labral tearing Follow up with orthopedics as scheduled (9) Depression: Code(s): F32.A - Depression, unspecified Category: Medical Qualifiers: Active/Remission status: currently active Depression Type: major depressive disorder Major depression episode severity: unspecified Major depression recurrence: recurrent Qualified Code(s): F33.9 - Major depressive disorder, recurrent, unspecified Plan: Continue Escitalopram 5 mg QD (10) Smoker: Code(s): F17.200 - Nicotine dependence, unspecified, uncomplicated Category: Social Hx Plan: Patient is counseled again on smoking cessation (11) Obesity (BMI 30-39.9): Code(s): E66.9 - Obesity, unspecified Category: Medical Plan: Reinforced diet; exercise and weight loss are not practical at present due to his increased low back pain Plan Follow-up in 4 months Orders: Orders Lipid Panel 4 Months E78.00 - Pure hypercholesterolemia, unspecified Complete Blood Count Auto Diff 4 Months D64.9 - Anemia, unspecified Comprehensive [place]. Panel Fast 4 Months E78.00 - Pure hypercholesterolemia, unspecified Medications: New naproxen Take with food as needed for pain - DO NOT TAKE Ibuprofen when taking this medication 500 mg PO BID 30 days PRN 60 tabs 0RF pain methocarbamol 500 mg PO TID 30 days PRN 90 tabs 0RF low back pain lidocaine 5% leave on most painful area for up to 12 hrs 1 patch topical DAILY 30 ea 0RF Refilled fenofibrate 160 mg PO DAILY 90 days 90 tabs 1RF E78.1 - Pure hyperglyceridemia cholecalciferol (vitamin D3) 50 mcg PO DAILY 90 days 90 caps 3RF E55.9 - V itamin D deficiency, unspecified
--- OUTSIDE RECORDS SUMMARY | 2025-01-01 17:58 | XMS_ITS | Clinical Summary ---
Author Organization [facility] Address [address] [place] [address] Care Team Providers Care Infant Babysitter Name Role Phone Unavailable Primary Care Provider Unavailabl e Allergies Active Allergy Reactions Criticality Noted Date Comments Lisinopril 02/16/2021 Medications acetaminophen (Tylenol) 500 MG tablet Take 1 tablet (500 mg) by mouth every 6 (six) hours if needed for mild pain for up to 20 doses. 20 tablet 01/23/2024 Active ibuprofen 600 MG tablet Take 1 tablet (600 mg) by mouth every 6 (six) hours if needed for mild pain for up to 20 doses. 20 tablet 01/23/2024 Active losartan (Cozaar) 50 MG tablet Take 1 tablet by mouth Once per day. 08/02/2024 Active escitalopram (Lexapro) 5 MG tablet Take 5 mg by mouth Once per day. Active ketorolac (Toradol) 10 MG tablet TAKE 1 TABLET BY MOUTH EVERY 6 HOURS NEEDED FOR PAIN FOR 5 DAYS TAKE WITH FOOD 10/17/2024 Active pregabalin (Lyrica) 75 MG capsule Take 1 capsule by mouth 2 times daily. 08/02/2024 Active Active Problems Problem Noted Date Diagnosed Date Ill-fitting dentures 12/24/2024 Missing teeth, acquired 12/24/2024 Dental calculus 12/24/2024 Caries of cervical margin of tooth 01/23/2024 Retained dental root 01/23/2024 Encounters Date Type Department Care Team Description 12/25/2024 3:30 PM EDT Office Visit [facility] [address] [place] [address] Kelton Dominique DDS Ill-fitting dentures (Primary Dx) 12/24/2024 10:00 AM EDT Office Visit [facility] [address] [place] [address] Kelton Dominique DDS Ill-fitting dentures (Primary Dx); Missing teeth, acquired; Dental plaque; Dental calculus from Last 3 Months Social History Tobacco Use Types Packs/Day Years Used Date Smoking Tobacco: Some Days Cigarettes 1 10 Smokeless Tobacco: Never Tobacco Cessation:Ready to Q uit: Not Asked; Counseling Given: Not Answered Alcohol Use Standard Drinks/Week Comments Not Currently 0 (1 standard drink = 0.6 oz pur e alcohol) Sex and Gender Information Value Date Recorded Sex Assigned at Male 07/18/2022 10:35 AM EDT Legal Sex Male 10:35 AM EDT Gender Identity Male 07/18/2022 10:35 AM EDT Sexual Orientation Choose not to disclose 2021 10:35 AM EDT Last Filed Vital Signs Vital Sign Reading Time Taken Comments Blood Pressure 140/98 12/25/2024 4:04 PM EDT Pulse 80 12/25/2024 4:04 PM EDT Temperature - - Respiratory Rate - - Oxygen Saturation - - Inhaled Oxygen Concentration - - Weight - - Height - - Body Mass Index - - Plan of Treatment Health Maintenance Due Date Last Done Comments CT Colonography 1972 Colonoscopy 1972 Colorectal Cancer Screening 1972 Depression Screening 1972 FIT DNA/Cologuard 1972 FIT 1972 FOBT 1972 HIV Screening 1972 Lipid Panel 1972 SDOH Screening 1972 Sigmoidoscopy 1972 Alcohol/Substance Use Screening 1984 Family Planning (PISQ) 1987 Hepatitis C Screening 1990 Hepatitis B Vaccines (1 of 3 - + 3-dose series) 1991 Pneumococcal Vaccine: 50+ Years (1 of 2 - PCV) 1991 Dental Prophylaxis 09/02/2021 03/02/2021, 02/13/2019 Zoster Vaccines (1 of 2) 2022 COVID-19 Vaccine (3 - 2023- season) 2024 10/14/2021, 09/23/2021 Influenza Vaccine (#1) 2024 , 08/03/2021, 07/29/2020, Additional history exists Dental Oral Exam 06/26/2025 12/24/2024, 09/2020, 01/02/2019 Dental X-Ray: Bitewings 12/25/2025 12/25/19 25, 02/16/2021, 01/02/2019 Tobacco Screening 12/25/2025 12/25/2024 DTaP/Tdap/Td Vaccines (3 - Td or Tdap) 02/26/2027 02/26/2017, 08/18/2016, 07/27/2013 Dental X-Ray: Full Mouth 12/26/2027 12/24/2024, 12/17 RSV Patients and Patients Aged 60 years [...] Procedure Name Priority Date/Time Associated Diagnosis Comments CASE PRESENTATION, DETAILED AND EXTENSIVE TREATMENT PLANNING Routine 12/25/2024 3:30 PM EDT 20 ADD TOOTH TO EXISTING PARTIAL DENTURE Routine 12/25/2024 3:30 PM EDT 19 ADD TOOTH TO EXISTING PARTIAL DENTURE Routine 12/25/2024 3:30 PM EDT 18 ADD TOOTH TO EXISTING PARTIAL DENTURE Routine 12/25/2024 3:30 PM EDT 20 ADD CLASP TO EXISTING PARTIAL DENTURE - PER TOOTH Routine 12/25/2024 3:30 PM EDT CASE PRESENTATION, DETAILED AND EXTENSIVE TREATMENT PLANNING Routine 12/24/2024 10:00 AM EDT INTRAORAL - COMPLETE SERIES OF RADIOGRAPHIC IMAGES Routine 12/24/2024 10:00 AM EDT PERIODIC ORAL EVALUATION - ESTABLISHED PATIENT Routine 12/24/2024 10:00 AM EDT 19 EXTRACTION Routine 12/24/2024 12:00 AM EDT 20 EXTRACTION Routine 12/24/2024 12:00 AM EDT PROPHYLAXIS - ADULT Routine 03/02/2021 1 2:00 AM EDT from Last 3 Months or Most Recently Relevant to Health Maintenance [facility] ST[facility] ADULT
--- OUTSIDE RECORDS SUMMARY | 2025-01-01 17:58 | XMS_ITS | Encounter Summary ---
Author Organization [facility] Address [address] [place] [address] Care Team Providers Care Research Physiologist Name Role Phone Unavailable Primary Care Provider [...]
--- OUTSIDE RECORDS SUMMARY | 2025-01-01 17:58 | XMS_ITS | Encounter Summary ---
Author Organization [employer] [facility] Address [address] [place] [address] Care Team Providers Care Edge Stitcher Name Role Phone Unavailable Primary Care Provider [...]
== END 2025-01-01 16:10 | disposition home or self-care (01) ==
LOC: HO.HMCH 15:22
PROVIDERS: PCP Internal Medicine; Visit Provider Internal Medicine
DX: E78.1 Pure hyperglyceridemia (principal); F33.9 Major depressive disorder, recurrent, unspecified; I10 Essential (primary) hypertension; R73.01 Impaired fasting glucose; G43.909 Migraine, unspecified, not intractable, without status migrainosus; E55.9 Vitamin D deficiency, unspecified; M51.362 Other intervertebral disc degeneration, lumbar region with discogenic back pain and lower extremity pain; M19.041 Primary osteoarthritis, right hand; M75.101 Unspecified rotator cuff tear or rupture of right shoulder, not specified as traumatic; M12.811 Other specific arthropathies, not elsewhere classified, right shoulder; F17.200 Nicotine dependence, unspecified, uncomplicated; E66.9 Obesity, unspecified

== ENCOUNTER → 2025-01-01 15:22 | Outpatient (BNVA) | payer OTHER, SELFPAY | PROVIDERS: PCP Internal Medicine; Visit Provider Internal Medicine | DX: E78.1 Pure hyperglyceridemia (principal); I10 Essential (primary) hypertension; R73.01 Impaired fasting glucose; G43.909 Migraine, unspecified, not intractable, without status migrainosus; E55.9 Vitamin D deficiency, unspecified; M51.362 Other intervertebral disc degeneration, lumbar region with discogenic back pain and lower extremity pain; M19.041 Primary osteoarthritis, right hand; M75.101 Unspecified rotator cuff tear or rupture of right shoulder, not specified as traumatic; M12.811 Other specific arthropathies, not elsewhere classified, right shoulder; F33.9 Major depressive disorder, recurrent, unspecified; E66.9 Obesity, unspecified; Z68.30 Body mass index [BMI] 30.0-30.9, adult; F17.210 Nicotine dependence, cigarettes, uncomplicated; Z79.899 Other long term (current) drug therapy | CPT/HCPCS: 96127; 99212 ==

== ENCOUNTER 2025-01-20 12:13 | Outpatient (AMB) | payer OTHER, SELFPAY ==
[2025-01-20 12:17] VITALS: BMI 30.7
--- NOTE | 2025-01-20 12:17 | MHC.OFFVIS ---
Vital Signs 01/20/25 12:17 Height 5 ft 11 in Weight 220 lb BMI 30.7 Intake Visit Reasons: MRI Review right shoulder Intake Note: Ramon is a 54 year old male who presents today for an MRI review of the right shoulder. Allergies tizanidine [TIZANIDINE] Allergy (Severe, Verified 01/01/25 15:54) FACIAL SWELLING, angioedema gabapentin Adverse Reaction (Intermediate, Uncoded 01/01/25 15:54) recurrent cough HPI HPI MRI Review right shoulder: Details: Ramon is a 54 year old male who presents today for an MRI review of the right shoulder. He has had worsening pain over the past year. He has pain when he lifts his hand to shoulder height. He has pain at night and pain with daily activities. He has done physical therapy and it has not been helpful. He has had injections and they have been helpful for a short time only. He is diabetic. He has some ongoing low back issues that he is being treated for. [facility] Medical History Osteoarthritis of right hand Lumbar degenerative disc disease Vitamin D deficiency Depression Lateral epicondylitis, right elbow Obesity (BMI 30-39.9) Smoker Migraine Benign essential hypertension Surgical History History of surgery on arm History of arthroscopy of right shoulder Family History Father Medical history unknown Mother Hypertension Diabetes Social History Housing: Apartment Alcohol intake: current Alcohol intake frequency: a few times a month Alcohol type: beer Patient Tobacco Use Status: Current everyday Tobacco user Tobacco use type: Cigarette Cigarettes Per Day: 15 Years Smoked: 30 +/- e-Cigarette/Vaping Use: Never Used Second Hand Smoke Exposure: No service: No Current occupational status: employed Cognitive needs: No Hearing needs: No Vision needs: No Physical Exam Vital Signs: BMI result Body Mass Index 30.7 Extrem Other: On exam he has a 4+5 empty can and positive Quinn and Neer. 30/90/120/L5 with negative lift-off Results Reviewed Results Reviewed: I personally reviewed the MR images. MR shoulder RT wo con 11/27/24 IMPRESSION: 1. Full-thickness and partial-thickness tearing of the supraspinatus tendon as described above. 2. Acromioclavicular and glenohumeral joint osteoarthritis. 3. Partial-thickness tearing of the reimplanted biceps tendon. 4. Glenoid labral tearing. Assessment & Plan Assessment & Plan (1) Incomplete rotator cuff tear or rupture of unspecified shoulder, not specified as traumatic: Code(s): M75.110 - Incomplete rotator cuff tear or rupture of unspecified shoulder, not specified as traumatic Category: Medical Plan: This is a 54-year-old gentleman with a right rotator cuff tear. I reviewed his MRI with him in compared it to his 1 from 2019. The supraspinatus tear appears to have progressed but it is partial-thickness with maybe 1 small area of full-thickness toward the leading edge but not retracted and there is also a suggestion of impingement with a downsloping acromion. The subscapularis looks good. On exam and after further conversation with him he is pretty hesitant to have this done now as he discussed some ongoing back treatment but would like to get it done at some point in the next year. I think this is reasonable. There is no full-thickness component that would require urgent treatment. I discussed this with him. He will contact me when he would like to proceed forward. Coding Level of Care Code Est Pt Level 4 (13291) Diagnoses Incomplete rotator cuff tear or rupture of unspecified shoulder, not specified as traumatic M75.110
--- OUTSIDE RECORDS SUMMARY | 2025-01-20 13:44 | XMS_ITS | Encounter Summary ---
Author Organization [facility] [facility] Address [address] [place] [address] Care Team Providers Care Outside B2B Sales Name Role Phone Unavailable Primary Care Provider [...]
--- OUTSIDE RECORDS SUMMARY | 2025-01-20 13:44 | XMS_ITS | Clinical Summary ---
Author Organization [employer] [facility] Address [address] [place] [address] Care Team Providers Care Barrel Roller Name Role Phone Unavailable Primary Care Provider [...] Description 12/25/2024 3:30 PM EDT Office Visit [facility] [address] [place] [address] Kelton Dominique DDS Ill-fitting dentures (Primary Dx) 12/24/2024 10:00 AM EDT Office Visit [facility] [address] [place] [address] Kelton Dominique DDS Ill-fitting dentures (Primary Dx); [...] Most Recently Relevant to Health Maintenance [facility] ST[facility]ULT
--- OUTSIDE RECORDS SUMMARY | 2025-01-20 13:44 | XMS_ITS | Encounter Summary ---
Author Organization [facility] Address [address] [place] [address] Care Team Providers Care Life Assurance Representative Name Role Phone Unavailable Primary Care Provider [...]
== END 2025-01-20 12:34 | disposition home or self-care (01) ==
LOC: HO.HOS 12:14
PROVIDERS: PCP Internal Medicine; Visit Provider Orthopaedic Surgery
DX: M75.111 Incomplete rotator cuff tear or rupture of right shoulder, not specified as traumatic (principal)
CPT/HCPCS: 99213

== ENCOUNTER → 2025-01-20 12:13 | Outpatient (BNVA) | payer OTHER, SELFPAY | PROVIDERS: PCP Internal Medicine; Visit Provider Orthopaedic Surgery | DX: M75.110 Incomplete rotator cuff tear or rupture of unspecified shoulder, not specified as traumatic (principal) | CPT/HCPCS: 99212 ==

== ENCOUNTER → 2025-01-23 14:57 | Outpatient (BNVA) | payer OTHER, SELFPAY | PROVIDERS: PCP Internal Medicine ==

== ENCOUNTER 2025-05-05 15:50 | Outpatient (AMB) | payer OTHER, SELFPAY ==
[2025-05-05 15:57] VITALS: BP 116/76; PULSE 74; O2SAT 95; BMI 30.3
--- NOTE | 2025-05-05 15:57 | MHC.PC.OV ---
Vital Signs 05/05/25 15:57 Height 5 ft 11 in Weight 217 lb 6 oz BMI 30.3 BP 116/76 Blood Pressure Location Lt brachial Position Sitting Pulse 74 Pulse Source Pulse Oximeter Pulse Oximetry (%) 95 Oxygen Delivery Method Room Air Intake Visit Reasons: HTN, low back pain, anxiety, hyperlipidemia Motor Vehicle Clerk Required: No Accompanied by: Self / Same As Patient Allergies tizanidine (TIZANIDINE) Allergy (Severe, Verified 05/06/25 06:01) FACIAL SWELLING, angioedema gabapentin Adverse Reaction (Intermediate, Uncoded 05/06/25 06:01) recurrent cough Medication List - Last Reconciled 05/06/25 by Kalia Varghese MD blood pressure monitor As directed blood pressure test kit-large (Self-Taking Blood Pressure kit) As directed cholecalciferol (vitamin D3) 50 mcg PO DAILY 90 days escitalopram oxalate 5 mg PO DAILY 90 days fenofibrate 160 mg PO DAILY 90 days ibuprofen 800 mg PO TID PRN lidocaine 5% 1 patch topical DAILY losartan 50 mg PO DAILY 90 days methocarbamol 500 mg PO TID PRN 30 days naproxen 500 mg PO BID PRN 30 days [RIGHT HAND BRACE As directed] [RIGHT SHOULDER BRACE As directed] Tobacco use date assessed: 05/05/25 Dental Screening Dental Screen Date: 05/05/25 Did you have a dental visit in the last 12 months?: Yes Did you have a dental problem in the last 6 months where you did not have access to dental care?: No Was dental information given to patient?: Patient has dentist HPI HTN, low back pain, anxiety, hyperlipidemia HPI Details Patient comes in today for his follow-up visit States that he continues to experience increased pain over his right lower back and over multiple joints, especially in his right shoulder States that his current medications do not really help much - he has just been taking ibuprofen 800 mg PRN He has also been to physical therapy, which he states did not help but he would like to try physical therapy again as he currently has no other helpful options available He was seen by Orthopedics a few months ago and recommended to have arthroscopic shoulder surgery done - patient remains very hesitant to have surgery done and would like to have this put off until early next year He denies any headaches or dizziness Denies any chest pains, no increased shortness of breath No nausea/vomiting, no abdominal pain No change in bowel habits noted Needs a few of his Rx refilled He was not able to get his follow-up labs done after his last visit earlier this year [facility] Medical History Osteoarthritis of right hand Lumbar degenerative disc disease Vitamin D deficiency Depression Lateral epicondylitis, right elbow Obesity (BMI 30-39.9) Smoker Migraine Benign essential hypertension Surgical History History of surgery on arm History of arthroscopy of right shoulder Family History Father Medical history unknown Mother Hypertension Diabetes Social History Housing: Apartment Alcohol intake: current Alcohol intake frequency: a few times a month Alcohol type: beer Patient Tobacco Use Status: Current everyday Tobacco user Tobacco use type: Cigarette Cigarettes Per Day: 15 Years Smoked: 30 +/- e-Cigarette/Vaping Use: Never Used Second Hand Smoke Exposure: No service: No Current occupational status: employed Cognitive needs: No Hearing needs: No Vision needs: No Questionnaire PHQ-9 Over the last 2 weeks, how often have you been bothered by any of the following problems? 1. Little interest or pleasure in doing things: not at all 2. Feeling down, depressed, or hopeless: not at all 3. Trouble falling or staying asleep, or sleeping too much: not at all 4. Feeling tired or having little energy: nearly every day 5. Poor appetite or overeating: not at all 6. Feeling bad about yourself - or that you are a failure or have let yourself or your family down: not at all 7. Trouble concentrating on things, such as reading the newspaper or watching television: not at all 8. Moving or speaking so slowly that other people could have noticed. Or the opposite - being so fidgety or restless that you have been moving around a lot more than usual: not at all 9. Thoughts that you would be better off or of hurting yourself in some way: not at all Total score: 3 Depression Screening Interpretation: Positive Depression Screening Follow-up: Existing condition and In treatment Depression Screening Done: Yes 56286 - PHQ-9 Billing: Yes Source: Developed by Drs. Elmer Elkins, Regine Sharma, Carson Lopez and colleagues, with an educational erich from [employer]. Thrive Questionnaire Date Thrive assessed: 05/05/25 I am a: Patient What is your living situation today?: I choose not to answer this question Within the past 12 months, did the food you bought not last and you didn't have the money to get more?: I choose not to answer this question Within the past 12 months, did you worry whether your food would run out before you got money to buy more?: I choose not to answer this question Do you have trouble paying for medicines?: I choose not to answer this question Do you have trouble getting transportation to medical appointments?: I choose not to answer this question Do you have trouble paying your heating and electricity bill?: I choose not to answer this question Do you have trouble taking care of your child, family member or friend?: I choose not to answer this question Do you have trouble with day-to-day activities such as bathing, preparing meals, shopping, managing finances, etc.?: I choose not to answer this question Are you currently unemployed and looking for a job?: I choose not to answer this question Are you interested in more education?: I choose not to answer this question Please select the resources that you would like help with: None Currently or been in a relationship where the following occur: I choose not to answer THRIVE Score: 0 AUDIT C Alcohol Use Questionnaire (AUDIT-C) 1. How often do you have a drink containing alcohol?: 2-4 times a month 2. How many drinks containing alcohol do you have on a typical day when you are drinking?: 1 or 2 3. How often do you have six or more drinks on one occasion?: Never Total Score: 2 Score Reviewed/Action Taken: Yes RYAN-7 AMB Questionnaire RYAN-7 Date RYAN - 7 assessed: 05/05/25 Feeling nervous, anxious, or on edge: 0 = Not at all Not being able to stop or control worryin = Not at all Worrying too much about different things: 0 = Not at all Trouble relaxin = Not at all Being so restless that it is hard to sit still: 0 = Not at all Becoming easily annoyed or irritable: 0 = Not at all Feeling afraid as if something awful might happen: 0 = Not at all Total RYAN-7 score (0-4 normal; 5-9 mild; 10-14 moderate; 15-21 severe): 0 Source: Developed by Drs. Elmer Elkins, Regine Sharma, Carson Lopez and colleagues, with an educational erich from [employer]. Review of Systems Const Denies chills, Reports fatigue, Denies fever(s) and Denies headache(s) ENT Denies dysphagia, Denies dizziness, Denies otalgia, Denies headache(s), Denies neck pain, Denies odynophagia and Denies sore throat Card Denies chest pain, Denies irregular heart rhythm, Denies palpitations and Denies dyspnea Resp Denies chest congestion, Denies cough and Denies dyspnea GI Denies abdominal pain, Denies constipation, Denies dysphagia, Denies heartburn, Denies diarrhea, Denies nausea, Denies odynophagia and Denies vomiting Denies difficulty urinating, Denies dysuria and Denies urinary frequency Musc Details: Increased right shoulder pain lately Reports back pain (increased, over the lower back), Reports arthralgias (on and off in the right ankle, right heel/foot, both hands & shoulders ) and Denies neck pain Skin/Breast Denies rash Neuro Denies dizziness, Denies headache(s) and Denies paresthesias Psych Reports depression (controlled on his current Rx) Endo Reports fatigue and Denies palpitations Physical exam (Primary Care) Vital Signs: Last Vital Signs Pulse 74 05/05/25 15:57 BP 116/76 05/05/25 15:57 Pulse Ox 95 05/05/25 15:57 Oxygen Delivery Method Room Air 05/05/25 15:57 BMI result Body Mass Index 30.3 Tobacco/Smoking Status: Tobacco use Status Tobacco use date assessed 05/05/25 05/05/25 16:03 Patient Tobacco Use Status Current everyday Tobacco 05/05/25 16:03 Tobacco use type Cigarette 05/05/25 16:03 e-Cigarette/Vaping Use Never Used 05/05/25 16:03 PHQ-9: PHQ-9 Score PHQ-9: Total score 3 05/05/25 16:30 Depression Screening Interpretation: Positive Depression Screening Follow-up: Existing condition and In treatment Thrive Assessment: Date of Thrive Assessment Date Thrive assessed 05/05/25 05/05/25 16:03 Currently or been in a relationship where the following occur: I choose not to answer Const General: no acute distress and alert HENMT Ears: TM's normal bilaterally and EAC's normal Throat: Yes posterior oropharynx normal and Yes tonsils normal (no TP congestion) Neck Neck: Yes no lymphadenopathy and Yes supple Thyroid: Thyroid normal Resp Auscultation: clear to auscultation bilaterally, no rales and no wheezes Cardio Rate: regular rate Rhythm: regular rhythm Heart sounds: no murmurs GI Palpation (GI): Soft to palpation and nontender Auscultation: normal bowel sounds General: Yes no CVA tenderness Back/Spine/Pelvis Back: no CVA tenderness Thoracic/Lumbar Spine: paraspinal muscle tenderness on the right in the mid lumbar and in the lower lumbar and lumbar spinal tenderness Skin Rashes: no rashes Extrem General: Yes no clubbing, cyanosis or edema Right upper extremity: shoulder/upper arm Details: tenderness Location: of the A-C joint Coding Level of Care Code Est Pt Level 4 (62832) Diagnoses Hypertriglyceridemia E78.1 Benign essential hypertension I10 Impaired fasting glucose R73.01 Migraine without status migrainosus, not intractable, unspecified migraine type G43.909 Migraine type: unspecified Status migrainosus presence: without status migrainosus Intractability: not intractable Vitamin D deficiency E55.9 Degeneration of intervertebral disc of lumbar region with discogenic back pain and lower extremity pain M51.362 Disc-related pain type: discogenic back pain and lower extremity pain Primary osteoarthritis of right hand M19.041 Osteoarthritis type: primary Right rotator cuff tear arthropathy M75.101; M12.811 Episode of recurrent major depressive disorder, unspecified depression episode severity F33.9 Depression Type: major depressive disorder Major depression recurrence: recurrent Active/Remission status: currently active Major depression episode severity: unspecified Smoker F17.200 Obesity (BMI 30-39.9) E66.9 Additional Codes PHQ-9 - 36875 - PHQ-9 Billing: Yes ([id number]) Assessment & Plan Assessment & Plan (1) Hypertriglyceridemia: Code(s): E78.1 - Pure hyperglyceridemia Category: Medical Plan: Will have patient recheck his fasting lipids DIANNE as he was again not able to get his follow-up labs done prior to his appointment today Reinforced low cholesterol diet Continue Fenofibrate 160 mg QD Will recheck his labs and fasting lipids again in 4 months for follow up (2) Benign essential hypertension: Code(s): I10 - Essential (primary) hypertension Category: Medical Plan: Reinforced low sodium diet - goal is systolic BP of 120 mm or less Continue Losartan 50 mg QD (3) Impaired fasting glucose: Code(s): R73.01 - Impaired fasting glucose Category: Medical Plan: His HgbA1c was normal at 5.2% when last checked in August 2023 Reinforced low calorie/low carb diet Will recheck his FBS for follow up (4) Migraine: Code(s): G43.909 - Migraine, unspecified, not intractable, without status migrainosus Category: Medical Qualifiers: Migraine type: unspecified Status migrainosus presence: without status migrainosus Intractability: not intractable Qualified Code(s): G43.909 - Migraine, unspecified, not intractable, without status migrainosus Plan: Appears controlled/stable - he was taken off both Topiramate and Fioricet by neurology a while back and he has not had any significant increase in his headaches since Follow up with neurology as scheduled (5) Vitamin D deficiency: Code(s): E55.9 - Vitamin D deficiency, unspecified Category: Medical Plan: Continue Vitamin D3 2000 units QD Will recheck his Vitamin D level for follow up (6) Lumbar degenerative disc disease: Comment: Symptoms radiate posteriorly down both lower extremities to the feet but are slightly worse on the left side; reports occasional feelings of weakness in both legs Code(s): M51.369 - Other intervertebral disc degeneration, lumbar region without mention of lumbar back pain or lower extremity pain Category: Medical Qualifiers: Disc-related pain type: discogenic back pain and lower extremity pain Qualified Code(s): M51.362 - Other intervertebral disc degeneration, lumbar region with discogenic back pain and lower extremity pain Plan: Reinforced activity and weight-lifting restrictions to avoid aggravating his low back pain X-rays of the lumbar spine done back in August 2023 revealed (+) multi-level lumbar Schmorl's node formation. The lumbar disc spaces are well-maintained and no acute fracture or spondylolisthesis is seen He reportedly had an MRI of the lumbar spine done with [facility] more recently that revealed a disc bulge and left anterior disc herniation at L5-S1 with mild to moderate left foraminal narrowing He apparently also had a lumbar interlaminar injection which did not help He has tried physical therapy last year without any improvement but would now like to try PT again as everything that he has tried since have not helped He was previously tried on Gabapentin 100 mg TID but he stopped the Rx due to side effects (increased coughing) He has also tried Cyclobenzaprine but felt that this did not help He is currently on Pregabalin 75 mg BID prescribed by [facility] Continue Lidocaine 5% patches QD to his lower back PRN for pain, Methocarbamol 750 mg TID and Ibuprofen 800 mg TID We tried changing his Ibuprofen to Naproxen 500 mg BID PRN with food at his last visit but he states that Naproxen helped less than Ibuprofen did so he is now back on Ibuprofen Follow-up with [facility] as scheduled for pain management (7) Osteoarthritis of right hand: Code(s): M19.041 - Primary osteoarthritis, right hand Category: Medical Qualifiers: Osteoarthritis type: primary Qualified Code(s): M19.041 - Primary osteoarthritis, right hand Plan: X-rays of both hands done in 2022 revealed (+) OA changes in the right hand; left hand x-rays are normal Arthralgia work ups done (MARY, RF, CRP, ESR) also came back normal EMG & NCV of both hands done back in March 2023 revealed (+) 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 and mild bilateral ulnar neuropathy across the cubital tunnel He is currently wearing a wrist brace on his right hand/wrist, which he states is helping somewhat; have advised him again of option of seeing orthopedics for consideration for carpal tunnel release surgery if his symptoms progress (8) Right rotator cuff tear arthropathy: Code(s): M75.101 - Unspecified rotator cuff tear or rupture of right shoulder, not specified as traumatic; M12.811 - Other specific arthropathies, not elsewhere classified, right shoulder Category: Medical Plan: MRI of the right shoulder done in November 2024 revealed (+) full-thickness and partial-thickness tearing of the supraspinatus tendon, acromioclavicular and glenohumeral joint osteoarthritis, partial-thickness tearing of the reimplanted biceps tendon and glenoid labral tearing He was seen by Dr. Wallace a few months ago and was recommended to undergo arthroscopic surgery of the shoulder, which patient would like to put off until early next year Follow up with orthopedics as scheduled (9) Depression: Code(s): F32.A - Depression, unspecified Category: Medical Qualifiers: Depression Type: major depressive disorder Major depression recurrence: recurrent Active/Remission status: currently active Major depression episode severity: unspecified Qualified Code(s): F33.9 - Major depressive disorder, recurrent, unspecified Plan: Continue Escitalopram 5 mg QD (10) Smoker: Code(s): F17.200 - Nicotine dependence, unspecified, uncomplicated Category: Social Hx Plan: Patient is counseled again on complete smoking cessation (11) Obesity (BMI 30-39.9): Code(s): E66.9 - Obesity, unspecified Category: Medical Plan: Reinforced diet; exercise and weight loss are not practical at present due to his increased low back pain and physical issues Plan Follow up in 4 months Orders: Orders PT Evaluation and Treatment 05/05/25 M54.50 - Low back pain, unspecified UA CC w/rflx Micro + Cult 4 Months R30.0 - Dysuria UA CC w/rflx Micro + Cult 05/05/25 R30.0 - Dysuria Comprehensive [place]. Panel Fast 4 Months E78.00 - Pure hypercholesterolemia, unspecified Lipid Panel 4 Months E78.00 - Pure hypercholesterolemia, unspecified Medications: Refilled methocarbamol 500 mg PO TID PRN 90 tabs 0RF low back pain 30 days cholecalciferol (vitamin D3) 50 mcg PO DAILY 90 caps 3RF 90 days E55.9 - Vitamin D deficiency, unspecified ibuprofen Take with food as needed 800 mg PO TID PRN 90 tabs 0RF pain
== END 2025-05-05 16:36 | disposition home or self-care (01) ==
LOC: HO.HMCH 15:50
PROVIDERS: PCP Internal Medicine; Visit Provider Internal Medicine
DX: E78.1 Pure hyperglyceridemia (principal); I10 Essential (primary) hypertension; E66.9 Obesity, unspecified; Z68.30 Body mass index [BMI] 30.0-30.9, adult; R73.01 Impaired fasting glucose; G43.909 Migraine, unspecified, not intractable, without status migrainosus; E55.9 Vitamin D deficiency, unspecified; M51.362 Other intervertebral disc degeneration, lumbar region with discogenic back pain and lower extremity pain; M19.041 Primary osteoarthritis, right hand; M75.101 Unspecified rotator cuff tear or rupture of right shoulder, not specified as traumatic; M12.811 Other specific arthropathies, not elsewhere classified, right shoulder; F33.9 Major depressive disorder, recurrent, unspecified

== ENCOUNTER → 2025-05-05 15:50 | Outpatient (BNVA) | payer OTHER, SELFPAY | PROVIDERS: PCP Internal Medicine; Visit Provider Internal Medicine | DX: I10 Essential (primary) hypertension (principal); M54.50 Low back pain, unspecified; F41.9 Anxiety disorder, unspecified; E78.5 Hyperlipidemia, unspecified; E78.1 Pure hyperglyceridemia; R73.01 Impaired fasting glucose; G43.909 Migraine, unspecified, not intractable, without status migrainosus; E55.9 Vitamin D deficiency, unspecified; M51.362 Other intervertebral disc degeneration, lumbar region with discogenic back pain and lower extremity pain; M19.041 Primary osteoarthritis, right hand; M75.101 Unspecified rotator cuff tear or rupture of right shoulder, not specified as traumatic; M12.811 Other specific arthropathies, not elsewhere classified, right shoulder; F33.9 Major depressive disorder, recurrent, unspecified; F17.210 Nicotine dependence, cigarettes, uncomplicated; E66.9 Obesity, unspecified; Z68.30 Body mass index [BMI] 30.0-30.9, adult | CPT/HCPCS: 96127; 99212 ==

== ENCOUNTER 2025-08-05 14:20 | Outpatient (AMB) | payer OTHER, SELFPAY ==
[2025-08-05 14:50] VITALS: BP 132/86; PULSE 80; RESP 18; O2SAT 97; BMI 29.0
--- NOTE | 2025-08-05 14:50 | A.OFFPC_ITS ---
Vital Signs 08/05/25 14:50 Height 5 ft 11 in Weight 208 lb 4 oz BMI 29.0 BP 132/86 Blood Pressure Location Lt brachial Position Sitting Respiration 18 Pulse 80 Pulse Source Pulse Oximeter Temp Source Temporal Artery Scan Pulse Oximetry (%) 97 Oxygen Delivery Method Room Air Intake Visit Reasons: RT RTC repair 08/12/[address] Wallace [employer] Lab Technician Required: No Accompanied by: Self / Same As Patient Allergies tizanidine (TIZANIDINE) Allergy (Severe, Verified 08/05/25 15:03) FACIAL SWELLING, angioedema gabapentin Adverse Reaction (Intermediate, Uncoded 08/05/25 15:03) recurrent cough Medication List - Last Reconciled 08/05/25 by BHAKTI Araujo blood pressure monitor As directed blood pressure test kit-large (Self-Taking Blood Pressure kit) As directed cholecalciferol (vitamin D3) 50 mcg PO DAILY 90 days escitalopram oxalate 5 mg PO DAILY 90 days fenofibrate 160 mg PO DAILY 90 days ibuprofen 800 mg PO TID PRN lidocaine 5% 1 patch topical DAILY losartan 50 mg PO DAILY 90 days methocarbamol 500 mg PO TID PRN 30 days [RIGHT HAND BRACE As directed] [RIGHT SHOULDER BRACE As directed] Tobacco use date assessed: 08/05/25 Dental Screening Dental Screen Date: 08/05/25 Did you have a dental visit in the last 12 months?: Yes Did you have a dental problem in the last 6 months where you did not have access to dental care?: No Was dental information given to patient?: Patient has dentist HPI RT RTC repair 08/12/[address] Wallace HPI Details The patient is a 54-year-old male presenting for preop clearance. Patient of Dr. Varghese, was last seen in office on 05/05/2025. Patient reports right shoulder pain worsening over the past year. Reports that he is unable to lift his right hand above shoulder height. This has affected his life significantly and impaired daily function. He had had injection that only helped for short time. Patient had an MRI of the right shoulder without contrast on 11/27/2024 that showed full-thickness and partial-thickness tearing of the supraspinatus tendon, acromioclavicular and glenohumeral joint arthritis, partial thickness tearing of the implanted biceps tendon. Glenoid labral tearing. Patient to scheduled for right rotator cuff surgery on 08/12/[address] Wallace at [facility] [place] orthopedics [facility] Patient reports similar surgery before under generalized anesthesia without any issues. Patient denies postoperative hypothermia or any clotting disorder and he is not on any blood thinners or immune suppressant medications. The patient does report and history of recurrent chest pain associated with a crushing accident. Reports that he has been worked up many times and this is not cardiac related. Patient had a stress test on 09/07/2022 without anginal symptoms, with isolated PACs and PVCs, with hypertensive response to exercise without any EKG changes meeting criteria for ischemia. Echocardiogram on 08/23/2022 showed normal LV systolic function, normal cardiac valvular Doppler, EF of 55-60% Most Recent EKG on file is in 08/10/2022 that shows sinus Shaquille otherwise normal heart rhythm. We will order an EKG for part of the clearance for the patient's surgery, along with a CMP, CBC, INR, A1c to further evaluate the patient status for proposed surgery. The patient is currently smoking 15 cigarettes a day-he was counseled on the risk of blood clot. Encouraged cessation. [facility] Medical History Osteoarthritis of right hand Lumbar degenerative disc disease Vitamin D deficiency Depression Lateral epicondylitis, right elbow Obesity (BMI 30-39.9) Smoker Migraine Benign essential hypertension Surgical History History of surgery on arm History of arthroscopy of right shoulder Family History Father Medical history unknown Mother Hypertension Diabetes Social History Housing: Apartment Alcohol intake: current Alcohol intake frequency: a few times a month Alcohol type: beer Patient Tobacco Use Status: Current everyday Tobacco user Tobacco use type: Cigarette Cigarettes Per Day: 15 Years Smoked: 30 +/- e-Cigarette/Vaping Use: Never Used Second Hand Smoke Exposure: No service: No Current occupational status: employed Cognitive needs: No Hearing needs: No Vision needs: No Questionnaire Thrive Questionnaire Date Thrive assessed: 05/05/25 Currently or been in a relationship where the following occur: I choose not to answer THRIVE Score: 0 RYAN-7 AMB Questionnaire RYAN-7 Date RYAN - 7 assessed: 05/05/25 Source: Developed by Drs. Elmer Elkins, Regine Sharma, Carson Lopez and colleagues, with an educational erich from [employer]. Review of Systems Const Denies chills, Reports fatigue, Denies fever(s) and Denies headache(s) ENT Denies dysphagia, Denies dizziness, Denies otalgia, Denies headache(s), Denies neck pain, Denies odynophagia and Denies sore throat Card Denies chest pain, Denies irregular heart rhythm, Denies palpitations and Denies dyspnea Resp Denies chest congestion, Denies cough and Denies dyspnea GI Denies abdominal pain, Denies constipation, Denies dysphagia, Denies heartburn, Denies diarrhea, Denies nausea, Denies odynophagia and Denies vomiting Denies difficulty urinating, Denies dysuria and Denies urinary frequency Musc Details: Increased right shoulder pain lately Reports back pain (increased, over the lower back), Reports arthralgias (on and off in the right ankle, right heel/foot, both hands & shoulders ) and Denies neck pain Skin/Breast Denies rash Neuro Denies dizziness, Denies headache(s) and Denies paresthesias Psych Reports depression (controlled on his current Rx) Endo Reports fatigue and Denies palpitations Physical exam (Primary Care) Vital Signs: Last Vital Signs Pulse 80 08/05/25 14:50 Resp 18 08/05/25 14:50 BP 132/86 08/05/25 14:50 Pulse Ox 97 08/05/25 14:50 Oxygen Delivery Method Room Air 08/05/25 14:50 BMI result Body Mass Index 29.0 Tobacco/Smoking Status: Tobacco use Status Tobacco use date assessed 08/05/25 08/05/25 14:59 Patient Tobacco Use Status Current everyday Tobacco 08/05/25 14:59 Tobacco use type Cigarette 08/05/25 14:59 e-Cigarette/Vaping Use Never Used 08/05/25 14:59 Thrive Assessment: Date of Thrive Assessment Date Thrive assessed 05/05/25 08/05/25 14:59 Currently or been in a relationship where the following occur: I choose not to answer Const General: no acute distress and alert HENMT Ears: TM's normal bilaterally and EAC's normal Throat: Yes posterior oropharynx normal and Yes tonsils normal (no TP congestion) Neck Neck: Yes no lymphadenopathy and Yes supple Thyroid: Thyroid normal Resp Auscultation: clear to auscultation bilaterally, no rales and no wheezes Cardio Rate: regular rate Rhythm: regular rhythm Heart sounds: S1 normal heart sound present, S2 normal heart sound present and no murmurs GI Palpation (GI): Soft to palpation and nontender Auscultation: normal bowel sounds General: Yes no CVA tenderness Back/Spine/Pelvis Back: no CVA tenderness Thoracic/Lumbar Spine: paraspinal muscle tenderness on the right in the mid lumbar and in the lower lumbar and lumbar spinal tenderness Skin Rashes: no rashes Extrem General: Yes no clubbing, cyanosis or edema Right upper extremity: shoulder/upper arm Details: tenderness Location: of the A-C joint Coding Level of Care Code Est Pt Level 4 (68517) Diagnoses Preoperative clearance Z01.818 Right rotator cuff tear arthropathy M75.101; M12.811 Benign essential hypertension I10 Impaired fasting glucose R73.01 Migraine without status migrainosus, not intractable, unspecified migraine type G43.909 Intractability: not intractable Migraine type: unspecified Status migrainosus presence: without status migrainosus Vitamin D deficiency E55.9 Degeneration of intervertebral disc of lumbar region with discogenic back pain and lower extremity pain M51.362 Disc-related pain type: discogenic back pain and lower extremity pain Primary osteoarthritis of right hand M19.041 Osteoarthritis type: primary Episode of recurrent major depressive disorder, unspecified depression episode severity F33.9 Active/Remission status: currently active Depression Type: major depressive disorder Major depression episode severity: unspecified Major depression recurrence: recurrent Smoker F17.200 Obesity (BMI 30-39.9) E66.9 Time Spent (min) 39 Assessment & Plan Assessment & Plan (1) Preoperative clearance: Code(s): Z01.818 - Encounter for other preprocedural examination Category: Medical Plan: Plan: Labs and EKG ordered as part of the patient general clearance. He will be cleared upon completion of these tests if they are within reasonable ranges. Regarding preop clearance, the patient is at acceptable risk for proposed surgery otherwise. Reviewed with the patient that no surgery is completely free of risk and that this examination is to assist the surgeon in reviewing informed consent. (2) Right rotator cuff tear arthropathy: Code(s): M75.101 - Unspecified rotator cuff tear or rupture of right shoulder, not specified as traumatic; M12.811 - Other specific arthropathies, not elsewhere classified, right shoulder Category: Medical Plan: MRI of the right shoulder done in November 2024 revealed (+) full-thickness and partial-thickness tearing of the supraspinatus tendon, acromioclavicular and glenohumeral joint osteoarthritis, partial- thickness tearing of the reimplanted biceps tendon and glenoid labral tearing He has a planned rotator cuff repair on 08/12/[address] Wallace Follow up with orthopedics as scheduled (3) Benign essential hypertension: Code(s): I10 - Essential (primary) hypertension Category: Medical Plan: Blood pressure 132/86-systolic goal of less than 130 mm Hg Encouraged low-salt diet Continue losartan 50 mg daily (4) Impaired fasting glucose: Code(s): R73.01 - Impaired fasting glucose Category: Medical Plan: His HgbA1c was normal at 5.2% when last checked in August 2023. Labs ordered t o further evaluate this. Reinforced low calorie/low carb diet Will recheck his FBS for follow up (5) Migraine: Code(s): G43.909 - Migraine, unspecified, not intractable, without status migrainosus Category: Medical Qualifiers: Intractability: not intractable Migraine type: unspecified Status migrainosus presence: without status migrainosus Qualified Code(s): G43.909 - Migraine, unspecified, not intractable, without status migrainosus Plan: Appears controlled/stable - he was taken off both Topiramate and Fioricet by neurology a while back and he has not had any significant increase in his headaches since Follow up with neurology as scheduled (6) Vitamin D deficiency: Code(s): E55.9 - Vitamin D deficiency, unspecified Category: Medical Plan: Continue Vitamin D3 2000 units daily (7) Lumbar degenerative disc disease: Comment: Symptoms radiate posteriorly down both lower extremities to the feet but are slightly worse on the left side; reports occasional feelings of weakness in both legs Code(s): M51.369 - Other intervertebral disc degeneration, lumbar region without mention of lumbar back pain or lower extremity pain Category: Medical Qualifiers: Disc-related pain type: discogenic back pain and lower extremity pain Qualified Code(s): M51.362 - Other intervertebral disc degeneration, lumbar region with discogenic back pain and lower extremity pain Plan: Reinforced activity and weight-lifting restrictions to avoid aggravating his low back pain X-rays of the lumbar spine done back in August 2023 revealed (+) multi-level lumbar Schmorl's node formation. The lumbar disc spaces are well-maintained and no acute fracture or spondylolisthesis is seen He reportedly had an MRI of the lumbar spine done with [facility] more recently that revealed a disc bulge and left anterior disc herniation at L5-S1 with mild to moderate left foraminal narrowing He apparently also had a lumbar interlaminar injection which did not help He has tried physical therapy last year without any improvement but would now like to try PT again as everything that he has tried since have not helped He was previously tried on Gabapentin 100 mg TID but he stopped the Rx due to side effects (increased coughing) He has also tried Cyclobenzaprine but felt that this did not help He is currently on Pregabalin 75 mg BID prescribed by [facility] Continue Lidocaine 5% patches QD to his lower back PRN for pain, Methocarbamol 750 mg TID and Ibuprofen 800 mg TID We tried changing his Ibuprofen to Naproxen 500 mg BID PRN with food at his last visit but he states that Naproxen helped less than Ibuprofen did so he is now back on Ibuprofen Follow-up with [facility] as scheduled for pain management (8) Osteoarthritis of right hand: Code(s): M19.041 - Primary osteoarthritis, right hand Category: Medical Qualifiers: Osteoarthritis type: primary Qualified Code(s): M19.041 - Primary osteoarthritis, right hand Plan: X-rays of both hands done in 2022 revealed (+) OA changes in the right hand; left hand x-rays are normal Arthralgia work ups done (MARY, RF, CRP, ESR) also came back normal EMG & NCV of both hands done back in March 2023 revealed (+) 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 and mild bilateral ulnar neuropathy across the cubital tunnel He is currently wearing a wrist brace on his right hand/wrist, which he states is helping somewhat; have advised him again of option of seeing orthopedics for consideration for carpal tunnel release surgery if his symptoms progress (9) Depression: Code(s): F32.A - Depression, unspecified Category: Medical Qualifiers: Active/Remission status: currently active Depression Type: major depressive disorder Major depression episode severity: unspecified Major depression recurrence: recurrent Qualified Code(s): F33.9 - Major depressive disorder, recurrent, unspecified Plan: encouraged CBT denies si/hi Continue Escitalopram 5 mg daily (10) Smoker: Code(s): F17.200 - Nicotine dependence, unspecified, uncomplicated Category: Social Hx Plan: Encouraged smoking cessation (11) Obesity (BMI 30-39.9): Code(s): E66.9 - Obesity, unspecified Category: Medical Plan: Discussed lifestyle modifications including dietary changes and physical activity to aid in weight loss. Orders: Orders Hemoglobin A1c 08/05/25 Z01.818 - Encounter for other preprocedural examination Complete Blood Count Auto Diff 08/05/25 Z.818 - Encounter for other preprocedural examination Comprehensive Met. Panel 08/05/25 Z01.818 - Encounter for other preprocedural examination TSH reflex Free T4 08/05/25 Z.818 - Encounter for other preprocedural examination UA CC w/rflx Micro + Cult 08/05/25 Z.818 - Encounter for other preprocedural examination Prothrombin Time INR 08/05/25 Z01.818 - Encounter for other preprocedural examination ECG 12 lead EKG 08/05/25 Z01.818 - Encounter for other preprocedural examination
== END 2025-08-05 15:22 | disposition home or self-care (01) ==
LOC: HO.HMCH 14:21
DX: Z01.818 Encounter for other preprocedural examination (principal); M75.101 Unspecified rotator cuff tear or rupture of right shoulder, not specified as traumatic; M12.811 Other specific arthropathies, not elsewhere classified, right shoulder; I10 Essential (primary) hypertension; R73.01 Impaired fasting glucose; G43.909 Migraine, unspecified, not intractable, without status migrainosus; E55.9 Vitamin D deficiency, unspecified; M51.362 Other intervertebral disc degeneration, lumbar region with discogenic back pain and lower extremity pain; M19.041 Primary osteoarthritis, right hand; F33.9 Major depressive disorder, recurrent, unspecified; F17.200 Nicotine dependence, unspecified, uncomplicated; E66.9 Obesity, unspecified

== ENCOUNTER → 2025-08-05 14:20 | Outpatient (BNVA) | payer OTHER, SELFPAY | DX: Z01.818 Encounter for other preprocedural examination (principal); M75.101 Unspecified rotator cuff tear or rupture of right shoulder, not specified as traumatic; M12.811 Other specific arthropathies, not elsewhere classified, right shoulder | CPT/HCPCS: 99212 ==

== ENCOUNTER 2025-08-08 12:41 | Outpatient (AMB) | payer OTHER, SELFPAY ==
--- NOTE | 2025-08-08 12:57 | MHC.OFFVIS ---
Vital Signs 08/08/25 13:12 Height 5 ft 11 in Weight 208 lb BMI 29.0 BP 147/94 H Blood Pressure Location Lt brachial Position Sitting Pulse 75 Intake Visit Reasons: Preop RT RTC repair 08/12/25 [place] Intake Note: Ramon is a 54 year old right hand dominant male who presents today for a pre - operative appointmetn for his upcoming Right Rotator Cuff Repair on 08/12/25 [facility] [place]. Patient reports that he has had a lot of stress lately due to a in the family. he has been staying with his Mother to help take care of her, but his mother will be going to stay with his brother after surgery. Patient was provided with pain mgmt agreement to review, fit for a sling and pre op vitals obtained BP was notibly high, but he states that he did not take his BP medication. 1st bp: 151/104 2nd bp: 147/94 Allergies tizanidine (TIZANIDINE) Allergy (Severe, Verified 08/05/25 15:03) FACIAL SWELLING, angioedema gabapentin Adverse Reaction (Intermediate, Uncoded 08/05/25 15:03) recurrent cough HPI HPI Preop RT RTC repair 08/12/25 NE: Details: 54-year-old gentleman presents to the office today for orthopedic surgery clearance. He is scheduled for a right shoulder rotator cuff repair on 08/12/[address] Wallace. The patient has had 2 previous shoulder surgeries with the most recent being a right shoulder rotator cuff repair in October of [address] Wallace. In May of 2024 I saw him for an evaluation of right shoulder pain. He was complaining of pain for several months which radiated into the subdeltoid distribution of the shoulder which was worse with overhead activity and at night. He has tried several courses of physical therapy with little to no relief. In November of 2024 he returned after completing physical therapy because he was experiencing worsening weakness and limitations with daily activities. At that time an MRI of the right shoulder was ordered which was significant for full-thickness and partial-thickness tearing of the supraspinatus tendon, acromial and glenohumeral joint arthritis, partial-thickness tearing of the biceps tendon and glenoid labral tearing. The patient and Dr. Wallace had a thorough discussion about the options which included conservative versus surgical intervention and the patient contacted our office to proceed with surgical intervention. Patient was seen by his primary care physician for a preop clearance 08/05/2025:Kyrie Liang The patient is a 54-year-old male presenting for preop clearance. Patient of Dr. Varghese, was last seen in office on 05/05/2025. Patient reports right shoulder pain worsening over the past year. Reports that he is unable to lift his right hand above shoulder height. This has affected his life significantly and impaired daily function. He had had injection that only helped for short time. Patient had an MRI of the right shoulder without contrast on 11/27/2024 that showed full-thickness and partial-thickness tearing of the supraspinatus tendon, acromioclavicular and glenohumeral joint arthritis, partial thickness tearing of the implanted biceps tendon. Glenoid labral tearing. Patient to scheduled for right rotator cuff surgery on 08/12/[address] Wallace at [facility] orthoped[facility] Patient reports similar surgery before under generalized anesthesia without any issues. Patient denies postoperative hypothermia or any clotting disorder and he is not on any blood thinners or immune suppressant medications. The patient does report and history of recurrent chest pain associated with a crushing accident. Reports that he has been worked up many times and this is not cardiac related. Patient had a stress test on 09/07/2022 without anginal symptoms, with isolated PACs and PVCs, with hypertensive response to exercise without any EKG changes meeting criteria for ischemia. Echocardiogram on 08/23/2022 showed normal LV systolic function, normal cardiac valvular Doppler, EF of 55-60% Most Recent EKG on file is in 08/10/2022 that shows sinus Shaquille otherwise normal heart rhythm. We will order an EKG for part of the clearance for the patient's surgery, along with a CMP, CBC, INR, A1c to further evaluate the patient status for proposed surgery. The patient is currently smoking 15 cigarettes a day-he was counseled on the risk of blood clot. Encouraged cessation. Plan: Labs and EKG ordered as part of the patient general clearance. He will be cleared upon completion of these tests if they are within reasonable ranges. Regarding preop clearance, the patient is at acceptable risk for proposed surgery otherwise. Reviewed with the patient that no surgery is completely free of risk and that this examination is to assist the surgeon in reviewing informed consent. PFSH Medical History Osteoarthritis of right hand Lumbar degenerative disc disease Vitamin D deficiency Depression Lateral epicondylitis, right elbow Obesity (BMI 30-39.9) Smoker Migraine Benign essential hypertension Surgical History History of surgery on arm History of arthroscopy of right shoulder Family History Father Medical history unknown Mother Hypertension Diabetes Social History Housing: Apartment Alcohol intake: current Alcohol intake frequency: a few times a month Alcohol type: beer Patient Tobacco Use Status: Current everyday Tobacco user Tobacco use type: Cigarette Cigarettes Per Day: 15 Years Smoked: 30 +/- e-Cigarette/Vaping Use: Never Used Second Hand Smoke Exposure: No service: No Current occupational status: employed Cognitive needs: No Hearing needs: No Vision needs: No Review of Systems Const All systems reviewed & are unremarkable except as noted in HPI and below Physical Exam Vital Signs: Last Vital Signs Pulse 75 08/08/25 13:12 BP 147/94 H 08/08/25 13:12 BMI result Body Mass Index 29.0 Extrem Other: Skin intact without open wounds or abraisons. He has a 4+5 empty can and positive Quinn and Neer. Assessment & Plan Assessment & Plan (1) Incomplete rotator cuff tear or rupture of unspecified shoulder, not specified as traumatic: Code(s): M75.110 - Incomplete rotator cuff tear or rupture of unspecified shoulder, not specified as traumatic Category: Medical Plan: Mr Rush has a right shoulder rotator cuff tear which would benefit from surgical intervention for optimal functioning. The patient does understand nonsurgical intervention would result in significantly limited function. Given the patient's activity level , it would be recommended to pursue surgical intervention. We discussed the procedure in detail along with the risks benefits and alternatives. Risks including but not limited to infection, injury to surrounding nerves and tissue and bone, small and large vessels, stiffness,need for further surgery, DVT/PE along with intraoperative complications including but not limited to . We discussed postoperative recovery which includes a sling for 6 weeks followed by extensive physical therapy. The patient does express understanding we would like to proceed with right shoulder rotator cuff repair with Dr. Wallace. He was fit for a sling while in the office today. Consent form signed and scanned into the chart. The patient will be booked accordingly. Coding Level of Care Code Complex visit Add On G2211 Diagnoses Incomplete rotator cuff tear or rupture of unspecified shoulder, not specified as traumatic M75.110
[2025-08-08 13:12] VITALS: BP 147/94; PULSE 75; BMI 29.0
== END 2025-08-08 13:27 | disposition home or self-care (01) ==
LOC: HO.HOS 12:41
PROVIDERS: PCP Internal Medicine; Visit Provider Physician Assistant
DX: M75.110 Incomplete rotator cuff tear or rupture of unspecified shoulder, not specified as traumatic (principal)
CPT/HCPCS: 99214

== ENCOUNTER → 2025-08-08 12:41 | Outpatient (BNVA) | payer OTHER, SELFPAY | PROVIDERS: PCP Internal Medicine; Visit Provider Physician Assistant | DX: Z01.818 Encounter for other preprocedural examination (principal); M75.111 Incomplete rotator cuff tear or rupture of right shoulder, not specified as traumatic | CPT/HCPCS: 99212 ==

== ENCOUNTER → 2025-08-08 13:28 | Outpatient (BNV) | payer OTHER, SELFPAY | PROVIDERS: PCP Internal Medicine; Visit Provider Internal Medicine | DX: Z01.818 Encounter for other preprocedural examination (principal); R94.31 Abnormal electrocardiogram [ECG] [EKG] | CPT/HCPCS: 93010 ==

== ENCOUNTER 2025-08-12 06:43 | Day surgery (SDC) | payer OTHER, SELFPAY ==
[2025-08-08 12:35] LABS: MANUAL DIFF FLAG NO
--- OUTSIDE RECORDS SUMMARY | 2025-08-08 12:48 | XMS_ITS | Encounter Summary ---
Author Organization [employer] [facility] Address [address] [place] [address] Care Team Providers Care Kiln Drawer Name Role Phone Unavailable Primary Care Provider [...]
--- OUTSIDE RECORDS SUMMARY | 2025-08-08 12:48 | XMS_ITS | Clinical Summary ---
Author Organization [employer] Address [address] [place] [address] Care Team Providers Care Grave Cleaner Name Role Phone Unavailable Primary Care Provider [...] Panel 1972 SDOH Screening 1972 Sigmoidoscopy 1972 Disability Screening 1972 Alcohol/Substance Use Screening 1984 Family Planning (PISQ) 1987 Hepatitis C Screening 1990 Hepatitis B Vaccines (1 of 3 - 19+ 3-dose series) 1991 Pneumococcal Vaccine: 50+ Years (1 of 2 - PCV) 1991 Dental Prophylaxis 09/02/2021 03/02/2021, 02/13/2019 Zoster Vaccines (1 of 2) 2022 COVID-19 Vaccine (3 - 2024- season) 2025 10/14/2021, 09/23/2021 Influenza Vaccine (#1) 2025 , 08/03/2021, 07/29/2020, Additional history exists Dental [...] patient's age to complete this topic Meningococcal B Vaccine Aged Out No l onger eligible based on patient's age to complete [...] Procedure Name Priority Date/Time Associated Diagnosis Comments INTRAORAL - COMPLETE SERIES OF RADIOGRAPHIC IMAGES Routine 12/24/2024 10:00 AM EDT PERIODIC ORAL EVALUATION - ESTABLISHED PATIENT Routine 12/24/2024 10:00 AM EDT PROPHYLAXIS - ADULT Routine 03/02/2021 1 2:00 AM EDT from Last 3 Months or Most Recently Relevant to Health Maintenance Insurance [facility] MEDICAID STAND ADULT
--- OUTSIDE RECORDS SUMMARY | 2025-08-08 12:48 | XMS_ITS | Encounter Summary ---
Author Organization [employer] [facility] Address [address] [place] [address] Care Team Providers Care Computer Typesetter Name Role Phone Unavailable Primary Care Provider [...]
--- NOTE | 2025-08-08 13:28 | ECG_ITS ---
Test Reason : Z01.818 Blood Pressure : */* mmHG Vent. Rate : 73 BPM Atrial Rate : 73 BPM P-R Int : 134 ms QRS Dur : 92 ms QT Int : 386 ms P-R-T Axes : -4 12 21 degrees QTcB Int : 425 ms Normal sinus rhythm Inferior infarct , age undetermined Abnormal ECG When compared with ECG of 30-Oct-2019 13:46, Nonspecific T wave abnormality has replaced inverted T waves in Inferior leads Referred By: Kyrie Liang Electronically Signed By: RICARDO HUDSON
[2025-08-08 13:42] LABS: Hematocrit 46.7 % (42.0-52.0); Hemoglobin 15.6 g/dl (14.0-18.0); Imm Gran Abs Auto 0.02 X10*3/uL (0.00-0.03); Imm Gran Pct Auto 0.2 % (0.0-0.4); Lymphocytes Absolute Auto 3.3 X10*3/uL (1.2-4.9); Mean Corpuscular HGB Conc 33.4 g/dl (31.0-36.0); Mean Corpuscular Hemoglobin 29.7 pg (27.0-33.0); Mean Corpuscular Volume 88.8 fL (80.0-98.0); NRBC Abs Auto 0.000 X10*3/uL (0.0-0.012); NRBC Pct Auto 0.0 /100WBC (0.0-0.2); Platelet Count 315 X10*3/uL (160-400); Red Blood Count 5.26 X10*6/uL (4.60-5.80); White Blood Count 8.2 X10*3/uL (4.8-10.8)
[2025-08-08 13:46] LABS: INTERNATIONAL NORM RATIO 1.0 (0.9-1.1); Prothrombin Time 12.2 SEC (11.2-13.5)
[2025-08-08 13:56] LABS: Hemoglobin A1C 151.6117 umol/L
[2025-08-08 14:15] VITALS: BP 134/80; PULSE 79; RESP 16; O2SAT 98; BMI 29.4
[2025-08-08 14:25] LABS: Appearance Urine Clear; Glucose Urine UA Negative (Negative); PH 8.5 (5.0-9.0); Specific Gravity - Urine <= 1.005 (1.005-1.025)
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
[2025-08-08 14:43] LABS: Alanine Aminotransferase 44 U/L (0-40); Albumin Level 5.1 g/dL (3.5-5.0); Alkaline Phosphatase 88 U/L (39-117); Anion Gap 14 (12-20); Aspartate Amino Transferase 30 U/L (5-37); Blood Urea Nitrogen 9 mg/dL (9-16); Calcium 9.5 mg/dL (8.4-10.2); Carbon Dioxide 28 mmol/L (22-29); Chloride 106 mmol/L (96-108); Creatinine Clr Calc Pharmacy 129.1; Estimated Glomerular Filt Rate > 60; Potassium 4.0 mmol/L (3.3-5.1); Sodium 144 mmol/L (135-145); Total Protein 7.9 g/dL (6.5-8.0)
[2025-08-12] VITALS (8 sets, daily range): BP systolic 125–146; BP diastolic 63–93; PULSE 68–77; RESP 16–20; TEMP 36.2–36.8; O2SAT 94–100; BMI 29.3
[2025-08-12] MEDS: Lactated Ringers 1,000 ML 100 ML IVCONT (07:49)
--- NOTE | 2025-08-12 12:00 | MHC.SHP ---
Pre-Procedural Eval Section A - 24 Hr Update-Section A only Date of Service: 08/12/25 The patient is an INPATIENT: No Changes since office visit: No Cold of Flu in the past 2 weeks, No New Medical Problems, No Changes in Medication and No Patient answered all questions The patient has been examined within 24 hours of the surgical procedure. The History & Physical has been completed within 30 days and I have reviewed it.: Yes Section B - Complete if H&P > 30 days Chief Complaint: Complete rotator cuff tear or rupture of right Allergies: Allergies Allergy/AdvReac Type Severity Reaction Status Date / Time tizanidine (TIZANIDINE) Allergy Severe FACIAL Verified 08/05/25 15:03 SWELLING, angioedema gabapentin AdvReac Intermediate recurrent Uncoded 08/05/25 15:03 cough Plan I have reviewed the history and physical and performed a pertinent physical examination on my patient. No changes have occurred unless specified. Time Spent With Patient Time: Total time managing care of this patient today ____ minutes.
--- NOTE | 2025-08-12 14:04 | P.BOP_ITS ---
Brief Operative Note Date of Service: 08/12/25 Pre-op diagnosis: right RTC tear Post-op diagnosis: same Procedure: Right RTC repair Implants: Tai and Nephew 4.75 x 2 and 5.5 x 2 Surgeon: William Wallace MD Anesthesia: GETA and regional Was an Financial Services Representative used for this Procedure?: Yes Financial Services Representative: Tonya Peters Estimated blood loss (mL): 20 IV fluids (mL): 1,000 Pathology: none sent Condition: stable Disposition: PACU
--- NOTE | 2025-08-18 12:07 | W.PM.OPN ---
Operative Note Operative Note Date of Service: 08/12/25 Narrative: Date of Service: 08/12/25 Pre-op diagnosis: right RTC tear Post-op diagnosis: same Procedure: Right RTC repair Implants: Tai and Nephew 4.75 x 2 and 5.5 x 2 Surgeon: William Wallace MD Anesthesia: GETA and regional Was an Electronic Industrial Controls Mechanic used for this Procedure?: Yes Electronic Industrial Controls Mechanic: Tonya Peters Estimated blood loss (mL): 20 IV fluids (mL): 1,000 Pathology: none sent Condition: stable Disposition: PACU Procedure in detail: Patient was brought to the operating room and placed the the beach chair position. All bony prominences were well padded and the limb was prepped and draped in standard sterile fashion. A time out was called to identify proper site, proper procedure and proper surgeon. IV antibiotics per weight were administered. I began by making a posterolateral stab incision with a 15 blade. A blunt trochar was placed into the glenohumeral joint and I insufflated the joint with saline and a 30 degree arthroscope was placed. I established an outside- in anterior portal just distal to the biceps tendon. I then began my inspection of the glenohumeral joint. There was a small degenerative superior labral tearing and a previously tenotomized biceps. There were cartilage changes at the inferior glenoid and associated humeral head changes. There was a full thickness undersurface RTC tear. The subcapularis was intact. I debrided the loose cartilage of the glenoid and the degenerative labral tearing and performed a biceps tenotomy. I then removed the trochar and entered the subacromial space. A direct lateral portal was then established and I performed a bursectomy. The cuff was then examined. There was a full thickness tear of the supraspinatus with retraction. The anterior half of the infraspinatus was torn but mobile. The supraspinatus however was completely retracted and totally unrepairable. I therefore placed 2 4.75 medial row anchors at the junction of the superior head and cartilage slightly posteriorly at the level of the infraspinatus. I then repaired the anterior half of the infraspinatus using a standard double row technique. A bur was used to debride the bare area down to bleeding bone. The infraspinatus was repairable but there was still a gap where the unrepairable supraspinatus was. I brought the suture limbs from the medial row through the infraspinatus I then debrided the bare area down to bleeding bone and, using a cross bridge configuration, brought 4 limbs to each of two lateral 5.0 anchors. This re-approximated the infraspinatus anatomy anatomically. Once I was satisfied with the repair final images were captured and I removed all instrumentation. Portals were closed with nylon. Patient was placed in an abduction sling, extubated and brought to the recovery room in stable condition. There were no known complications.
== END 2025-08-12 16:19 | disposition home or self-care (01) ==
PROVIDERS: PCP Internal Medicine; Visit Provider Orthopaedic Surgery
PROC: (CPT 29827; principal; 2025-08-12 10:30)
DX: M75.121 Complete rotator cuff tear or rupture of right shoulder, not specified as traumatic (principal); M25.511 Pain in right shoulder; M19.011 Primary osteoarthritis, right shoulder; M19.041 Primary osteoarthritis, right hand; I10 Essential (primary) hypertension; R73.01 Impaired fasting glucose; J45.909 Unspecified asthma, uncomplicated; E55.9 Vitamin D deficiency, unspecified; G43.909 Migraine, unspecified, not intractable, without status migrainosus; F33.9 Major depressive disorder, recurrent, unspecified; R07.89 Other chest pain; Z87.828 Personal history of other (healed) physical injury and trauma; E66.9 Obesity, unspecified; Z68.29 Body mass index [BMI] 29.0-29.9, adult; Z79.1 Long term (current) use of non-steroidal anti-inflammatories (NSAID); F17.210 Nicotine dependence, cigarettes, uncomplicated; Z79.899 Other long term (current) drug therapy; Z98.890 Other specified postprocedural states; Z88.8 Allergy status to other drugs, medicaments and biological substances
CPT/HCPCS: 29827; 29823; 36415; 80053; 81003; 83036; 84443; 85025; 85610; 93005; C1713; J0131; J0165; J0665; J0690; J1100; J1805; J1885; J2003; J2250; J2405; J2704

== ENCOUNTER → 2025-08-12 06:43 | Outpatient (BNV) | payer OTHER, SELFPAY | PROVIDERS: PCP Internal Medicine; Visit Provider Orthopaedic Surgery | DX: M75.111 Incomplete rotator cuff tear or rupture of right shoulder, not specified as traumatic (principal) | CPT/HCPCS: 29827 ==

== ENCOUNTER 2025-08-21 13:26 | Outpatient (AMB) | payer OTHER, SELFPAY ==
--- NOTE | 2025-08-21 14:04 | MHC.OFFVIS ---
Intake Visit Reasons: PO RT RTC repair 08/12/25 NE Intake Note: Ramon is a 54 year old male who presents today post operatively after undergoing a right RTC repair, performed by Dr. Wallace on 08/12/25. Patient reports he is doing well, stating he has been performing exercises as instructed. Allergies tizanidine (TIZANIDINE) Allergy (Severe, Verified 08/21/25 14:08) FACIAL SWELLING, angioedema gabapentin Adverse Reaction (Intermediate, Uncoded 08/21/25 14:08) recurrent cough Medication List - Last Reconciled 08/21/25 by Tonya Peters PA-C acetaminophen 650 mg (2 x 325 mg) PO Q6H PRN 30 days blood pressure monitor As directed blood pressure test kit-large (Self-Taking Blood Pressure kit) As directed cholecalciferol (vitamin D3) 50 mcg PO DAILY 90 days escitalopram oxalate 5 mg PO DAILY 90 days fenofibrate 160 mg PO DAILY 90 days ibuprofen 800 mg PO TID PRN lidocaine 5% 1 patch topical DAILY losartan 50 mg PO DAILY 90 days methocarbamol 500 mg PO TID PRN 30 days morphine ER (MS Contin) 15 mg PO Q12H 3 days oxycodone 5 mg PO Q4H PRN 7 days [RIGHT HAND BRACE As directed] [RIGHT SHOULDER BRACE As directed] HPI HPI PO RT RTC repair 08/12/25 NE: Details: 54-year-old gentleman returns to the office today status post right shoulder rotator cuff repair on 08/12/[address] Frias. The patient is doing well. He is wearing a sling. He has concerns about working with physical therapy because he does not want to re-injure the shoulder. [facility] Medical History Hx of trauma (~2008) Abdominal hernia Arthritis History of headache Asthma Osteoarthritis of right hand Lumbar degenerative disc disease Vitamin D deficiency Depression Lateral epicondylitis, right elbow Obesity (BMI 30-39.9) Smoker Migraine Benign essential hypertension Surgical History History of surgery on arm History of arthroscopy of right shoulder Family History Father Medical history unknown Mother Hypertension Diabetes Social History Housing: Apartment Are you a primary urgent care to a significant other at home: No Do you presently have visiting nurse or other home services: No Alcohol intake: current Alcohol intake frequency: holidays/special occasions only Alcohol type: beer Comment: medicated with toradol IV Patient Tobacco Use Status: Current everyday Tobacco user Tobacco use type: Cigarette Cigarettes Per Day: 2 Years Smoked: 30 +/- e-Cigarette/Vaping Use: Never Used Second Hand Smoke Exposure: No service: No Current occupational status: employed Cognitive needs: No Hearing needs: No Vision needs: No Review of Systems Const All systems reviewed & are unremarkable except as noted in HPI and below Physical Exam Extrem Other: Right shoulder incisions are clean dry and intact. No erythema or drainage. Neurovascularly intact. Results Reviewed Results Reviewed: Brief Operative Note Date of Service: 08/12/25 Pre-op diagnosis: right RTC tear Post-op diagnosis: same Procedure: Right RTC repair Implants: [employer] Nephew 4.75 x 2 and 5.5 x 2 Surgeon: William Wallace MD Assessment & Plan Assessment & Plan (1) Incomplete rotator cuff tear or rupture of unspecified shoulder, not specified as traumatic: Code(s): M75.110 - Incomplete rotator cuff tear or rupture of unspecified shoulder, not specified as traumatic Category: Medical Plan: Sutures removed today Steri-Strips applied. He will begin physical therapy to work on passive and active assisted range of motion. Periscapular stabilization. No rotator cuff strengthening for 6 weeks. Sling at all times unless for therapy and hygiene. An order was placed in the patient was advised to make an appointment. He will remain out of work until his next appointment. The patient will return in [address] Wallace, sooner if needed. Orders: Orders PT Evaluation and Treatment Today M75.110 - Incomplete rotator cuff tear or rupture of unspecified shoulder, not specified as traumatic Coding Level of Care Code Global (88418) Diagnoses Incomplete rotator cuff tear or rupture of unspecified shoulder, not specified as traumatic M75.110
== END 2025-08-21 15:43 | disposition home or self-care (01) ==
LOC: HO.HOS 13:26
PROVIDERS: PCP Internal Medicine; Visit Provider Physician Assistant
DX: M75.110 Incomplete rotator cuff tear or rupture of unspecified shoulder, not specified as traumatic (principal)
CPT/HCPCS: 99024

== ENCOUNTER → 2025-08-21 13:26 | Outpatient (BNVA) | payer OTHER, SELFPAY | PROVIDERS: PCP Internal Medicine; Visit Provider Physician Assistant | DX: Z47.89 Encounter for other orthopedic aftercare (principal); M75.111 Incomplete rotator cuff tear or rupture of right shoulder, not specified as traumatic | CPT/HCPCS: 99212 ==